=== PATIENT | female | born 1965 | race Caucasian/White ===

== ENCOUNTER → 2016-03-13 | Outpatient (CLI) | payer BC ==
[~2016-03-13] MED LIST: ADV250INH INH; ALBU83IN INH; IP6 PO; MAGN400T5 PO; MULT1TAB8 PO; NACCAP PO; SPIR1CAP INH; THEO300C PO; ZYRT10CA PO
[2016-03-13 20:59] LABS: BASO # 0.1 K/mm3 (0.0-0.2); BASO % 0.6 % (0.0-1.0); EOS # 0.2 K/mm3 (0.0-0.50); EOS % 1.3 % (0.0-3.0); LARGE UNSTAINED CELL # 0.2 K/mm3 (0.0-0.4); LARGE UNSTAINED CELL % 1.4 % (0.0-4.0); LYMPH # 1.3 K/mm3 (1.5-4.5); MEAN CORPUSCULAR HEMOGLOBIN 29.5 pg (27.0-33.0); MEAN CORPUSCULAR HGB CONC 32.5 g/dl (32.0-36.5); MEAN CORPUSCULAR VOLUME 90.7 fl (80.0-96.0); MONO # 0.6 K/mm3 (0.0-0.8); MONO % 4.9 % (0.0-5.0); NEUTROPHILS # 10.5 K/mm3 (1.8-7.7); NEUTROPHILS % 81.8 % (36.0-66.0); PLATELET COUNT, AUTOMATED 346 k/mm3 (150-450); RED CELL DISTRIBUTION WIDTH 12.1 % (11.5-14.5); WHITE BLOOD COUNT 12.8 K/mm3 (4.0-10.0)
== END ==
LOC: M SMT 15:27
PROVIDERS: ATTEND Internal Medicine Pulmonary Disease
DX: J44.1 Chronic obstructive pulmonary disease with (acute) exacerbation (principal)

== ENCOUNTER → 2016-04-17 | Outpatient (REF) | payer BC ==
[~2016-04-17] MED LIST changes: +THEO1CAP4 PO; -THEO300C PO
[2016-04-17 18:03] LABS: BASO % 0.3 % (0.0-1.0); EOS # 0.1 K/mm3 (0.0-0.50); EOS % 0.9 % (0.0-3.0); LARGE UNSTAINED CELL # 0.1 K/mm3 (0.0-0.4); LARGE UNSTAINED CELL % 1.2 % (0.0-4.0); LYMPH % 9.4 % (24.0-44.0); MEAN CORPUSCULAR HEMOGLOBIN 29.2 pg (27.0-33.0); MEAN CORPUSCULAR HGB CONC 32.3 g/dl (32.0-36.5); MEAN CORPUSCULAR VOLUME 90.5 fl (80.0-96.0); MONO # 0.5 K/mm3 (0.0-0.8); MONO % 4.6 % (0.0-5.0); NEUTROPHILS # 8.5 K/mm3 (1.8-7.7); NEUTROPHILS % 83.6 % (36.0-66.0); PLATELET COUNT, AUTOMATED 259 k/mm3 (150-450); RED CELL DISTRIBUTION WIDTH 12.7 % (11.5-14.5); WHITE BLOOD COUNT 10.1 K/mm3 (4.0-10.0)
[2016-04-17 18:16] LABS: ALBUMIN 3.8 GM/DL (3.2-5.2); ALBUMIN/GLOBULIN RATIO 1.09 (1.00-1.93); ALKALINE PHOSPHATASE 76 U/L (45-117); ALT/SGPT 21 U/L (12-78); ANION GAP 9 MEQ/L (8-16); AST/SGOT 22 U/L (15-37); BILIRUBIN,TOTAL 0.3 MG/DL (0.2-1.0); BLOOD UREA NITROGEN 13 MG/DL (7-18); CARBON DIOXIDE LEVEL 32 MEQ/L (21-32); CHLORIDE LEVEL 99 MEQ/L (98-107); CREATININE FOR GFR 0.58 MG/DL (0.55-1.02); GLOMERULAR FILTRATION RATE > 60.0 (>51); GLUCOSE, FASTING 116 MG/DL (70-105); SODIUM LEVEL 140 MEQ/L (136-145); THEOPHYLLINE LEVEL 4.2 UG/ML (10.0-20.0); TOTAL PROTEIN 7.3 GM/DL (6.4-8.2)
[2016-04-17 18:17] LABS: POTASSIUM SERUM 4.7 MEQ/L (3.5-5.1)
== END ==
LOC: M LAB REF 16:46
PROVIDERS: ATTEND Internal Medicine Pulmonary Disease
DX: J44.1 Chronic obstructive pulmonary disease with (acute) exacerbation (principal)

== ENCOUNTER → 2016-05-20 | Outpatient (CLI) | payer BC ==
--- NOTE | 2016-05-23 10:04 | SLEEPCENT ---
DATE OF STUDY: 05/20/2016 ORDERING PROVIDER: COBY Myers Nocturnal polysomnography was performed for evaluation of sleep apnea symptoms in this patient with excessive somnolence and abnormal nocturnal recording oximetry. 7 hours and 56 minutes of data were reviewed. There were 293 minutes of sleep identified. Sleep latency was prolonged at 76 minutes. Rapid eye movement (REM) latency was normal at 85 minutes. Sleep architecture showed fragmentation and periods of awake throughout the night. Overall sleep efficiency was reduced at 62.4%. There were three REM periods appreciated. Electrocardiogram (EKG) showed a sinus rhythm with an average heart rate of 88 beats per minute. Rate variability was seen surrounding respiratory events. Rate ranged 55-102. Electroencephalogram (EEG) showed normal waveforms for awake and sleep. There was mild alpha intrusion in non-REM stages. No focal events were identified. There were 45 respiratory events identified of 10 seconds in duration or greater for an apnea-hypopnea index of 9.2. The events were primarily obstructive, not exclusive to sleep stage, though REM clustering was identified late in the study, and not exclusive to body posture. Arousals from respiratory events occurred seven times per hour, and oxygen desaturations were seen into the 70s. Additionally, limb activity was noted with resultant arousals 9.2 times per hour. Only one train of 30 events was identified. IMPRESSION: 1. Obstructive sleep apnea syndrome (G47.33). Apnea-hypopnea index 9.2. 2. Possible periodic limb movement disorder (G47.61). Limb movement arousal index 9.2. RECOMMENDATION: Given the patient's advanced underlying lung disease and profound hypoxemia, referral back to the sleep disorder center for in-laboratory pressure titration is recommended. Pending results of pressure therapy, interventions to reduce the frequency arousal from limb activity may also be helpful.
== END ==
LOC: M SLEEP 20:10
PROVIDERS: ATTEND Nurse Practitioner Adult Health
DX: G47.33 Obstructive sleep apnea (adult) (pediatric) (principal)

== ENCOUNTER → 2016-05-21 | Outpatient (CLI) | payer BC | LOC: M SMT 15:41 | PROVIDERS: ATTEND Nurse Practitioner Adult Health | DX: J44.1 Chronic obstructive pulmonary disease with (acute) exacerbation (principal) ==

== ENCOUNTER → 2016-06-11 | Outpatient (CLI) | payer BC ==
--- NOTE | 2016-06-13 14:31 | SLEEPCENT ---
DATE OF PROCEDURE: 06/11/2016 REQUESTING PROVIDER: Nedra Justice NP INTERPRETATION: Nocturnal polysomnography was performed for the titration of pressure therapy in this patient with obstructive sleep apnea syndrome, apnea-hypopnea index of 9.2. For testing, a ResMed Quattro full face mask of small size was used, 4 cm of water pressure were applied to the circuit and the lights were extinguished. 6 hours and 51 minutes of data were reviewed. There were 347 minutes of sleep identified. Sleep latency was mildly prolonged at 17 minutes. Rapid eye movement (REM) latency was more so prolonged at 120 minutes. Sleep architecture improved with optimal pressure therapy. There were four REM periods appreciated. Overall sleep efficiency was 85%. EKG showed a sinus rhythm with an occasional premature ventricular contractions (PVCs), average heart rate of 78 beats per minute. Electroencephalogram (EEG) showed reasonably normal waveforms for awake and sleep. Respiratory events were found best palliated with CPAP at a pressure of +7. Hypoventilatory oxygen desaturations prompted the addition of supplemental oxygen and best sleep was seen at a CPAP pressure of +7 with 2 liters of oxygen bled through the system. Some limb activity was seen late in the study. Limb movement arousal index was 9.3, similar to diagnostic night. IMPRESSION: 1. Obstructive sleep apnea syndrome (G47.33). 2. Periodic limb movement disorder (G47.61). RECOMMENDATIONS: Nightly use of pressure therapy at 7 cm of water with 2 liters of oxygen bled through the system should be sufficient to address the patient's respiratory disruption. Should sleep problems persist, interventions to reduce the frequency or arousals from limb activity may also be helpful.
== END ==
LOC: M SLEEP 19:55
PROVIDERS: ATTEND Nurse Practitioner Adult Health
DX: G47.33 Obstructive sleep apnea (adult) (pediatric) (principal); G47.61 Periodic limb movement disorder

== ENCOUNTER → 2016-09-14 | Outpatient (REF) | payer BC ==
[~2016-09-14] MED LIST changes: -NACCAP PO; +NACCAP2 PO
== END ==
LOC: M LAB REF 17:18
PROVIDERS: ATTEND Internal Medicine Pulmonary Disease
DX: J44.9 Chronic obstructive pulmonary disease, unspecified (principal)

== ENCOUNTER → 2016-11-13 | Outpatient (REF) | payer BC | LOC: M LAB REF 17:05 | PROVIDERS: ATTEND Nurse Practitioner Adult Health | DX: J44.1 Chronic obstructive pulmonary disease with (acute) exacerbation (principal) ==

== ENCOUNTER → 2016-12-06 | Outpatient (REF) | payer BC ==
[2016-12-06 20:03] LABS: MEAN CORPUSCULAR HEMOGLOBIN 29.1 pg (27.0-33.0); MEAN CORPUSCULAR HGB CONC 31.6 g/dl (32.0-36.5); MEAN CORPUSCULAR VOLUME 92.1 fl (80.0-96.0); PLATELET COUNT, AUTOMATED 277 10^3/uL (150-450); RED CELL DISTRIBUTION WIDTH 12.8 % (11.5-14.5); WHITE BLOOD COUNT 14.7 10^3/uL (4.0-10.0)
[2016-12-06 20:06] LABS: ADD MANUAL DIFFER YES; DIFF SLIDE NUMBER 336
[2016-12-06 22:03] LABS: BASOPHILS 2 % (0-4)
== END ==
LOC: M LAB REF 19:03
PROVIDERS: ATTEND Internal Medicine Pulmonary Disease
DX: J44.9 Chronic obstructive pulmonary disease, unspecified (principal)

== ENCOUNTER 2016-12-07 13:08 | Outpatient (RCR) | payer BC | END 2016-12-08 | LOC: M PR 13:08 | PROVIDERS: ATTEND Internal Medicine Pulmonary Disease | DX: Z51.89 Encounter for other specified aftercare (principal); J43.1 Panlobular emphysema ==

== ENCOUNTER → 2016-12-11 | Outpatient (REF) | payer BC | LOC: M LAB REF 09:14 | PROVIDERS: ATTEND Internal Medicine Pulmonary Disease | DX: J44.1 Chronic obstructive pulmonary disease with (acute) exacerbation (principal) ==

== ENCOUNTER 2017-01-07 15:32 | Outpatient (RCR) | payer BC | END 2017-01-08 | LOC: M PR 15:32 | PROVIDERS: ATTEND Internal Medicine Pulmonary Disease | DX: J43.1 Panlobular emphysema (principal) ==

== ENCOUNTER 2017-01-09 08:38 | Outpatient (RCR) | payer BC | END 2017-02-07 | LOC: M PR 08:38 | PROVIDERS: ATTEND Internal Medicine Pulmonary Disease | DX: J43.1 Panlobular emphysema (principal) ==

== ENCOUNTER → 2017-01-28 | Outpatient (REF) | payer BC | LOC: M LAB REF 09:42 | PROVIDERS: ATTEND Internal Medicine Pulmonary Disease | DX: J44.1 Chronic obstructive pulmonary disease with (acute) exacerbation (principal) ==

== ENCOUNTER 2017-02-08 09:12 | Outpatient (RCR) | payer BC | END 2017-03-10 | LOC: M PR 09:12 | DX: J43.1 Panlobular emphysema (principal) ==

== ENCOUNTER 2017-03-12 09:27 | Outpatient (RCR) | payer BC | END 2017-04-10 | LOC: M PR 09:27 | DX: Z51.89 Encounter for other specified aftercare (principal); J43.1 Panlobular emphysema ==

== ENCOUNTER → 2017-05-09 | Outpatient (CLI) | payer BC ==
[2017-05-09 18:33] LABS: BASO # 0.1 10^3/uL (0.0-0.2); BASO % 0.9 % (0.0-1.0); EOS # 0.2 10^3/uL (0.0-0.50); EOS % 1.8 % (0.0-3.0); HEMOGLOBIN 14.8 g/dl (12.0-16.0); IMMATURE GRANULOCYTE % 0.2 % (0-3.0); LYMPH % 10.5 % (24.0-44.0); MEAN CORPUSCULAR HEMOGLOBIN 29.6 pg (27.0-33.0); MEAN CORPUSCULAR HGB CONC 32.2 g/dl (32.0-36.5); MONO # 0.7 10^3/uL (0.0-0.8); MONO % 7.2 % (0.0-5.0); NEUTROPHILS # 7.8 10^3/uL (1.8-7.7); NEUTROPHILS % 79.4 % (36.0-66.0); PLATELET COUNT, AUTOMATED 262 10^3/uL (150-450); RED CELL DISTRIBUTION WIDTH 12.5 % (11.5-14.5); WHITE BLOOD COUNT 9.9 10^3/uL (4.0-10.0)
[2017-05-09 18:44] LABS: THEOPHYLLINE LEVEL 7.8 UG/ML (10.0-20.0)
== END ==
LOC: M SMT 14:30
DX: J44.1 Chronic obstructive pulmonary disease with (acute) exacerbation (principal)
CPT/HCPCS: 80198

== ENCOUNTER 2017-09-05 12:36 | Outpatient (RCR) | payer BC | END 2017-09-07 | LOC: M PR 12:36 | DX: Z51.89 Encounter for other specified aftercare (principal); J43.1 Panlobular emphysema ==

== ENCOUNTER 2017-09-13 14:00 | Outpatient (RCR) | payer BC | END 2017-10-08 | LOC: M PR 09-18 14:26 | DX: Z51.89 Encounter for other specified aftercare (principal); J43.1 Panlobular emphysema ==

== ENCOUNTER 2017-10-10 14:42 | Outpatient (RCR) | payer BC | END 2017-11-08 | LOC: M PR 14:42 | DX: J43.1 Panlobular emphysema (principal) ==

== ENCOUNTER 2017-11-14 14:13 | Outpatient (RCR) | payer BC | END 2017-12-08 | LOC: M PR 14:13 | DX: J43.1 Panlobular emphysema (principal) ==

== ENCOUNTER 2017-12-09 14:34 | Outpatient (RCR) | payer BC | END 2018-01-08 | LOC: M PR 14:34 | DX: J43.1 Panlobular emphysema (principal) ==

== ENCOUNTER 2017-12-30 15:35 | Outpatient (RCR) | payer SELFPAY | END 2018-01-08 | LOC: M PR 15:35 | DX: J43.1 Panlobular emphysema (principal) | CPT/HCPCS: 93797 ==

== ENCOUNTER 2018-03-20 14:41 | Outpatient (RCR) | payer SELFPAY ==
[~2018-03-20 14:41] MED LIST changes: +BREO1INH3 INH; +CENTCHW4 PO; +DOXY-350 PO; +LEVA1TAB2 PO; +LEVAINH INH; +MAGN200T PO; +MUCI600T31 PO; +NAC500CA PO; +NETT435C PO; +PROBCAP14 PO; +THEO1CAP2 PO; +XANA0.5T PO; +[UNRECOGNIZED DRUG - CODE] PO; +[UNRECOGNIZED DRUG - CODE] PO; +[UNRECOGNIZED DRUG - CODE] XX; +[UNRECOGNIZED DRUG - OTHER]; +[UNRECOGNIZED DRUG - OTHER] PO
== END 2018-04-10 ==
LOC: M PR 14:41
PROVIDERS: ATTEND Internal Medicine Pulmonary Disease
DX: J43.1 Panlobular emphysema (principal)

== ENCOUNTER → 2018-04-08 | Outpatient (CLI) | payer BC ==
--- NOTE | 2018-04-08 16:06 | REP ---
Clinical: Dyspnea. Technique: PA and lateral. Comparison: 01/21/2017. Findings: Advanced COPD and emphysematous changes with scattered scarring and interstitial disease remains stable. Mediastinum and cardiac silhouette are unchanged and within normal limits. No focal consolidation, effusion, or pneumothorax skeletal structures intact. Impression: 1. Advanced COPD and emphysematous disease with perihilar and upper lobe scarring and interstitial changes. Findings remain relatively stable. 2. No new acute mediastinal or pleuroparenchymal process identified. Electronically Signed by Steve Minaya MD 04/08/2018 03:57 P
== END ==
LOC: M SMT 15:27
PROVIDERS: ATTEND Internal Medicine Pulmonary Disease
DX: J44.9 Chronic obstructive pulmonary disease, unspecified (principal); R07.1 Chest pain on breathing

== ENCOUNTER 2018-06-12 14:00 | Outpatient (RCR) | payer SELFPAY ==
[~2018-06-12 14:00] MED LIST changes: +NACCAP PO; -NACCAP2 PO
== END 2018-07-08 ==
LOC: M PR 14:00
PROVIDERS: ATTEND Internal Medicine Pulmonary Disease
DX: J43.1 Panlobular emphysema (principal)

== ENCOUNTER → 2018-08-12 | Outpatient (CLI) | payer BC ==
[~2018-08-12] MED LIST changes: +ACET1TAB55 PO; +CETI10TA4 PO; +IBUP-1022 PO; +INCR1INH INH; +L-THEANINE PO; +LEVA0.6322 INH; +LIDO1PAD TOP; +MAGN400C PO; +MULTCAP PO; +NETTLE LEAF PO; +PANT40TA3; +PASSION FLOWER PO; +PRED10TA2 PO; +THEO300T13 PO; +TRAM50TA2; +[UNRECOGNIZED DRUG - CODE] PO
--- NOTE | 2018-08-13 01:56 | REP ---
Clinical: Bronchiectasis. Technique: PA and lateral. Comparison: 04/08/2018. Findings: Advanced COPD/emphysematous changes are appreciated primarily involving the bilateral lower lung zones with upper lobe fibrosis/scarring. No focal consolidation, effusion, or pneumothorax appreciated. The cardiac silhouette is normal. Impression: Advanced COPD/emphysematous changes with upper lobe scarring and fibrotic changes. No obvious acute process. If the patient remains symptomatic consider chest CT for further investigation. Electronically Signed by Steve Minaya MD 08/13/2018 01:48 A
== END ==
LOC: M SMT 11:28
PROVIDERS: ATTEND Internal Medicine Pulmonary Disease
DX: J43.9 Emphysema, unspecified (principal); J84.10 Pulmonary fibrosis, unspecified

== ENCOUNTER → 2018-08-25 | Outpatient (CLI) | payer BC ==
--- NOTE | 2018-08-25 13:35 | REP ---
CHEST X-RAY: TWO VIEWS. HISTORY: Chronic obstructive pulmonary disease. COMPARISON CHEST X-RAY: August 12, 2018 and April 08, 2018. FINDINGS: The lungs remain markedly hyperinflated with extensive emphysematous changes most pronounced in the lower lobes bilaterally where there is oligemia and some mild bilateral perihilar and bibasilar linear fibrosis. Heart is not enlarged. No acute infiltrate is seen. Findings are unchanged from comparison exams. IMPRESSION: Severe emphysematous changes principally in the lower lobes. No acute infiltrate is appreciated. Electronically Signed by Ramone Paredes MD 08/25/2018 01:43 P
== END ==
LOC: M ADAMS 12:17
PROVIDERS: ATTEND Physician Assistant Medical
DX: J44.9 Chronic obstructive pulmonary disease, unspecified (principal)

== ENCOUNTER → 2018-08-26 | Outpatient (REF) | payer BC | LOC: M LAB REF 17:10 | PROVIDERS: ATTEND Internal Medicine Pulmonary Disease | DX: J44.1 Chronic obstructive pulmonary disease with (acute) exacerbation (principal) ==

== ENCOUNTER → 2018-09-03 | Outpatient (REF) | payer BC | LOC: M LAB REF 12:56 | PROVIDERS: ATTEND Internal Medicine Pulmonary Disease | DX: J44.9 Chronic obstructive pulmonary disease, unspecified (principal) ==

== ENCOUNTER 2018-10-20 11:46 | Inpatient (IN) | payer BC, MEDICARE ==
[~2018-10-20] VITALS: Ht 167.6 cm; Wt 44.6 kg
[2018-10-20] MEDS: ENOXAPARIN 40 MG/0.4 ML SYRINGE (J1650) SC SCH (09:00)
[2018-10-20 14:10] VITALS: BP 126/69
[2018-10-20 14:53] LABS: HEMATOCRIT 41.9 % (36.0-47.0); HEMOGLOBIN 12.6 g/dl (12.0-15.5); MEAN CORPUSCULAR HEMOGLOBIN 28.2 pg (27.0-33.0); MEAN CORPUSCULAR HGB CONC 30.1 g/dl (32.0-36.5); MEAN CORPUSCULAR VOLUME 93.7 fl (80.0-96.0); PLATELET COUNT, AUTOMATED 246 10^3/uL (150-450); RED BLOOD COUNT 4.47 10^6/uL (4.00-5.40); WHITE BLOOD COUNT 8.3 10^3/uL (4.0-10.0)
[2018-10-20] MEDS ORDERED: diphenhydrAMINE 25 MG CAP PO ONE (15:00)
[2018-10-20] MEDS ORDERED: predniSONE 20 MG TAB PO ONE (15:00)
[2018-10-20 15:14] LABS: ALBUMIN 3.6 GM/DL (3.2-5.2); ALT/SGPT 24 U/L (12-78); BILIRUBIN,TOTAL 0.2 MG/DL (0.2-1.0); BLOOD UREA NITROGEN 19 MG/DL (7-18); C REACTIVE PROTEIN QUANTITATIV < 0.30 MG/DL (0.00-0.30); CALCIUM LEVEL 9.1 MG/DL (8.5-10.1); CARBON DIOXIDE LEVEL 38 MEQ/L (21-32); CHLORIDE LEVEL 98 MEQ/L (98-107); CK-MB VALUE MASS 2.1 NG/ML (<3.6); CPK CREATINE PHOSPHOKINASE 62 U/L (26-192); CREATININE FOR GFR 0.36 MG/DL (0.55-1.30); GLOMERULAR FILTRATION RATE > 60.0 (>51); GLUCOSE, FASTING 91 MG/DL (70-100); MB/CK RELATIVE INDEX 3.39 (< OR =4); POTASSIUM SERUM 3.8 MEQ/L (3.5-5.1); SODIUM LEVEL 141 MEQ/L (136-145); TOTAL PROTEIN 6.9 GM/DL (6.4-8.2); TROPONIN I < 0.02 NG/ML (< 0.10)
[2018-10-20 15:16] LABS: ERYTHROCYTE SEDIMENTATION RATE 24 mm/hr (0-30)
[2018-10-20] MEDS ORDERED: ALPRAZolam 0.5 MG TAB PO PRN (15:45)
[2018-10-20] MEDS ORDERED: VENTAER INH (16:01)
[2018-10-20] MEDS ORDERED: ALPR0.25 PO (16:01)
[2018-10-20] MEDS ORDERED: ALPRAZolam 0.25 MG TAB PO PRN (16:30)
[2018-10-20] MEDS: LACTOBACILLUS ACIDOPHILUS CAP (BACID) PO SCH (17:27)
--- NOTE | 2018-10-20 17:57 | REP ---
REASON: Cough and dyspnea. All priors were reviewed. The latest of which is dated 07/29/2018. The lack of intravenous contrast decreases the sensitivity of the exam. The mediastinum and pulmonary ro are unchanged. There is no evidence of mediastinal or hilar adenopathy. There are no pleural or pericardial effusions. There is no significant change in the appearance of the imaged upper abdomen or imaged osseous structures. Evaluation of the lung kramer again show chronic emphysematous changes which are rather marked. Multifocal nodular density seen previously throughout the lung kramer have nearly completely cleared with the exception of a density in the superior segment of the left lower lobe which has increased slightly in size. There are no frankly new abnormal nodules. There is marked lung field hyperexpansion and marked emphysematous change status quo. There is saccular bronchiectasis status quo. Scattered ground glass opacities are again seen with biapical predominance status quo. IMPRESSION: Marked emphysematous changes and chronic lung field changes as described above. The nodular density seen in the superior segment of the left lower lobe has increased in size. The etiology of this is uncertain. If neoplastic change is of clinical concern then I would recommend followup with PET CT. Electronically Signed by Scooter Chu DO 10/21/2018 11:57 A
[2018-10-20] MEDS: PIPERACILLIN/TAZOBACTAM SOD 4.5 GM in D5W MINI-BAG PLUS 50 ML IV SCH ×2 (18:36→21:24)
--- NOTE | 2018-10-20 18:41 | REP ---
REASON: History of pneumonia. COMPARISON: Multiple the latest 08/12/2018. There is marked bullous emphysematous change and there are marked chronic lung field opacities all having a stable appearance. There is marked lung field hyperexpansion. There is no change in the osseous structures. There is no change in the appearance of the cardiomediastinal silhouette. IMPRESSION: Marked chronic changes. Electronically Signed by Scooter Chu DO 10/21/2018 11:57 A
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
[2018-10-20] MEDS: ACETYLCYSTEINE 20% 4 ML VIAL (200MG/ML) PO SCH (21:00)
[2018-10-20] MEDS: guaiFENesin ER 600 MG TAB PO SCH (21:24)
[2018-10-20] MEDS: CETIRIZINE (ZyrTEC) 10 MG TAB PO SCH (21:24)
[2018-10-20 22:00] VITALS: BP 121/69
[2018-10-21] MEDS: PIPERACILLIN/TAZOBACTAM SOD 4.5 GM in D5W MINI-BAG PLUS 50 ML IV SCH ×4 (03:18→21:20)
[2018-10-21 06:00] VITALS: BP 105/63
[2018-10-21 06:59] LABS: HEMOGLOBIN 12.9 g/dl (12.0-15.5); MEAN CORPUSCULAR HEMOGLOBIN 27.7 pg (27.0-33.0); MEAN CORPUSCULAR VOLUME 92.3 fl (80.0-96.0); PLATELET COUNT, AUTOMATED 266 10^3/uL (150-450); RED BLOOD COUNT 4.66 10^6/uL (4.00-5.40); WHITE BLOOD COUNT 6.7 10^3/uL (4.0-10.0)
[2018-10-21 07:20] LABS: BLOOD UREA NITROGEN 13 MG/DL (7-18); CALCIUM LEVEL 9.6 MG/DL (8.5-10.1); CARBON DIOXIDE LEVEL 39 MEQ/L (21-32); CHLORIDE LEVEL 100 MEQ/L (98-107); CREATININE FOR GFR 0.47 MG/DL (0.55-1.30); GLOMERULAR FILTRATION RATE > 60.0 (>51); GLUCOSE, FASTING 94 MG/DL (70-100); POTASSIUM SERUM 3.8 MEQ/L (3.5-5.1); SODIUM LEVEL 140 MEQ/L (136-145)
[2018-10-21] MEDS: BREO ELLIPTA INH SCH (08:18)
[2018-10-21] MEDS: ACETYLCYSTEINE 20% 4 ML VIAL (200MG/ML) PO SCH (08:18)
[2018-10-21] MEDS: INCRUSE ELLIPTA 62.5 MCG INH SCH (08:19)
[2018-10-21] MEDS: ENOXAPARIN 40 MG/0.4 ML SYRINGE (J1650) SC SCH ×2 (09:00→09:54)
[2018-10-21] MEDS: ACETYLCYSTEINE 600 MG PO SCH ×2 (09:00→21:20)
[2018-10-21] MEDS: guaiFENesin ER 600 MG TAB PO SCH ×2 (09:53→21:20)
[2018-10-21] MEDS: LACTOBACILLUS ACIDOPHILUS CAP (BACID) PO SCH ×3 (09:53→17:23)
[2018-10-21] MEDS: THEOPHYLLINE PO SCH (09:54)
[2018-10-21] MEDS: GASTROGRAFIN SOLUTION 30ML PO SCH ×2 (09:55→10:44)
--- NOTE | 2018-10-21 11:00 | IPNPDOC ---
Subjective Date Seen The patient was seen on 10/21/18. Subjective Chief Complaint/HPI Pt this morning without much change in her resp status. She states that she has been seen by Dr Schneider who plans on setting her up with PCN for outpt treatment. General: Reports: Fatigue Constitutional: Denies: Chills, Fever Pulmonary: Reports: Dyspnea, Cough Cardiovascular: Denies: Chest Pain, Palpitations Gastrointestinal: Denies: Nausea, Vomiting, Diarrhea Neurological: Reports: Weakness Psych: Reports: Mood Normal, Anxiety Objective Physical Examination General Exam: Positive: Alert, Cooperative, No Acute Distress ENT Exam: Positive: Mucous membr. moist/pink Neck Exam: Positive: Supple; Negative: JVD Chest Exam: Positive: Diminished; Negative: Clear to auscultation, Normal air movement Heart Exam: Positive: Rate Normal, Normal S1, Normal S2 Abdomen Exam: Positive: Normal bowel sounds, Soft; Negative: Tenderness Extremity Exam: Negative: Edema Neuro Exam: Positive: Normal Speech Psych Exam: Positive: Mental status NL, Mood NL Assessment /Plan Problems (1) Bronchiectasis with (acute) exacerbation Status: Acute Problem Text: Has had +sputum culture for Achromobacter, ID following, plans to treat with PCN, although pt with documented allergy and therefore initiatio done inpt premedicated with Benadryl and Prednisone. If tolerates, will be scheduled for PICC for outpt administration. PICC is scheduled for tomorrow. (2) Pneumonia Status: Acute Problem Text: See above. Plan/VTE VTE Prophylaxis Ordered?: Yes VS, I&O, 24H, Fishbone Vital Signs/I&O Vital Signs Date Time Temp Pulse Resp B/P (MAP) Pulse Ox O2 Delivery O2 Flow Rate FiO2 10/21/18 06:00 98.8 75 18 105/63 (77) 95 3.0 I&O- Last 24 Hours up to 6 AM 10/21/18 06:00 Intake Total 580 ml Output Total 1150 ml Balance -570 ml Laboratory Data 24H LABS Laboratory Tests 2 10/20/18 14:36: Nucleated Red Blood Cells % (auto) 0.0, Erythrocyte Sedimentation Rate 24, Anion Gap 5L, Glomerular Filtration Rate > 60.0, Lactic Acid Level 0.6, Blood Urea Nitrogen 19H, Creatinine 0.36L, Sodium Level 141, Potassium Level 3.8, Chloride Level 98, Carbon Dioxide Level 38H, Calcium Level 9.1, Aspartate Amino Transf (AST/SGOT) 15, Alanine Aminotransferase (ALT/SGPT) 24, Total Creatine Kinase 62, Alkaline Phosphatase 89, Total Bilirubin 0.2, Total Protein 6.9, Albumin 3.6, Creatine Kinase MB 2.1, Creatine Kinase MB Relative Index 3.39, Troponin I < 0.02, C-Reactive Protein, Quantitative < 0.30, Albumin/Globulin Ratio 1.09 10/21/18 06:34: Nucleated Red Blood Cells % (auto) 0.0, Anion Gap 1L, Glomerular Filtration Rate > 60.0, Blood Urea Nitrogen 13, Creatinine 0.47L, Sodium Level 140, Potassium Level 3.8, Chloride Level 100, Carbon Dioxide Level 39H, Calcium Level 9.6 CBC/BMP Laboratory Tests 10/20/18 14:36 Red Blood Count 4.47, Mean Corpuscular Volume 93.7, Mean Corpuscular Hemoglobin 28.2, Mean Corpuscular Hemoglobin Concent 30.1 L, Red Cell Distribution Width 13.0, Calcium Level 9.1, Aspartate Amino Transf (AST/SGOT) 15, Alanine Aminotransferase (ALT/SGPT) 24, Total Creatine Kinase 62, Alkaline Phosphatase 89, Total Bilirubin 0.2, Total Protein 6.9, Albumin 3.6 10/21/18 06:34 Red Blood Count 4.66, Mean Corpuscular Volume 92.3, Mean Corpuscular Hemoglobin 27.7, Mean Corpuscular Hemoglobin Concent 30.0 L, Red Cell Distribution Width 13.0, Calcium Level 9.6 Microbiology Microbiology 10/20/18 Blood Culture, Received Pending 10/20/18 Blood Culture, Received Pending 10/20/18 Gram Stain - Final, Resulted 10/20/18 Sputum Culture, Resulted Pending LAISHA FORBES PA-C Oct 21, 2018 11:00 Eliceo Nicole MD Oct 21, 2018 11:53
[2018-10-21] MEDS ORDERED: ISOVUE-370 76% 100ML VIAL (Q9967) As Ordered ONE (11:02)
[2018-10-21 14:00] VITALS: BP 145/60
[2018-10-21] MEDS: THEOPHYLLINE (THEO-24) 100MG SR **CAPSULE PO SCH (14:03)
[2018-10-21] MEDS: LEVALBUTEROL 1.25 MG/0.5 ML CONCENTRATE NEB INH PRN (15:54)
--- NOTE | 2018-10-21 17:39 | IPN ---
DATE: 10/20/2018 The patient was admitted directly from my office for pneumonia with severe chronic obstructive pulmonary disease (COPD), increasing shortness of breath, cough productive of yellow phlegm, and low-grade fevers. She has a history of severe COPD, bronchiectasis, oxygen dependent. 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 She has failed outpatient therapy with Levaquin and two courses of Bactrim. LABORATORY DATA FROM 10/20/2018: White count 8.3, hemoglobin 12.6, hematocrit 41.9, platelets 246. ESR 24. Sodium 141, potassium 3.8, chloride 98, bicarbonate 38, BUN 19, creatinine 0.36, glucose 91, calcium 9.1, AST 15, ALT 24, alkaline phosphatase 89, CPK 62, CRP less than 0.3, total protein 6.9. Blood cultures two sets were drawn. Sputum Gram stain culture was sent. IMAGING STUDIES: CT chest shows marked emphysematous changes, chronic lung field changes, nodular density seen in the superior segment of the left lower lobe has increased in size, other multifocal nodular densities have completely cleared with the exception of the one in that left lower lobe. Plan will be to admit the patient for a peripherally inserted central catheter (PICC) line, challenge her with IV Zosyn as this is the drug of choice for Achromobacter xylosoxidans that has grown on cultures from 08/12/2018, 08/26/2018, 09/03/2018 and 07/29/2018. The patient has a vague allergy to penicillin with a rash on her upper extremity as a child and she has agreed to be challenged with penicillin as it is the drug of choice. Please premedicate her with prednisone and Benadryl. Schedule PICC line in the morning. Hopefully, the patient could be discharged home in the next 48 hours with IV Zosyn for two weeks.
--- NOTE | 2018-10-21 19:26 | IPN ---
DATE: 10/21/2018 Mrs. Berman seems to be doing better today. She is in better spirits. She states her cough and shortness of breath have mildly improved. She is scheduled to have her peripherally inserted central catheter (PICC) line placed tomorrow. Cough is productive of yellow phlegm. No nausea, vomiting, or diarrhea. No allergies. No rashes. She has tolerated penicillin so far without any problem. She has received a total of five doses. LABORATORY DATA: White count is 6.7, hemoglobin 12.9, hematocrit 43, platelets 266. Sodium 140, potassium 3.8, chloride 100, bicarbonate 39, BUN 13, creatinine 0.47, glucose 94, calcium 9.6, CRP less than 0.3. Blood cultures no growth after 24 hours. Sputum culture is pending. Gram-stain had moderate gram-negative rods and moderate white cells. CT chest shows marked emphysematous changes with a nodular density in the superior segment of the left lower lobe increased in size, discussed with Dr. Paredes who feels this is an inspissated mucus with possibility of pneumonia and not a mass. CT of the abdomen was also reviewed. It did not show any evidence of recurrent stromal tumor. IMPRESSION: 1. Chronic obstructive pulmonary disease (COPD) exacerbation with Achromobacter infection for the past three months. Patient on IV Zosyn and tolerating well. 2. History of chronic bronchiectasis, pulmonary cachexia and chronic respiratory hypercapnic failure. Currently on two liters of oxygen and doing better. 3. Stromal tumor, status post resection [address] of the abdomen showed no evidence of recurrence. PLAN: Consult patient and family services (PFS) for home IV antibiotic with Zosyn at a dose of 13.5 grams every 24 hours for a total of 14 days. A prescription has been written and given to charge nurse, Mandie, to discuss with Divine for home IV antibiotic. Anticipated discharge tomorrow afternoon hopefully. Followup in my office in 10 days. Laboratory work to be done as an outpatient, weekly complete blood count (CBC), comprehensive metabolic panel (CMP), C-reactive protein (CRP). Patient with a presumed allergy to penicillin but has tolerated Zosyn. The rash was described as a fine rash on her arm as a kid.
--- NOTE | 2018-10-21 20:38 | ECGEPIP ---
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
[2018-10-21] MEDS: CETIRIZINE (ZyrTEC) 10 MG TAB PO SCH (21:20)
[2018-10-21 22:00] VITALS: BP 110/58
[2018-10-22] MEDS: PIPERACILLIN/TAZOBACTAM SOD 4.5 GM in D5W MINI-BAG PLUS 50 ML IV SCH ×4 (04:02→21:32)
[2018-10-22] MEDS: ACETAMINOPHEN TAB 650MG DOSE (2X325MG) PO PRN ×2 (04:07→15:35)
[2018-10-22 06:00] VITALS: BP 98/50
[2018-10-22 06:17] LABS: BASO # 0.1 10^3/uL (0.0-0.2); BASO % 1.2 % (0.0-1.0); EOS # 0.2 10^3/uL (0.0-0.50); EOS % 2.9 % (0.0-3.0); HEMATOCRIT 40.2 % (36.0-47.0); HEMOGLOBIN 12.2 g/dl (12.0-15.5); LYMPH # 1.6 10^3/uL (1.5-4.5); LYMPH % 22.6 % (24.0-44.0); MEAN CORPUSCULAR HEMOGLOBIN 28.7 pg (27.0-33.0); MEAN CORPUSCULAR HGB CONC 30.3 g/dl (32.0-36.5); MEAN CORPUSCULAR VOLUME 94.6 fl (80.0-96.0); MONO # 0.7 10^3/uL (0.0-0.8); MONO % 10.5 % (0.0-5.0); NEUTROPHILS # 4.3 10^3/uL (1.8-7.7); NEUTROPHILS % 62.4 % (36.0-66.0); PLATELET COUNT, AUTOMATED 227 10^3/uL (150-450); RED BLOOD COUNT 4.25 10^6/uL (4.00-5.40); WHITE BLOOD COUNT 6.9 10^3/uL (4.0-10.0)
[2018-10-22 07:28] LABS: BLOOD UREA NITROGEN 11 MG/DL (7-18); CALCIUM LEVEL 8.6 MG/DL (8.5-10.1); CARBON DIOXIDE LEVEL 39 MEQ/L (21-32); CHLORIDE LEVEL 100 MEQ/L (98-107); CREATININE FOR GFR 0.46 MG/DL (0.55-1.30); GLOMERULAR FILTRATION RATE > 60.0 (>51); GLUCOSE, FASTING 80 MG/DL (70-100); POTASSIUM SERUM 3.8 MEQ/L (3.5-5.1); SODIUM LEVEL 142 MEQ/L (136-145)
--- NOTE | 2018-10-22 07:48 | REP ---
REASON: History of stromal tumors status-post resection. CONTRAST 100 mL [id number]. COMPARISON: Upper abdominal images obtained during CT scanning of the chest 10/20/2018, 07/29/2018 and 04/19/2016 and 08/06/2014 with the latest prior abdominal CT for comparison of 01/28/2012. The lung bases show marked and severe bullous emphysematous changes. These are unchanged from the chest CT of 10/20/2018. The liver, gallbladder, spleen, pancreas, adrenal glands, and kidneys are within normal limits. The abdominal aorta and paraaortic regions are within normal limits. The bowel loops and their mesenteries are within normal limits. There is no evidence of an intraabdominal mass or adenopathy. There is a paucity of mesenteric fat which crowds the bowel loops. Additionally, the colon is noncontrast opacified decreasing evaluation of it. Bone window technique throughout the exam shows the imaged structures to be within normal limits for the patient's age. IMPRESSION: 1. Marked chronic lung base changes as described above. 2. No evidence of acute intraabdominal disease. Findings and limitations as described above. Electronically Signed by Scooter Chu DO 10/22/2018 09:35 A
[2018-10-22] MEDS: BREO ELLIPTA INH SCH (08:05)
[2018-10-22] MEDS: INCRUSE ELLIPTA 62.5 MCG INH SCH (08:05)
[2018-10-22] MEDS: guaiFENesin ER 600 MG TAB PO SCH ×2 (08:38→21:33)
[2018-10-22] MEDS: ACETYLCYSTEINE 600 MG PO SCH ×2 (08:38→21:33)
[2018-10-22] MEDS: LACTOBACILLUS ACIDOPHILUS CAP (BACID) PO SCH ×3 (08:39→19:03)
[2018-10-22] MEDS: THEOPHYLLINE PO SCH (08:39)
[2018-10-22] MEDS: ENOXAPARIN 40 MG/0.4 ML SYRINGE (J1650) SC SCH (08:41)
[2018-10-22] MEDS: LEVALBUTEROL 1.25 MG/0.5 ML CONCENTRATE NEB INH PRN (12:05)
[2018-10-22] MEDS ORDERED: LIDOCAINE 1% MDV 20ML VIAL As Ordered ONE (13:25)
[2018-10-22 14:00] VITALS: BP 120/60
--- NOTE | 2018-10-22 14:55 | IPNPDOC ---
Subjective Date Seen The patient was seen on 10/22/18. Subjective Chief Complaint/HPI breathing better. no itching, no rash noted. Constitutional: Denies: Chills Skin: Denies: Rash Pulmonary: Reports: Cough (slightly productive) Gastrointestinal: Denies: Nausea, Abdominal Pain Hematologic: Denies: Bruising Neurological: Denies: Weakness Psych: Reports: Mood Normal Objective Physical Examination General Exam: Positive: Alert, Cooperative, No Acute Distress ENT Exam: Positive: Mucous membr. moist/pink Neck Exam: Positive: Supple; Negative: JVD Chest Exam: Positive: Diminished; Negative: Clear to auscultation, Normal air movement Heart Exam: Positive: Rate Normal, Normal S1, Normal S2 Abdomen Exam: Positive: Normal bowel sounds, Soft; Negative: Tenderness Extremity Exam: Negative: Edema Neuro Exam: Positive: Normal Speech Psych Exam: Positive: Mental status NL, Mood NL Assessment /Plan Problems (1) Bronchiectasis with (acute) exacerbation Status: Acute Problem Text: 10/22: returned this PM from IR where PICC was placed in right arm. seems to be tolerating zosyn so far. Has had +sputum culture for Achromobacter, ID following, plans to treat with PCN, although pt with documented allergy and therefore inititial rx done inpt premedicated with Benadryl and Prednisone. If tolerates, will be scheduled for PICC for outpt administration. PICC is scheduled for tomorrow. (2) Pneumonia Status: Chronic Problem Text: See above. Plan/VTE VTE Prophylaxis Ordered?: Yes Plan Anticipated Discharge: Home With Services VS, I&O, 24H, [facility], [facility] Vital Signs/I&O Vital Signs Date Time Temp Pulse Resp B/P (MAP) Pulse Ox O2 Delivery O2 Flow Rate FiO2 10/22/18 14:10 91 16 94 2 10/22/18 12:25 99.9 10/22/18 06:00 98/50 (66) I&O- Last 24 Hours up to 6 AM 10/22/18 06:00 Intake Total 1230 ml Output Total 2220 ml Balance -990 ml Laboratory Data 24H LABS Laboratory Tests 2 10/22/18 05:50: Immature Granulocyte % (Auto) 0.4, White Blood Count 6.9, Red Blood Count 4.25, Hemoglobin 12.2, Hematocrit 40.2, Mean Corpuscular Volume 94.6, Mean Corpuscular Hemoglobin 28.7, Mean Corpuscular Hemoglobin Concent 30.3L, Red Cell Distribution Width 13.2, Platelet Count 227, Neutrophils (%) (Auto) 62.4, Lymphocytes (%) (Auto) 22.6L, Monocytes (%) (Auto) 10.5H, Eosinophils (%) (Auto) 2.9, Basophils (%) (Auto) 1.2H, Neutrophils # (Auto) 4.3, Lymphocytes # (Auto) 1.6, Monocytes # (Auto) 0.7, Eosinophils # (Auto) 0.2, Basophils # (Auto) 0.1, Nucleated Red Blood Cells % (auto) 0.0, Anion Gap 3L, Glomerular Filtration Rate > 60.0, Blood Urea Nitrogen 11, Creatinine 0.46L, Sodium Level 142, Potassium Level 3.8, Chloride Level 100, Carbon Dioxide Level 39H, Calcium Level 8.6 CBC/BMP Laboratory Tests 10/22/18 05:50 Red Blood Count 4.25, Mean Corpuscular Volume 94.6, Mean Corpuscular Hemoglobin 28.7, Mean Corpuscular Hemoglobin Concent 30.3 L, Red Cell Distribution Width 13.2, Neutrophils (%) (Auto) 62.4, Lymphocytes (%) (Auto) 22.6 L, Monocytes (%) (Auto) 10.5 H, Eosinophils (%) (Auto) 2.9, Basophils (%) (Auto) 1.2 H, Neutrophils # (Auto) 4.3, Lymphocytes # (Auto) 1.6, Monocytes # (Auto) 0.7, Eosinophils # (Auto) 0.2, Basophils # (Auto) 0.1, Calcium Level 8.6 Microbiology Microbiology 10/20/18 Blood Culture - Preliminary, Resulted No growth after 24 hours . All specim... 10/20/18 Blood Culture - Preliminary, Resulted No Growth after 48 hours. All Specime... 10/20/18 Gram Stain - Final, Resulted 10/20/18 Sputum Culture, Resulted Pending Eliceo Nicole MD Oct 22, 2018 14:55
[2018-10-22] MEDS: THEOPHYLLINE (THEO-24) 100MG SR **CAPSULE PO SCH (15:32)
--- NOTE | 2018-10-22 21:01 | REP ---
PICC line insertion under ultrasound guidance. The procedure was performed by IOANA Sanchez, under the direct supervision of Dr. Paredes. The risks and benefits of the procedure were explained to the patient and informed consent was obtained the verbally and written. Directly prior to the start of the procedure, a formal timeout was completed in the procedure room. The right lateral brachial vein was localized using ultrasound guidance. The skin was prepped and draped in the sterile fashion. 2 ml 1% lidocaine was used as a local anesthetic. Using ultrasound guidance the right medial brachial vein was cannulated and a 0.018 guidewire was inserted and advanced to the SVC using fluoroscopic guidance. The needle was removed and a 4.5 Nigerian dilator and peel-away sheath was inserted over the guidewire. A 4.5 Nigerian single lumen catheter was cut to the length of 30 cm. The dilator was removed and the catheter was inserted over the guide wire with the tip ending in the SVC. The peel-away sheath was removed and the catheter was flushed with heparinized saline as per hospital protocol. The catheter was affixed to the skin and a sterile dressing was applied. The patient tolerated the procedure well and there were no immediate complications. 0.3 minutes of fluoroscopy time was utilized for this procedure. Some fluoroscopic images are performed with last image hold technology. These images require no additional radiation. Reviewed by IOANA Purdy 10/22/2018 04:55 P Electronically Signed by Ramone Paredes MD 10/22/2018 08:51 P
[2018-10-22] MEDS: CETIRIZINE (ZyrTEC) 10 MG TAB PO SCH (21:32)
[2018-10-22 22:00] VITALS: BP 111/64
[2018-10-22] MEDS ORDERED: SODIUM CHLORIDE 0.9% INJ 10 ML SYR IV PRN (22:45)
[2018-10-23] MEDS: PIPERACILLIN/TAZOBACTAM SOD 4.5 GM in D5W MINI-BAG PLUS 50 ML IV SCH ×2 (04:29→09:37)
[2018-10-23 06:00] VITALS: BP 111/59
[2018-10-23] MEDS ORDERED: SODIUM CHLORIDE 0.9% INJ 10 ML SYR IV SCH (06:00)
[2018-10-23 07:58] LABS: BLOOD UREA NITROGEN 9 MG/DL (7-18); CALCIUM LEVEL 8.5 MG/DL (8.5-10.1); CARBON DIOXIDE LEVEL 38 MEQ/L (21-32); CHLORIDE LEVEL 99 MEQ/L (98-107); GLOMERULAR FILTRATION RATE > 60.0 (>51); GLUCOSE, FASTING 86 MG/DL (70-100); POTASSIUM SERUM 3.9 MEQ/L (3.5-5.1); SODIUM LEVEL 141 MEQ/L (136-145)
[2018-10-23] MEDS: BREO ELLIPTA INH SCH (08:03)
[2018-10-23] MEDS: INCRUSE ELLIPTA 62.5 MCG INH SCH (08:04)
[2018-10-23 08:12] LABS: BASO # 0.1 10^3/uL (0.0-0.2); BASO % 1.4 % (0.0-1.0); EOS # 0.2 10^3/uL (0.0-0.50); HEMATOCRIT 39.7 % (36.0-47.0); LYMPH # 1.3 10^3/uL (1.5-4.5); LYMPH % 17.7 % (24.0-44.0); MEAN CORPUSCULAR HEMOGLOBIN 28.4 pg (27.0-33.0); MEAN CORPUSCULAR HGB CONC 30.2 g/dl (32.0-36.5); MEAN CORPUSCULAR VOLUME 93.9 fl (80.0-96.0); MONO # 0.8 10^3/uL (0.0-0.8); MONO % 10.5 % (0.0-5.0); NEUTROPHILS # 4.9 10^3/uL (1.8-7.7); NEUTROPHILS % 67.3 % (36.0-66.0); PLATELET COUNT, AUTOMATED 234 10^3/uL (150-450); RED BLOOD COUNT 4.23 10^6/uL (4.00-5.40); WHITE BLOOD COUNT 7.3 10^3/uL (4.0-10.0)
[2018-10-23] MEDS: ENOXAPARIN 40 MG/0.4 ML SYRINGE (J1650) SC SCH (08:51)
[2018-10-23] MEDS: LACTOBACILLUS ACIDOPHILUS CAP (BACID) PO SCH ×2 (09:37→12:30)
[2018-10-23] MEDS: guaiFENesin ER 600 MG TAB PO SCH (09:37)
[2018-10-23] MEDS: ACETYLCYSTEINE 600 MG PO SCH (09:38)
[2018-10-23] MEDS: THEOPHYLLINE PO SCH (09:40)
[2018-10-23] MEDS ORDERED: RISATAB3 PO (10:09)
--- NOTE | 2018-10-26 22:43 | DSES ---
DATE OF ADMISSION: 10/20/2018 DATE OF DISCHARGE: 10/23/2018 PRIMARY CARE PROVIDER: Julianne Guzman with Dr. Hill attending. HIGH SCHOOL TUTOR: Dr. Page INFECTIOUS DISEASE SPECIALIST: Dr. Aliyah Schneider HISTORY: This is a 52-year-old female patient who presented to [facility] Emergency Room with increasing shortness of breath. She has a history of emphysema, alpha-1 antitrypsin deficiency, chronic bronchiectasis with recurrent exacerbations, who in July 2018 grew Achromobacter in her sputum. Since this time and since her previous hospitalization, she has had increasing difficulty recovering with persistent increased shortness of breath, persistent increased use of oxygen requirements. Patient was admitted to the hospital for intravenous (IV) Zosyn to treat the Achromobacter in her sputum. She was admitted as she has a history documented of a penicillin allergy causing a rash when she was a child. This was initiated with use of Benadryl and prednisone, which the patient as subsequently continued during her hospitalization. DISCHARGE DIAGNOSES: 1. Chronic bronchiectasis with possible exacerbation. 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 3. Pulmonary cachexia. 4. Anxiety. DISCHARGE MEDICATIONS: - acetaminophen 650 mg every 4 hours as needed for pain or fever - alprazolam 0.25 mg twice daily as needed for anxiety - cetirizine 10 mg by mouth at bedtime - guaiphenesin 600 mg by mouth twice a day - acetylcarnitine 600 mg by mouth twice a day - Ventolin two puffs inhaled every 4 hours as needed for shortness of breath - Breo Ellipta 200/25 one puff daily - ibuprofen 600 mg by mouth three times a day as needed for pain - probiotic one tablet with meals - levalbuterol inhaled three times a day as needed for shortness of breath - magnesium oxide 400 mg by mouth at bedtime - multivitamin one tablet daily - theophylline 300 mg by mouth at bedtime and 400 mg by mouth every morning - Incruse Ellipta 62.5 mcg inhaled daily - L-Theanine 200 mg by mouth at bedtime - nettle leaf 500 mg by mouth twice a day - passion flower one tablet by mouth daily as needed for anxiety - Zosyn 13.5 mg every 24 hours times 14 days DISCHARGE PLAN: Followup with Dr. Schneider in [address] Page per his request. She should have weekly complete blood count (CBC), comprehensive metabolic panel (CMP), and C-reactive protein (CRP) per Dr. Schneider. She should followup with me as scheduled. DISCHARGE DIET: Regular. ACTIVITY: As tolerated.
== END 2018-10-23 14:49 | disposition home or self-care (01) | DRG 140 ==
LOC: M MSPAV 13:55
PROVIDERS: ADMIT Internal Medicine; ATTEND Family Medicine
PROC: 02HV33Z Insertion of Infusion Device into Superior Vena Cava, Percutaneous Approach (ICD-10-PCS; principal; 2018-10-22 14:30)
DX: J47.1 Bronchiectasis with (acute) exacerbation (principal); J96.11 Chronic respiratory failure with hypoxia; R64 Cachexia; E88.01 Alpha-1-antitrypsin deficiency; J96.12 Chronic respiratory failure with hypercapnia; Z99.81 Dependence on supplemental oxygen; Z68.1 Body mass index [BMI] 19.9 or less, adult; J43.9 Emphysema, unspecified; F41.9 Anxiety disorder, unspecified; B96.6 Bacteroides fragilis [B. fragilis] as the cause of diseases classified elsewhere; Z79.899 Other long term (current) drug therapy; Z88.0 Allergy status to penicillin; Z88.8 Allergy status to other drugs, medicaments and biological substances

== ENCOUNTER → 2018-10-27 | Outpatient (REF) | payer BC, MEDICARE ==
[~2018-10-27] MED LIST changes: +ALPR0.25 PO; +RISATAB3 PO; +VENTAER INH
[2018-10-27 13:28] LABS: BASO # 0.1 10^3/uL (0.0-0.2); BASO % 1.2 % (0.0-1.0); EOS # 0.2 10^3/uL (0.0-0.50); EOS % 2.7 % (0.0-3.0); HEMATOCRIT 38.6 % (36.0-47.0); HEMOGLOBIN 11.7 g/dl (12.0-15.5); LYMPH # 1.3 10^3/uL (1.5-4.5); LYMPH % 17.5 % (24.0-44.0); MEAN CORPUSCULAR HEMOGLOBIN 28.1 pg (27.0-33.0); MEAN CORPUSCULAR HGB CONC 30.3 g/dl (32.0-36.5); MEAN CORPUSCULAR VOLUME 92.8 fl (80.0-96.0); MONO # 0.7 10^3/uL (0.0-0.8); MONO % 9.3 % (0.0-5.0); NEUTROPHILS # 5.3 10^3/uL (1.8-7.7); PLATELET COUNT, AUTOMATED 215 10^3/uL (150-450); RED BLOOD COUNT 4.16 10^6/uL (4.00-5.40); WHITE BLOOD COUNT 7.6 10^3/uL (4.0-10.0)
[2018-10-27 13:53] LABS: ALBUMIN 3.5 GM/DL (3.2-5.2); ALT/SGPT 26 U/L (12-78); BILIRUBIN,TOTAL 0.2 MG/DL (0.2-1.0); BLOOD UREA NITROGEN 12 MG/DL (7-18); C REACTIVE PROTEIN QUANTITATIV < 0.30 MG/DL (0.00-0.30); CALCIUM LEVEL 8.3 MG/DL (8.5-10.1); CARBON DIOXIDE LEVEL 34 MEQ/L (21-32); CHLORIDE LEVEL 100 MEQ/L (98-107); CREATININE FOR GFR 0.38 MG/DL (0.55-1.30); GLOMERULAR FILTRATION RATE > 60.0 (>51); GLUCOSE, FASTING 78 MG/DL (70-100); POTASSIUM SERUM 3.6 MEQ/L (3.5-5.1); SODIUM LEVEL 140 MEQ/L (136-145); TOTAL PROTEIN 6.6 GM/DL (6.4-8.2)
[2018-10-27 14:04] LABS: ERYTHROCYTE SEDIMENTATION RATE 26 mm/hr (0-30)
== END ==
LOC: M SHH 12:32
PROVIDERS: ATTEND Internal Medicine Infectious Disease
DX: J16.8 Pneumonia due to other specified infectious organisms (principal)

== ENCOUNTER → 2018-11-03 | Outpatient (REF) | payer BC, MEDICARE ==
[2018-11-03 12:12] LABS: BASO # 0.2 10^3/uL (0.0-0.2); BASO % 1.3 % (0.0-1.0); EOS # 0.4 10^3/uL (0.0-0.50); EOS % 3.2 % (0.0-3.0); HEMATOCRIT 40.2 % (36.0-47.0); HEMOGLOBIN 12.4 g/dl (12.0-15.5); LYMPH # 1.3 10^3/uL (1.5-4.5); LYMPH % 11.3 % (24.0-44.0); MEAN CORPUSCULAR HEMOGLOBIN 28.3 pg (27.0-33.0); MEAN CORPUSCULAR HGB CONC 30.8 g/dl (32.0-36.5); MEAN CORPUSCULAR VOLUME 91.8 fl (80.0-96.0); NEUTROPHILS # 8.4 10^3/uL (1.8-7.7); NEUTROPHILS % 74.8 % (36.0-66.0); PLATELET COUNT, AUTOMATED 236 10^3/uL (150-450); RED BLOOD COUNT 4.38 10^6/uL (4.00-5.40); WHITE BLOOD COUNT 11.3 10^3/uL (4.0-10.0)
[2018-11-03 12:39] LABS: ALBUMIN 3.4 GM/DL (3.2-5.2); ALT/SGPT 24 U/L (12-78); BILIRUBIN,TOTAL 0.2 MG/DL (0.2-1.0); BLOOD UREA NITROGEN 20 MG/DL (7-18); C REACTIVE PROTEIN QUANTITATIV 0.52 MG/DL (0.00-0.30); CALCIUM LEVEL 8.7 MG/DL (8.5-10.1); CARBON DIOXIDE LEVEL 35 MEQ/L (21-32); CHLORIDE LEVEL 98 MEQ/L (98-107); CREATININE FOR GFR 0.44 MG/DL (0.55-1.30); ERYTHROCYTE SEDIMENTATION RATE 26 mm/hr (0-30); GLOMERULAR FILTRATION RATE > 60.0 (>51); GLUCOSE, FASTING 81 MG/DL (70-100); POTASSIUM SERUM 3.5 MEQ/L (3.5-5.1); SODIUM LEVEL 141 MEQ/L (136-145); TOTAL PROTEIN 6.9 GM/DL (6.4-8.2)
== END ==
LOC: M SHH 11:43
PROVIDERS: ATTEND Internal Medicine Infectious Disease
DX: J16.8 Pneumonia due to other specified infectious organisms (principal); E43 Unspecified severe protein-calorie malnutrition; Q31.9 Congenital malformation of larynx, unspecified; J69.8 Pneumonitis due to inhalation of other solids and liquids; R13.10 Dysphagia, unspecified

== ENCOUNTER → 2018-11-07 | Outpatient (REF) | payer BC, MEDICARE ==
[~2018-11-07] MED LIST changes: +BACITAB PO; +PRED10PA PO
== END ==
LOC: M SFHCPLAZ 11:02
PROVIDERS: ATTEND Internal Medicine Infectious Disease
DX: J15.6 Pneumonia due to other Gram-negative bacteria (principal)

== ENCOUNTER → 2018-11-17 | Outpatient (REF) | payer BC, MEDICARE ==
[~2018-11-17] MED LIST changes: -BACITAB PO; -PRED10PA PO
[2018-11-17 13:54] LABS: ALBUMIN 3.2 GM/DL (3.2-5.2); ALT/SGPT 155 U/L (12-78); BILIRUBIN,TOTAL 0.2 MG/DL (0.2-1.0); BLOOD UREA NITROGEN 19 MG/DL (7-18); C REACTIVE PROTEIN QUANTITATIV 1.25 MG/DL (0.00-0.30); CALCIUM LEVEL 8.7 MG/DL (8.5-10.1); CARBON DIOXIDE LEVEL 36 MEQ/L (21-32); CHLORIDE LEVEL 97 MEQ/L (98-107); CREATININE FOR GFR 0.42 MG/DL (0.55-1.30); GLOMERULAR FILTRATION RATE > 60.0 (>51); GLUCOSE, FASTING 80 MG/DL (70-100); POTASSIUM SERUM 3.4 MEQ/L (3.5-5.1); SODIUM LEVEL 141 MEQ/L (136-145); TOTAL PROTEIN 6.6 GM/DL (6.4-8.2)
[2018-11-17 14:01] LABS: BASO # 0.1 10^3/uL (0.0-0.2); EOS # 0.4 10^3/uL (0.0-0.5); HEMATOCRIT 41.8 % (36.0-47.0); HEMOGLOBIN 12.9 g/dl (12.0-15.5); LYMPH # 0.9 10^3/uL (1.5-5.0); MEAN CORPUSCULAR HEMOGLOBIN 28.8 pg (27.0-33.0); MEAN CORPUSCULAR HGB CONC 30.9 g/dl (32.0-36.5); MEAN CORPUSCULAR VOLUME 93.3 fl (80.0-96.0); MONO # 0.9 10^3/uL (0.0-0.8); MONO % 12.9 % (0.0-5.0); NEUTROPHILS # 4.7 10^3/uL (1.5-8.5); NEUTROPHILS % 66.8 % (36.0-66.0); PLATELET COUNT, AUTOMATED 191 10^3/uL (150-450); RED BLOOD COUNT 4.48 10^6/uL (4.00-5.40); WHITE BLOOD COUNT 7.1 10^3/uL (4.0-10.0)
[2018-11-17 15:03] LABS: ERYTHROCYTE SEDIMENTATION RATE 13 mm/hr (0-30)
== END ==
LOC: M SHH 11:53
PROVIDERS: ATTEND Internal Medicine Infectious Disease
DX: J16.8 Pneumonia due to other specified infectious organisms (principal)

== ENCOUNTER → 2018-12-01 | Outpatient (REF) | payer BC, MEDICARE ==
[~2018-12-01] MED LIST changes: +BACITAB PO
== END ==
LOC: M SFHCPLAZ 18:17
PROVIDERS: ATTEND Internal Medicine Infectious Disease
DX: R64 Cachexia (principal)

== ENCOUNTER → 2018-12-03 | Outpatient (REF) | payer BC, MEDICARE | LOC: M SFHCPLAZ 17:49 | PROVIDERS: ATTEND Internal Medicine Infectious Disease | DX: R64 Cachexia (principal) ==

== ENCOUNTER 2018-12-04 09:30 | Inpatient (IN) | payer BC, MEDICARE ==
[~2018-12-04] VITALS: Ht 167.6 cm; Wt 43.5 kg
[2018-12-04] VITALS (10 sets, daily range): BP systolic 114–123; BP diastolic 62–78
[~2018-12-04 09:30] MED LIST changes: -BACITAB PO
[2018-12-04] MEDS ORDERED: ALBUTEROL SULFATE 2.5 MG/0.5 ML INH NEB SOLN INH PRN (10:30)
[2018-12-04 11:49] LABS: ALBUMIN 2.9 GM/DL (3.2-5.2); ALT/SGPT 75 U/L (12-78); BILIRUBIN,TOTAL 0.6 MG/DL (0.2-1.0); BLOOD UREA NITROGEN 13 MG/DL (7-18); CALCIUM LEVEL 8.7 MG/DL (8.5-10.1); CARBON DIOXIDE LEVEL 38 MEQ/L (21-32); CHLORIDE LEVEL 94 MEQ/L (98-107); CREATININE FOR GFR 0.32 MG/DL (0.55-1.30); GLOMERULAR FILTRATION RATE > 60.0 (>51); GLUCOSE, FASTING 90 MG/DL (70-100); POTASSIUM SERUM 3.2 MEQ/L (3.5-5.1); SODIUM LEVEL 139 MEQ/L (136-145); TOTAL PROTEIN 6.8 GM/DL (6.4-8.2)
--- NOTE | 2018-12-04 11:59 | REP ---
Chest x-ray: Two views. History: Fever and hypoxemia, shortness of breath. There is a history of emphysema, alpha 1 antitrypsin deficiency, and chronic bronchiectasis. Comparison study October 20, 2018. Findings: Marked hyperinflation is again seen with a lower lobe predominant emphysematous hyper lucent/oligohemic pattern which is unchanged. Increased markings are seen chronically in the upper lobe distribution bilaterally. No acute infiltrate is appreciated. Heart is not enlarged. The aorta somewhat tortuous. There is an old healed sternal fracture seen. Impression: Advanced emphysematous changes as described above. Chronically increased markings in the upper lobes. Unchanged. No acute infiltrate seen. Electronically Signed by Ramone Paredes MD 12/04/2018 12:50 P
[2018-12-04] MEDS ORDERED: IPRATROPIUM 0.5MG/ALBUTEROL 2.5MG INH SOL UD 3ML (DUONEB)(J7620) INH SCH (12:00)
[2018-12-04] MEDS ORDERED: BACITAB PO (12:00)
[2018-12-04] MEDS: MEROPENEM INJ 1 GM in IV 1 EA IV SCH ×2 (12:23→20:47)
[2018-12-04] MEDS ORDERED: PASSION FLOWER PO PRN (13:45)
[2018-12-04] MEDS: ACETAMINOPHEN TAB 650MG DOSE (2X325MG) PO PRN (13:59)
[2018-12-04] MEDS: predniSONE 10 MG TAB PO SCH (13:59)
[2018-12-04] MEDS: LACTOBACILLUS ACIDOPHILUS CAP (BACID) PO SCH (14:03)
[2018-12-04] MEDS: MULTIVITAMINS/MINERALS THERAP 1 TAB PO SCH (14:03)
[2018-12-04 14:57] LABS: ABG BASE EXCESS 9.4 (-2.0-2.0); ABG HCO3 37.9 MEQ/L (22.0-26.0); ABG O2 SATURATION 95.5 % (95.0-99.0); ABG PARTIAL PRESSURE O2 80.7 mmHg (75.0-100.0); ABG STANDARD HCO3 33.1 MEQ/L (22.0-26.0); ABG TOTAL CO2 40.1 MEQ/L (22.0-29.0); ABG pH (ARTERIAL) 7.338 UNITS (7.350-7.450)
[2018-12-04 15:00] LABS: ABG PARTIAL PRESSURE CO2 72.2 mmHg (35.0-45.0)
[2018-12-04] MEDS ORDERED: POTASSIUM CHLORIDE 10 MEQ SR TABLET PO ONE (15:00)
[2018-12-04 15:17] LABS: HEMATOCRIT 39.2 % (36.0-47.0); HEMOGLOBIN 12.1 g/dl (12.0-15.5); MEAN CORPUSCULAR HEMOGLOBIN 28.5 pg (27.0-33.0); MEAN CORPUSCULAR HGB CONC 30.9 g/dl (32.0-36.5); MEAN CORPUSCULAR VOLUME 92.2 fl (80.0-96.0); PLATELET COUNT, AUTOMATED 247 10^3/uL (150-450); RED BLOOD COUNT 4.25 10^6/uL (4.00-5.40); WHITE BLOOD COUNT 10.9 10^3/uL (4.0-10.0)
[2018-12-04] MEDS: LEVALBUTEROL 1.25 MG/0.5 ML CONCENTRATE NEB INH SCH ×2 (16:19→20:41)
--- NOTE | 2018-12-04 16:54 | HPEPDOC ---
General Date of Admission Dec 04, 2018 at 10:38 Date of Service: Dec 04, 2018 Attending Physician: LEA ARMANDO MD Chief Complaint The patient is a 53-year-old female admitted with a reason for visit of Pneumonia,Fever. Source: Patient, Other (Dr. Schneider who was seeing the patient outpatient and recommended direct admission) Exam Limitations: No limitations Timing/Duration: Day(s) Severity: Moderate Associated Symptoms: Cough, Fever, Chills, Loss of appetite, Malaise, Rash, Shortness of breath History of Present Illness Ms. Berman is a pleasant 53 yo woman with a history of severe underlying emphysema with chronic broncheactasis, with a genetic variant of alpha 1 antitrypsin deficiency who follows with Dr. 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 Schneider's recommendation from clinic after being seen in clinic where she had a fever to 101, had worsening hypoxemia to mid 80s on baseline 2L and increased to 4L, with noted increased productive cough of thick brown non bloody sputum, congestion in the setting of recently visiting with her grand daughter who had a cold 5 days ago. On exam in clinic she was noted to have a hoarse voice as well as a confluent truncal macular non pruritic rash that developed 3 days ago. Given her complicated pulmonary history, Dr. Schneider decided to refer her for evaluation and treatment of likely pneumonia. Home Medications Scheduled Acetylcysteine (Nac) 600 Mg Capsule, 600 MG PO BID, (Reported) Cetirizine HCl (Cetirizine HCl) 10 Mg Tablet, 10 MG PO QHS, (Reported) Fluticasone/Vilanterol (Breo Ellipta 200-25 Mcg INH) 1 Inh Inh, 1 PUFF INH DAILY, (Reported) L.acidoph/L.bulg/B.bif/S.therm (Bacid Caplet) 1 Each Tablet, 1 TAB PO DAILY, (Reported) Magnesium Oxide (Magnesium) 400 Mg Capsule, 400 MG PO QHS, (Reported) Multivitamin (Multivitamins) 1 Each Capsule, 1 CAP PO DAILY, (Reported) TAKES AT NOON Theophylline Anhydrous (Theophylline Anhydrous) 300 Mg Tab.er.12h, 300 MG PO QPM, (Reported) TAKES AT 1500 Theophylline Anhydrous (Theophylline Anhydrous) 450 Mg Tab.er.12h, 450 MG PO Q AM, (Reported) Umeclidinium Brokaw (Incruse Ellipta) 62.5 Mcg Blst.w.dev, 1 PUFF INH DAILY, (Reported) [L-Theanine] , 200 MG PO QHS, (Reported) [Nettle Gleason] , 500 MG PO QHS, (Reported) Scheduled PRN Acetaminophen (Acetaminophen) 325 Mg Tablet, 650 MG PO QID PRN for PAIN, (Reported) Albuterol Sulfate (Ventolin Hfa) 18 Gm Hfa.aer.ad, 2 PUFF INH Q4H PRN for SHORTNESS OF BREATH, (Reported) Alprazolam (Alprazolam) 0.25 Mg Tablet, 0.25 MG PO BID PRN for ANXIETY, (Reported) Guaifenesin (Mucinex) 600 Mg Tab.er.12h, 600 MG PO BID PRN for COUGH, (Reported) Ibuprofen (Ibuprofen) 600 Mg Tablet, 600 MG PO TID PRN for PAIN, (Reported) Levalbuterol HCl (Levalbuterol HCl) 0.63 Mg/3 Ml Vial.neb, 0.63 MG INH TID PRN for SHORTNESS OF BREATH, (Reported) [Passion Flower] , 1 TAB PO DAILY PRN for ANXIETY, (Reported) Allergies Coded Allergies: Cephalosporins (Verified Allergy, Intermediate, hives, 10/20/18) azithromycin (Verified Allergy, Mild, RASH, 10/20/18) Penicillins (Verified Allergy, Unknown, 07/29/18) gluten (Verified Allergy, Unknown, 07/29/18) soy (Verified Allergy, Unknown, 07/29/18) mirtazapine (Verified Adverse Reaction, Unknown, HOOKER, 10/20/18) Past Medical History Medical History 1. Severe underlying emphysema with chronic broncheactasis 2. Has a genetic variant of alpha 1 antitrypsin deficiency 3. Has a gastrointestinal stromal tumor 4. history of MRSA and recent history of Achromobacter PNA 5. Severe osteopenia 6. chronic hypoxemic and hypercapnic respiratory failure Family History Significant Family History: Other (son has cystic fibrosis) Father: at 69. He had a history of coronary disease with an myocardial infarction ([place]), type 2 diabetes, had esophageal and gastric cancer and hypertension. Mother: had hyperlipidemia, hypothyroidism, and hypertension. Sister: has hypothyroidism Brother: has depression. Son: has cystic fibrosis. Social History * Smoker: Denies Alcohol: Denies Drugs: denies A-FIB/CHADSVASC A-FIB History Current/History of A-Fib/PAF?: No Current PO Anticoag Therapy: No Age/Risk Factor Scoring CHADSVASC: CHADSVASC Response (Comments) Value Age Risk Factor Age < 65 years old 0 Gender Risk Factor Female 1 Hx of CHF No 0 Hx of HTN No 0 Hx of Stroke/TIA/or VTE No 0 Hx of Diabetes No 0 Hx of Vascular Disease No 0 Total 1 Treatment Treatment ordered: NONE Reason Anticoagulant not given: Not indicated/[id number] Review of Systems Constitutional: Reports: Chills, Fever, Malaise, Weakness, Fatigue; Denies: Night Sweats, Weight Loss, Lethargy Eyes: Denies: Pain, Vision change, Conjunctivae inflammation, Eyelid inflammation, Redness, Other ENT: Reports: Sinus Congestion, Post Nasal Drip; Denies: Head Aches, Ear Pain, Dysphagia, Sore Throat, Epistaxis, Other Symptoms Skin: Reports: Rash; Denies: Lesions, Jaundice, Bruising, Itching, Dry, Breakdown, Nail Changes, Other Pulmonary: Reports: Dyspnea, Cough, Pleuritic Chest Pain, Other Symptoms (occasional wheezing) Cardiovascular: Denies: Chest Pain, Palpitations, Orthopnea, Paroxysmal Noc. Dyspnea, Edema, Lt Headedness Gastrointestinal: Denies: Nausea, Vomiting, Abdominal Pain, Diarrhea, Constipation, Melena, Hematochezia Genitourinary: Denies: Dysuria, Frequency, Incontinence, Hematuria, Retention Hematologic: Denies: Bruising, Bleeding Excessively, Petecchia, Purpura, Enlarged Lymph Nodes Endocrine: Denies: Polydipsia, Polyphagia, Polyuria, Heat Intolerance, Cold Intolerance Musculoskeletal: Denies: Neck Pain, Back Pain, Shoulder Pain, Arm Pain, Hand Pain, Leg Pain, Foot Pain, Joint Pain, Muscle Pain Neurological: Reports: Weakness; Denies: Numbness, Incoordination, Change in speech, Confusion, Seizures Psych: Reports: Mood Normal; Denies: Anxiety, Depression, Thoughts of Self Harm, Thoughts of Harming Other Physical Examination General Exam: Positive: Alert, Cooperative, Mild Distress, Other (cachectic and chronically ill appearing); Negative: No Acute Distress Eye Exam: Positive: PERRLA (injected conjunctiva), EOMI; Negative: Sclera icteric ENT Exam: Positive: Atraumatic, Mucous membr. moist/pink, Pharynx Normal (mildly injected posterior oropharynx with no exudates) Neck Exam: Positive: Supple; Negative: JVD, thyromegaly, Lymphadenopathy Chest Exam: Positive: Rales (scattered rare crackles throughout both posterior lung kramer), Diminished; Negative: Rhonchi, Wheezing Heart Exam: Positive: Rate Normal, Regular Rhythm, Normal S1, Normal S2; Negative: Gallops, Murmurs, Rubs Abdomen Exam: Positive: Normal bowel sounds, Soft, Other (scaphoid); Negative: Tenderness, Hepatospenomegaly Extremity Exam: Positive: Normal pulses; Negative: Clubbing, Cyanosis, Edema, Tenderness, Swelling Skin Exam: Positive: Rash (flat confluent macular rash across abdomen, reportedly developed 3 days ago, and often gets it with illness) Neuro Exam: Positive: Normal Gait, Normal Speech, Strength at 5/5 X4 ext, Sensation Intact, Cranial Nerves 3-12 NL Psych Exam: Positive: Mental status NL, Mood NL, Oriented x 3 Vital Signs Laboratory Tests 12/04/18 11:12: Blood Urea Nitrogen 13, Creatinine 0.32L, Sodium Level 139, Potassium Level 3.2L, Chloride Level 94L, Carbon Dioxide Level 38H, Calcium Level 8.7, Aspartate Amino Transf (AST/SGOT) 28, Alanine Aminotransferase (ALT/SGPT) 75, Alkaline Phosphatase 137H, Total Bilirubin 0.6, Total Protein 6.8, Albumin 2.9L, Anion Gap 7L, Glomerular Filtration Rate > 60.0, Fasting Glucose 90, Albumin/Globulin Ratio 0.74L 12/04/18 11:17: Procalcitonin [Pending] Assessment/Plan 53 yo woman with a history of severe underlying emphysema with chronic broncheactasis, with a genetic variant of alpha 1 antitrypsin deficiency who follows with Dr. Page in pulmonology with ongoing evaluation for transplant, not yet listed, at [facility], a remote history of a GIST tumor s/p s urgery and brief imatinib, chronic hypoxemic hypercarbic respiratory failure usually well compensated at CO2 in low 50s, and a recent history of Achromobacter PNA s/p 1m of zosyn after which she was much improved on baseline home 2-3L for 6 days, who now presents for direct admission from ID clinic with fever and worsening hypoxemia, reporting a productive cough of thick sputum, co ngestion and cough in the setting of recently visiting with her a sick grand daughter, consistent with a viral URI with a superimposed bacterial pneumonia c/b worsening hypercarbia current CO2 ~70s and will transfer to the ICU for BiPAP with the rest of the treatment plan as below. Plan: Hypoxemic hypercarbic respiratory failure 2/2 ongoing URI and presumed superimposed bacterial pneumonia, on chronic hypoxemic hypercarbic respiratory failure. -After speaking with Dr. Schneider started on meropenem given significant prior microbial history. 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 Page who agreed that they may not be much added utility in [place] at this time, and will consult pulm as she is being moved to ICU for BiPAP given CO2 is currently 70s from baseline 50s -Will transfer to ICU for supportive BiPAP as she is pursing and mildly labored though mentating well, will start at 12/5 @ 40% and repeat ABG at 5.30PM -Spoke with Dr. Stafford who is onboard with the plan and pulmonary will follow -resume her home Mucomyst, theophylline, Incruse Ellipta and Breo Ellipta. -continue home Lactobacillus to prevent Clostridium (C.) difficile. -Infectious diseases consulted and aware of admission as she recommended it -Incentive spirometer Sepsis: -Presented septoid with fever/tachycardia/pulmonary source: started on meropenem. -Q4H vitals -start fluids at 100cc/hr, is hemodynamically stable with no evidence of acute end organ damage -CXR without new benjy opacities -check UA -f/u SCx and BCx Cachexia: -Nutrition consult Anxiety: -Continue home dose of Xanax as needed. Allergic rhinitis: -Continue cetirizine Diet: Regular, can take off BiPAP to nasal canula for eating, and to keep off for 30 minutes after PO. DVT prophylaxis: TEDS and SCDs. Declined lovenox as she reports having been instructed by her outpatient provider after a bleeding incident Plan / VTE VTE Prophylaxis Ordered?: Yes VTE Exclusion Pharmacological: Patient/Family Refusal Plan Diet: Continue Current, Supplement Activity: Continue Current Therapy: PT, OT LEA ARMANDO MD Dec 04, 2018 10:53
[2018-12-04] MEDS: NS 1,000 ML IV SCH (17:19)
[2018-12-04 17:37] LABS: ABG BASE EXCESS 6.5 (-2.0-2.0); ABG PARTIAL PRESSURE O2 109.4 mmHg (75.0-100.0); ABG STANDARD HCO3 30.4 MEQ/L (22.0-26.0); ABG TOTAL CO2 37.2 MEQ/L (22.0-29.0); ABG pH (ARTERIAL) 7.313 UNITS (7.350-7.450)
[2018-12-04 17:42] LABS: ABG PARTIAL PRESSURE CO2 70.7 mmHg (35.0-45.0)
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
[2018-12-04] MEDS: ACETYLCYSTEINE 20% 4 ML VIAL (200MG/ML) INH SCH (20:41)
[2018-12-04] MEDS: CETIRIZINE (ZyrTEC) 10 MG TAB PO SCH (20:46)
[2018-12-04] MEDS: MAGNESIUM OXIDE 400 MG TAB (MAG-OX) PO SCH (20:46)
[2018-12-04] MEDS ORDERED: NETTLE LEAF PO SCH (21:00)
[2018-12-04] MEDS ORDERED: THEANINE PO SCH (21:00)
[2018-12-04] MEDS ORDERED: ENTER DRUG NAME HERE (PATIENT'S OWN MED) PO SCH (21:00)
[2018-12-05] VITALS (23 sets, daily range): BP systolic 98–154; BP diastolic 56–75; O2SAT 95
[2018-12-05] MEDS: LEVALBUTEROL 1.25 MG/0.5 ML CONCENTRATE NEB INH SCH ×7 (01:40→23:53)
[2018-12-05] MEDS: NS 1,000 ML IV SCH (02:57)
[2018-12-05] MEDS: MEROPENEM INJ 1 GM in IV 1 EA IV SCH ×3 (04:30→19:57)
[2018-12-05 05:10] LABS: HEMATOCRIT 36.2 % (36.0-47.0); MEAN CORPUSCULAR HEMOGLOBIN 27.5 pg (27.0-33.0); MEAN CORPUSCULAR HGB CONC 30.4 g/dl (32.0-36.5); MEAN CORPUSCULAR VOLUME 90.5 fl (80.0-96.0); PLATELET COUNT, AUTOMATED 260 10^3/uL (150-450); WHITE BLOOD COUNT 7.7 10^3/uL (4.0-10.0)
[2018-12-05 05:30] LABS: BLOOD UREA NITROGEN 10 MG/DL (7-18); CALCIUM LEVEL 8.6 MG/DL (8.5-10.1); CARBON DIOXIDE LEVEL 38 MEQ/L (21-32); CHLORIDE LEVEL 102 MEQ/L (98-107); CREATININE FOR GFR 0.31 MG/DL (0.55-1.30); GLOMERULAR FILTRATION RATE > 60.0 (>51); GLUCOSE, FASTING 85 MG/DL (70-100); MAGNESIUM LEVEL 2.1 MG/DL (1.8-2.4); POTASSIUM SERUM 3.7 MEQ/L (3.5-5.1); SODIUM LEVEL 143 MEQ/L (136-145)
[2018-12-05] MEDS: ACETYLCYSTEINE 20% 4 ML VIAL (200MG/ML) INH SCH ×2 (07:58→20:55)
[2018-12-05] MEDS: predniSONE 10 MG TAB PO SCH (08:08)
[2018-12-05] MEDS: MULTIVITAMINS/MINERALS THERAP 1 TAB PO SCH (08:08)
[2018-12-05] MEDS ORDERED: ENOXAPARIN 40 MG/0.4 ML SYRINGE (J1650) SC SCH (09:00)
[2018-12-05] MEDS: LACTOBACILLUS ACIDOPHILUS CAP (BACID) PO SCH (09:09)
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
[2018-12-05] MEDS: THEOPHYLLINE PO SCH (09:49)
--- NOTE | 2018-12-05 10:29 | CR ---
DATE OF CONSULTATION: 12/05/2018 REASON FOR CONSULTATION: I was asked by Dr. Leon for followup on bronchiectasis exacerbation with respiratory failure and fever. HISTORY OF PRESENT ILLNESS: Mrs. Berman is a pleasant 53-year-old female with severe underlying emphysema, chronic bronchiectasis and genetic variant of alpha-1 antitrypsin deficiency who came to my office yesterday complaining of increasing shortness of breath, fever up to 102, associated with a rash and worsening cough. She described her cough as being yellow thick in color. She denied any hemoptysis. She has worsening shortness of breath over the past 3 days. She was exposed to her granddaughter who had a fever and a viral illness last week. The rash was slightly pleuritic. In the office the patient was in respiratory distress and discomfort. She has no appetite and I recommended she gets admitted. She did not want to go to the emergency room, and therefore she had a direct admission to the hospital. The hospitalist felt the need to admit her to the ICU due to respiratory failure needing on BiPAP and her pCO2 was 70. She was started on IV meropenem and feeling slightly better today. Her past medical history is significant severe emphysema with chronic bronchiectasis. Genetic variant of alpha-1 antitrypsin deficiency, gastrointestinal stromal tumor status post resection, history of Methicillin-resistant Staphylococcus aureus (MRSA) colonization, Achromobacter pneumonia treated with four weeks of IV Zosyn. That was discontinued two weeks ago. Mild drug-induced hepatitis from Zosyn. Severe osteopenia. Chronic hypoxic and hypercapnic failure failure. Surgical history stomach surgery for excision of GIST tumor. MEDICATIONS: - Mucomyst 600 mg by mouth twice a day - cetirizine 10 mg by mouth at bedtime - Breo Ellipta 200/25 mcg inhaled daily - probiotics daily - mag oxide 400 mg by mouth at bedtime - multivitamin one tablet daily - theophylline 300 mg every 12 hours - INCRUSE Ellipta 62 mcg daily - IV meropenem 1 gram every 8 hours - ibuprofen 600 mg by mouth three times a day as needed - Xanax 0.25 mg by mouth twice a day as needed FAMILY HISTORY: Father at age 69, history of coronary artery disease (CAD), type 2 diabetes, esophageal tumor. Sister with hypothyroidism. Brother with depression. Son with cystic fibrosis. SOCIAL HISTORY: : She denied smoking, alcohol or drug use. She lives with her who is very supportive. PHYSICAL EXAMINATION: Temperature is 99.1, pulse 109, respirations 35, blood pressure 114/65, O2 sat 93% on FiO2 of 35%. Heart: Normal S1-S2 tachycardic. Lungs: Diminished airways bilaterally, few inspiratory crackles throughout, few expiratory wheezes in the upper lobes. Abdomen: Soft, emaciated, nontender. No hepatosplenomegaly. Healed midline scar. Extremities: No clubbing, cyanosis, or edema. Abdomen: Faint maculopapular rash. Oropharynx mild erythema of the pharynx with no purulent drainage. Neck is supple. No JVD. No bruits. No neck stiffness. Neurologic Exam: Alert and oriented times three. Motor strength generalized weakness but symmetric. LABS: White count was 10.9, hemoglobin 12.1, hematocrit 39.2, platelets 247, white count today was down to 7.7. Sodium 139, potassium 3.2 yesterday. Today sodium was 143, potassium 3.7, chloride 102, bicarb 38, BUN 10, creatinine 0.21, glucose 85, calcium 8.6, magnesium 2.1, procalcitonin is pending. ABG pH 7.3, pCO2 70, pO2 109, oxygen saturation 98%. Urine legionella antigen, pneumococcal antigen are pending. Respiratory panel was positive for rhinovirus. Sputum gram stain and culture from yesterday are pending. Blood cultures pending. IMAGING: Chest x-ray showed advanced emphysematous changes, chronic increased marking in the upper lobes. No acute infiltrate. IMPRESSION: : This is a 53-year-old unfortunate female with severe advanced COPD, chronic bronchiectasis, and lymphedema admitted with acute exacerbation, most likely of viral origin as it came very suddenly after exposure to her granddaughter who had a viral illness. The patient had positive PCR for rhinovirus. She most likely will grow some pathogen and probably Achromobacter again in her sputum and this may need a short course of IV antibiotics as well. I have recommended IV meropenem at this time. PLAN: Continue IV meropenem 1 gram q.8 h. I have tried to obtain Marinol to help her with appetite stimulation but that was denied by her insurance as an outpatient. I also tried to get prior authorization for colistin nebs to use every other month to decrease colonization with gram negative pathogens, but that was also denied and hopefully we could try that as an inpatient and try to get it authorized if gram negatives are again the problem. Agree with nebulized Mucomyst and Acapella as per Dr. Grant. The dietitian has been consulted for pulmonary cachexia and the patient is using Ensure. MTDD
[2018-12-05] MEDS: BREO ELLIPTA INH SCH (11:17)
[2018-12-05] MEDS: INCRUSE ELLIPTA 62.5MCG (PATIENT'S OWN MED) INH SCH (11:17)
[2018-12-05] MEDS: guaiFENesin ER 600 MG TAB PO PRN ×2 (11:40→19:57)
[2018-12-05] MEDS: ALPRAZolam 0.25 MG TAB PO PRN ×2 (11:46→19:57)
--- NOTE | 2018-12-05 12:46 | CCN ---
DATE: 12/05/2018 The patient was seen and examined this morning during rounds. The patient reports some of her shortness of breath has improved. She was on bilevel positive airway pressure (BiPAP) overnight and she does feel that this has helped with her work of breathing and she finds that it has been working better than the continuous positive airway pressure (CPAP) which she was on previously at home. She was also using Mucomyst with her Xopenex treatments and she did feel that it helped with loosening of her mucus. She continues to have a productive cough. Has not had any fevers overnight. No abdominal pain. No nausea or vomiting. Denies any increased lower extremity edema. PHYSICAL EXAM: Vital signs: Temperature 98.4, pulse is 105, respirations 27, blood pressure is 116/63, and oxygen saturation is 97% on 35% FiO2. Ins 1.6 liters, out 1.4 liters, positive 195 mL. General: The patient is a thin female, awake and alert and oriented, using some accessory muscles for respirations but able to speak in mostly complete sentences. HEENT: Normocephalic, atraumatic. Some cachexia noted. Moist mucous membranes. Pupils equal and reactive to light. Neck is supple. No palpable adenopathy or jugular venous distention jugular venous distention (JVD). Cardiovascular: Tachycardic, regular rate and rhythm. Normal S1, S2. Distant heart sounds. No murmurs appreciated. Respiratory: Decreased breath sounds bilaterally with some rhonchi and crackles. Improvement in the squeaks. Some faint wheezes still. There is more decreased breath sounds noted in the lower lung kramer compared to the upper. Abdomen is soft, nontender, nondistended. No palpable hepatomegaly. Extremities: There is no lower extremity noted bilaterally. LABS: WBC 7.7, hemoglobin 11.0, platelet 200. Chemistry: Sodium 143, potassium 3.7, chloride 102, bicarbonate 38, BUN 10, creatinine 0.31, glucose is 85. Theophylline level was 14. MICRO: Sputum cultures still pending. Respiratory panel was positive for human rhinovirus/enterovirus. ASSESSMENT AND PLAN: Ms. Berman is a 53-year female with history of chronic obstructive pulmonary disease (COPD), bronchiectasis, emphysema in the lower lobes predominately chronic hypoxemic and hypercarbic respiratory failure on nasal cannula oxygen supplementation and CPAP with a history of sputum positive for Achromobacter since July of 2018 status post multiple courses of antibiotics as an outpatient as well as more recently being on IV Zosyn for a 4 week course via a peripherally inserted central catheter (PICC) line. The patient has been followed by Infectious Disease (ID). She was seen in their clinic recently with increasing shortness of breath, hypoxia while on her usual 2 liters nasal cannula and increased respiratory distress. She had also reported increasing cough productive of yellow to brown mucus for the past few days. The patient did report a previous sick contact with her granddaughter who had a cold. Initially on presentation the patient's arterial blood gas (ABG) shows chronic hypercarbic respiratory failure. Her pCO2 appeared to be close to her baseline. However, she did have significant work of breathing and so she was placed on BiPAP for the work of breathing. She does feel her shortness of breath has improved. However, she does continue to be using some accessory muscles and continues to have some tachypnea. Acute COPD/bronchiectasis exacerbation with acute on chronic hypoxemic respiratory failure and chronic hypercarbic respiratory failure. Respiratory syncytial virus (RSV) was positive. Her acute exacerbation is likely secondary to a viral illness. The patient does have a history of sputum positive for Achromobacter but she has completed a 4 week course of Zosyn recently. Suspect she may have some colonization as well at this point. - patient's last CT chest in 10/2018 showed chronic emphysematous changes with panacinar severe emphysema in lower lobes more than in upper lobes with chronic broncheictasis. The previous nodules and opacities seen on her prior CT in July have resolved except for a nodule in the superior segment of her left lower lobe which had increased in size. Therefore would repeat a CT chest for monitoring of nodule once patient has improved more in her respiratory status. - Appreciate ID consult. Will continue with meropenem for now and followup her procalcitonin. - Will follow up the results of her sputum culture and if positive for Achromobacter would consider treating the patient with nebulized antibiotics such as colistin. Suspect she likely will have some colonization. - Would wean the patient off BiPAP to nasal cannula oxygen during the day and use her BiPAP with naps or at night or when she has increased work of breathing. Continue the patient with BiPAP at settings of 14/6 and will titrate down her FiO2 to 30%. The patient may benefit from BiPAP after discharge as she reports she has been having worsening sleep symptoms despite using her CPAP at night regularly. - Continue with pulmonary toilet with Mucomyst and Xopenex nebulizers with an Acapella device. The patient may also require use of percussion vest if she is having difficulty with mucus clearance. She does have a percussion vest at home if she needs to use it. - Continue with Incruse and Xopenex nebulizers. - will increase prednisone to 40mg po daily - Continue with theophylline. Her theophylline level today is therapeutic. - Followup results of her blood cultures and urine Legionella strep pneumonia. - Continue with nutritional supplementation given her pulmonary cachexia and malnourishment. - Would discontinue IV fluids if the patient is tolerating oral intake and being able to be off of BiPAP more today. DVT prophylaxis. Thromboembolic deterrent (ESTELA) and sequential compressive devices (SCDs). FULL CODE. MTDD
[2018-12-05 13:43] LABS: ABG BASE EXCESS 7.7 (-2.0-2.0); ABG O2 SATURATION 97.8 % (95.0-99.0); ABG PARTIAL PRESSURE O2 104.4 mmHg (75.0-100.0); ABG STANDARD HCO3 31.6 MEQ/L (22.0-26.0); ABG TOTAL CO2 38.1 MEQ/L (22.0-29.0); ABG pH (ARTERIAL) 7.333 UNITS (7.350-7.450)
[2018-12-05 13:45] LABS: ABG PARTIAL PRESSURE CO2 69.3 mmHg (35.0-45.0)
[2018-12-05] MEDS: THEOPHYLLINE 300 MG PO SCH (15:15)
[2018-12-05] MEDS: IBUPROFEN 600 MG TAB PO PRN (15:35)
[2018-12-05] MEDS: ACETAMINOPHEN TAB 650MG DOSE (2X325MG) PO PRN (19:58)
[2018-12-05] MEDS: MAGNESIUM OXIDE 400 MG TAB (MAG-OX) PO SCH (20:02)
[2018-12-05] MEDS: CETIRIZINE (ZyrTEC) 10 MG TAB PO SCH (20:02)
[2018-12-06] VITALS (24 sets, daily range): BP systolic 103–132; BP diastolic 57–79; O2SAT 96–97
[2018-12-06] MEDS: MEROPENEM INJ 1 GM in IV 1 EA IV SCH ×3 (04:01→20:09)
[2018-12-06] MEDS: LEVALBUTEROL 1.25 MG/0.5 ML CONCENTRATE NEB INH SCH ×6 (04:15→23:24)
[2018-12-06 05:34] LABS: HEMATOCRIT 34.4 % (36.0-47.0); HEMOGLOBIN 10.5 g/dl (12.0-15.5); MEAN CORPUSCULAR HEMOGLOBIN 27.9 pg (27.0-33.0); MEAN CORPUSCULAR HGB CONC 30.5 g/dl (32.0-36.5); MEAN CORPUSCULAR VOLUME 91.2 fl (80.0-96.0); PLATELET COUNT, AUTOMATED 266 10^3/uL (150-450); RED BLOOD COUNT 3.77 10^6/uL (4.00-5.40); WHITE BLOOD COUNT 7.6 10^3/uL (4.0-10.0)
[2018-12-06 05:35] LABS: BLOOD UREA NITROGEN 9 MG/DL (7-18); CALCIUM LEVEL 8.8 MG/DL (8.5-10.1); CARBON DIOXIDE LEVEL 42 MEQ/L (21-32); CHLORIDE LEVEL 97 MEQ/L (98-107); CREATININE FOR GFR 0.29 MG/DL (0.55-1.30); GLOMERULAR FILTRATION RATE > 60.0 (>51); GLUCOSE, FASTING 80 MG/DL (70-100); POTASSIUM SERUM 3.6 MEQ/L (3.5-5.1); SODIUM LEVEL 141 MEQ/L (136-145)
--- NOTE | 2018-12-06 07:41 | IPNPDOC ---
Text Note Date of Service The patient was seen on 12/06/18. NOTE Subjective: -Reports some improvement in her breathing and mostly on nasal canula, now on 3L and using BiPAP for naps and sleep. -Seen by nutrition will have high calorie diet -Tolerating the increase in pred from 30 to 40mg Objective: Vitals: see below Physical Examination General Exam: Alert, Cooperative, NAD, cachectic and chronically ill appearing Eye Exam: PERRLA, EOMI, anicteric ENT Exam: Atraumatic, MMM, Pharynx Normal Neck Exam: Supple; Chest Exam: Scattered dry crackles throughout both posterior lung kramer, mild expiratory wheezing, otherwise moving air satisfactorily Heart Exam: Rate Normal, Regular Rhythm, Normal S1, Normal S2; no Gallops, Murmurs or Rubs Abdomen Exam: Scaphoid, Normal bowel sounds, Soft, no Tenderness or Hepatosplenomegaly Extremity Exam: Normal pulses; no Edema, Tenderness or Swelling Skin Exam: mildly improving flat confluent macular rash across abdomen Neuro Exam: Normal Speech, Strength at 5/5 X4 ext, Sensation Intact, Cranial Nerves 3-12 NL Psych Exam: Mental status NL, Mood NL, Oriented x 3 Assessment/Plan 53 yo woman with a history of severe underlying emphysema with chronic broncheactasis, with a genetic variant of alpha 1 antitrypsin deficiency (patient of Dr. 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 Plan: Hypoxemic hypercarbic respiratory failure 2/2 ongoing URI and presumed superim posed bacterial pneumonia, on chronic hypoxemic hypercarbic respiratory failure. -Continue meropenem given significant prior microbial history. -Increased steroid from pred 30 to 40 PO daily, tolerating well -Xopenex q4H nebs -follow up sputum culture --> gram stain with GPCs in pairs and GPRs -follow up blood culture -+Rhinovirus -follow up strep and legionella urine antigens -admission CXR without new opacities -Spoke with her drum sealer Dr. Page who agreed that they may not be much added utility in CT at this time -Pulm onboard, appreciate recs, in ICU for supportive BiPAP, now using for naps and QHS, at 14/6 @ 35% -continue home Mucomyst, theophylline, Incruse Ellipta, holding Breo Ellipta. -continue home Lactobacillus to prevent Clostridium (C.) difficile. -Infectious diseases consulted and aware of admission as she recommended it -Incentive spirometer Sepsis: -Presented septoid with fever/tachycardia/pulmonary source: started on meropenem --> resolved -Q8H vitals -CXR without new benjy opacities -negative UA -f/u SCx and BCx Cachexia: -Nutrition consult --> high caloric diet Anxiety: -Continue home dose of Xanax as needed. Allergic rhinitis: -Continue cetirizine Diet: Regular, can take off BiPAP to nasal canula for eating, and to keep off for 30 minutes after PO. DVT prophylaxis: TEDS and SCDs. Declined lovenox as she reports having been instructed by her outpatient provider after a bleeding incident. VS,Fishbone, I+O VS, Fishbone, I+O Laboratory Tests 12/06/18 04:52 Red Blood Count 3.77 L, Mean Corpuscular Volume 91.2, Mean Corpuscular Hemoglobin 27.9, Mean Corpuscular Hemoglobin Concent 30.5 L, Red Cell Distribution Width 13.7, Calcium Level 8.8 Vital Signs Date Time Temp Pulse Resp B/P (MAP) Pulse Ox O2 Delivery O2 Flow Rate FiO2 12/06/18 05:00 94 109/61 (77) 97 35 12/06/18 04:15 BIPAP/CPAP 12/06/18 04:00 99.4 22 12/05/18 19:00 3.0 I&O- Last 24 Hours up to 6 AM 12/06/18 06:00 Intake Total 1840 ml Output Total 950 ml Balance 890 ml LEA ARMANDO MD Dec 06, 2018 07:41
[2018-12-06] MEDS ORDERED: FLUBLOK(EGG FREE)(QUAD)INFLUENZA VACC 0.5ML SYRINGE (90682)18YRS&OLDER IM SCH (07:45)
[2018-12-06] MEDS: IBUPROFEN 600 MG TAB PO PRN ×2 (07:51→18:14)
[2018-12-06] MEDS: predniSONE 10 MG TAB PO SCH (07:54)
[2018-12-06] MEDS: LACTOBACILLUS ACIDOPHILUS CAP (BACID) PO SCH (07:54)
[2018-12-06] MEDS: THEOPHYLLINE PO SCH (07:55)
[2018-12-06] MEDS ORDERED: POTASSIUM CHLORIDE 10 MEQ SR TABLET PO ONE (08:00)
[2018-12-06] MEDS: ACETYLCYSTEINE 20% 4 ML VIAL (200MG/ML) INH SCH (08:20)
[2018-12-06] MEDS: INCRUSE ELLIPTA 62.5MCG (PATIENT'S OWN MED) INH SCH (08:21)
[2018-12-06] MEDS: BREO ELLIPTA INH SCH (08:21)
[2018-12-06] MEDS ORDERED: FLUBLOK(EGG FREE)(QUAD)INFLUENZA VACC 0.5ML SYRINGE (90682)18YRS&OLDER IM ONE (09:00)
[2018-12-06] MEDS: MULTIVITAMINS/MINERALS THERAP 1 TAB PO SCH (10:03)
[2018-12-06] MEDS: NYSTATIN 500,000 U/5 ML SUSP UDC SS SCH ×4 (10:04→20:08)
[2018-12-06] MEDS: guaiFENesin ER 600 MG TAB PO PRN ×2 (10:08→20:09)
--- NOTE | 2018-12-06 12:31 | CCN ---
DATE OF SERVICE: 12/06/2018 The patient was seen and examined this morning during rounds. The patient was able to tolerate periods off of BiPap to eat yesterday; however, in between, she did have some increased shortness breath and work of breathing and so was placed back on her BiPap. She does feel that her shortness of breath has improved, but she continues to have a cough which is productive of yellow mucus. She does not find that she has any significant improvement in her cough yet. She does find that the Mucomyst and Xopenex nebulizer treatments with the Acapella device does help with her mucus clearance. She has not had any chest pain. No abdominal pain. No nausea or vomiting. No fevers overnight and no increased lower extremity edema. PHYSICAL EXAMINATION: Temperature-max was 100, Temperature-current 99.4, pulse 94, blood pressure 104/61, O2 sat 97% on 35% on the BiPap. Ins 2.3, liters out 600 mL, positive 1.7 liters. General: The patient is a thin female who is awake and alert and oriented. Able to speak in mostly complete sentences, but is using some accessory muscles for respiration. HEENT: Normocephalic, atraumatic. Some cachexia noted. Moist mucous membranes. Pupils are equal and reactive to light. There are some mild white spots on her tongue and in her posterior oropharynx. Neck is supple. No palpable adenopathy. No jugular venous distention (JVD). Cardiovascular: Tachycardic. Regular rate and rhythm. Normal S1 and S2 with distant heart sounds and no murmurs appreciated. Respiratory: Diminished breath sounds bilaterally with some rhonchi and squeaks as well as crackles noted. There is some faint expiratory wheeze. Abdomen is soft, nontender, nondistended. No palpable hepatomegaly. Extremities: There is no lower extremity edema noted bilaterally. LABORATORY DATA: WBC 7.6, hemoglobin 10.5, platelets 266. Chemistry: Sodium is 141, potassium 3.6, chloride 97, bicarb 42, BUN 9, creatinine 0.29, glucose is 80. ABG yesterday showed a pH of 7.333, pCO2 of 69.3 and pO2 of 104.4. Microbiology: Her sputum culture is positive for yeast like organisms with a normal nancy. Her respiratory panel is positive for rhinovirus/enterovirus. Her blood cultures preliminary show no growth to date. ASSESSMENT/PLAN: Ms. Berman is a 53 year old female with history of COPD, bronchiectasis, emphysema, predominately in the lower lobes, chronic hypoxemic and hypercarbic respiratory failure on nasal cannula oxygen supplementation and C-PAP at home, with a history of sputum positive for achromobacter, status post multiple courses of antibiotics and more recently a four week course of IV Zosyn. The patient has been followed by infectious disease (ID) on an outpatient basis. She presented with increased shortness of breath and hypoxia on her usual 2 liters nasal cannula and increasing cough productive of sputum. She was found to have increased work of breathing and so was placed on BiPap. Her ABG shows chronic hypercarbic respiratory failure with a pCO2 close to her baseline. Acute COPD/bronchiectasis exacerbation with acute on chronic hypoxemic respiratory failure and a chronic hypercarbic respiratory failure most likely secondary to a viral URI with positive rhinovirus on her respiratory panel. The patient's sputum culture preliminary showed yeast-like organisms, but normal nancy. She does have some evidence of oral thrush noted on exam. - Will give the patient Nystatin swish and swallow for the thrush. She does have some hoarseness of her voice which may also be secondary to thrush. - Would continue with meropenem for now. Her procalcitonin was 0.58 which is slightly elevated. Although her sputum culture did not show any gram-negative organisms, suspect given her significant bronchiectasis and pulmonary disease that she is likely colonized with some gram-negative organisms. Will followup with ID William about possible inhaled antibiotics such as colistin. - Will continue to trend her procalcitonin with a repeat procalcitonin on Saturday. - The patient's last CT of chest in October showed chronic emphysematous changes with panacinar, severe emphysema in her lower lobes with chronic bronchiectasis. She did have a nodule in the superior segment of her left lower lobe which had increased in size compared to a previous CT in July 2018. She does need a repeat CT chest for monitoring of this nodule once she has improved in her respiratory status. - Continue to wean the patient off of BiPap during the day to nasal cannula oxygen. Would have her use the BiPap with settings of 14/6 and titrate down her FIO2 to 28%. Her goal O2 sat is 88-92% given her chronic hypercarbia. - The patient may benefit from changing from C-PAP to BiPap after discharge as she had been having worsening sleep symptoms and difficulty tolerating her C-PAP at night. - Continue with pulmonary toilet with Mucomyst and Xopenex nebulizers with an Acapella device - Continue with home inhalers - Continue prednisone 40 mg by mouth daily. The patient will likely need a slow taper. - Continue with theophylline. Her levels were therapeutic. - Followup results of urine Legionella and Strep pneumoniae. - Continue with nutritional supplementation given her pulmonary cachexia. Deep vein thrombosis (prophylaxis). Thromboembolic deterrent stockings (TEDS) and sequent compression devices (SCDs). Full code. MTDD
[2018-12-06] MEDS: THEOPHYLLINE 300 MG PO SCH (15:16)
[2018-12-06] MEDS: N ACETYL CYSTEINE PO SCH (20:08)
[2018-12-06] MEDS: MAGNESIUM OXIDE 400 MG TAB (MAG-OX) PO SCH (20:09)
[2018-12-06] MEDS: ALPRAZolam 0.25 MG TAB PO PRN (20:09)
[2018-12-06] MEDS: CETIRIZINE (ZyrTEC) 10 MG TAB PO SCH (20:09)
[2018-12-07] VITALS: BP 120/65
[2018-12-07] MEDS: IBUPROFEN 600 MG TAB PO PRN (01:38)
[2018-12-07] MEDS: LEVALBUTEROL 1.25 MG/0.5 ML CONCENTRATE NEB INH SCH ×6 (03:34→23:48)
[2018-12-07 04:00] VITALS: BP 114/72
[2018-12-07] MEDS: MEROPENEM INJ 1 GM in IV 1 EA IV SCH ×3 (04:05→21:06)
[2018-12-07] MEDS: ACETAMINOPHEN TAB 650MG DOSE (2X325MG) PO PRN (04:42)
[2018-12-07 05:01] LABS: HEMATOCRIT 37.6 % (36.0-47.0); HEMOGLOBIN 11.2 g/dl (12.0-15.5); MEAN CORPUSCULAR HEMOGLOBIN 27.4 pg (27.0-33.0); MEAN CORPUSCULAR HGB CONC 29.8 g/dl (32.0-36.5); MEAN CORPUSCULAR VOLUME 91.9 fl (80.0-96.0); PLATELET COUNT, AUTOMATED 317 10^3/uL (150-450); RED BLOOD COUNT 4.09 10^6/uL (4.00-5.40); WHITE BLOOD COUNT 8.9 10^3/uL (4.0-10.0)
[2018-12-07 05:10] LABS: BLOOD UREA NITROGEN 10 MG/DL (7-18); CALCIUM LEVEL 8.7 MG/DL (8.5-10.1); CARBON DIOXIDE LEVEL 44 MEQ/L (21-32); CHLORIDE LEVEL 97 MEQ/L (98-107); CREATININE FOR GFR 0.41 MG/DL (0.55-1.30); GLOMERULAR FILTRATION RATE > 60.0 (>51); GLUCOSE, FASTING 84 MG/DL (70-100); POTASSIUM SERUM 4.3 MEQ/L (3.5-5.1); SODIUM LEVEL 142 MEQ/L (136-145)
[2018-12-07] MEDS: BREO ELLIPTA INH SCH (07:56)
[2018-12-07] MEDS: INCRUSE ELLIPTA 62.5MCG (PATIENT'S OWN MED) INH SCH (07:57)
[2018-12-07 08:00] VITALS: BP 131/77
[2018-12-07] MEDS: N ACETYL CYSTEINE PO SCH ×2 (08:36→21:02)
[2018-12-07] MEDS: NYSTATIN 500,000 U/5 ML SUSP UDC SS SCH ×4 (08:36→21:02)
[2018-12-07] MEDS: predniSONE 10 MG TAB PO SCH (08:36)
[2018-12-07] MEDS: THEOPHYLLINE PO SCH (08:36)
[2018-12-07] MEDS: LACTOBACILLUS ACIDOPHILUS CAP (BACID) PO SCH (08:36)
[2018-12-07] MEDS: MULTIVITAMINS/MINERALS THERAP 1 TAB PO SCH (08:36)
[2018-12-07 09:57] LABS: ABG BASE EXCESS 15.3 (-2.0-2.0); ABG HCO3 43.8 MEQ/L (22.0-26.0); ABG O2 SATURATION 90.6 % (95.0-99.0); ABG PARTIAL PRESSURE O2 57.6 mmHg (75.0-100.0); ABG pH (ARTERIAL) 7.388 UNITS (7.350-7.450)
[2018-12-07 10:00] LABS: ABG PARTIAL PRESSURE CO2 74.3 mmHg (35.0-45.0)
--- NOTE | 2018-12-07 11:25 | CCN ---
DATE: 12/07/2018 The patient was seen and examined this morning during rounds. The patient was changed from the Mucomyst nebulized treatments to her home oral Mucomyst and continued with Xopenex nebulizations along with Acapella device for pulmonary toilet and mucus clearance. She feels with her oral Mucomyst that she has improvement in loosening mucus. The patient feels this morning that her shortness breath has improved slightly but she does continue to be dyspneic with limited exertion as well as desaturate with exertion. The patient feels that her mucus has lightened up in color from previous. She does not have any hemoptysis. Has not had any fevers or chills. No abdominal pain. No nausea or vomiting. PHYSICAL EXAM: Temperature 99.6, maximum temperature (Tmax) yesterday was 100, pulse is 101, respirations 30, blood pressure 114/72, oxygen saturation 93% on bilevel positive airway pressure (BiPAP) at 40%. Ins 1.3 liters, out 2.8 liters, net negative 1.4 liters. General: The patient is a thin, cachectic female who is awake, alert and oriented. Able to speak in short phrases but is using some accessory muscles for respiration. HEENT: Normocephalic, atraumatic. Cachexia noted. Moist mucous membranes. Pupils are reactive to light bilaterally. There are some white spots noted in her oropharynx. Neck is supple. No palpable adenopathy. No jugular venous distention (JVD). Cardiovascular. Tachycardic. Regular rate and rhythm. Normal S1, S2 with distant heart sounds. No murmurs appreciated. Respiratory: Diminished breath sounds bilaterally with some squeaks and rhonchi noted. There are few crackles as well but no wheezes. Abdomen is soft, nontender, nondistended. No palpable hepatomegaly. Extremities: There is no lower extremity edema noted bilaterally. LABS: WBC 8.9, hemoglobin 11.2, platelets 317. Chemistry: Sodium is 142, potassium 4.3, chloride is 97, bicarbonate is 44, BUN is 10, creatinine 0.41, glucose is 87. No new labs. ASSESSMENT AND PLAN: Ms. Berman is a 53-year female with history of chronic obstructive pulmonary disease (COPD), bronchiectasis, emphysema predominantly in the lower lobes chronic hypoxemic and hypercarbic respiratory failure on nasal cannula oxygen supplementation and continuous positive airway pressure (CPAP) at home, history of sputum positive for Achromobacter status post multiple courses of antibiotics as an outpatient and a 4 week course of Zosyn. The patient has been followed by Infectious Disease (ID) as an outpatient for this. She presented with increased shortness of breath and hypoxia as well as increasing cough productive of sputum. Acute COPD/bronchiectasis extubation with acute on chronic hypoxemic respiratory failure and chronic hypercarbic respiratory failure most likely secondary to a viral upper respiratory infection (URI) with a positive rhinovirus. The patient's sputum culture showed yeast-like organisms but normal nancy. She did have some evidence of oral thrush noted on exam. - Continue with nystatin swish and swallow for the thrush. - Appreciate ID consult and recommendations. Continue with meropenem. Will repeat a procalcitonin on Saturday to continue to trend and for de-escalation of her antibiotics. - The patient's sputum culture did not show any gram-negative organisms, however, given her significant bronchiectasis and a pulmonary I suspect that she is still likely colonized with some gram-negative organisms. Will followup with ID recommendations about possible inhaled antibiotics such as colistin. - The patient will need a repeat CT chest done likely tomorrow if her respiratory status is improved. On her last CT chest in October she did have a nodule in the superior segment of her left lower lobe, which had increased in size compared to a previous CT in July 2018. There is otherwise chronic changes noted on her CT, which were unchanged. - The patient will be changed to tabletop BiPAP at night and with naps as needed during the day for increased work of breathing. Will continue with the tabletop at settings of 15/6 and her FiO2 was increased overnight to 40%. The patient does desaturate with limited movement, so will likely be able to wean her down to 35%. - Will repeat arterial blood gas (ABG) in the morning after being on the tabletop. - Continue with nasal cannula oxygen supplementation to maintain oxygen saturation of 88-92% given her chronic hypercarbia. - The patient will likely benefit from changing her home CPAP to BiPAP after discharge as well as repeating a sleep study for titration of her BiPAP. - Continue pulmonary toilet with Mucomyst and Xopenex nebulizers with an Acapella device. - Continue with home inhalers. - Continue prednisone 40 mg by mouth daily. Will likely need a slow taper. - Continue with theophylline. - Continue with nutritional show supplementation given her pulmonary cachexia. Deep venous thrombosis (DVT) prophylaxis, thromboembolism deterrents (TEDs) and sequentials FULL CODE. Would have discussion with the patient about goals of care including healthcare proxy. SHEELA
[2018-12-07 12:02] VITALS: BP 113/98
[2018-12-07] MEDS: ALPRAZolam 0.25 MG TAB PO PRN ×2 (12:13→20:59)
[2018-12-07] MEDS: THEOPHYLLINE 300 MG PO SCH (15:06)
[2018-12-07 16:00] VITALS: BP 123/64
--- NOTE | 2018-12-07 19:29 | IPNPDOC ---
Subjective Date Seen The patient was seen on 12/07/18. Subjective Chief Complaint/HPI minimally improved dyspnea Constitutional: Denies: Chills Eyes: Denies: Pain ENT: Denies: Head Aches Skin: Denies: Rash Pulmonary: Denies: Dyspnea, Cough Cardiovascular: Denies: Chest Pain, Palpitations Gastrointestinal: Denies: Nausea, Vomiting Objective Physical Examination General Exam: Positive: Alert, Cooperative, Mild Distress, Other (cachectic and chronically ill appearing); Negative: No Acute Distress Eye Exam: Positive: PERRLA (injected conjunctiva), EOMI; Negative: Sclera icteric ENT Exam: Positive: Atraumatic, Mucous membr. moist/pink, Pharynx Normal (mildly injected posterior oropharynx with no exudates) Neck Exam: Positive: Supple; Negative: JVD, thyromegaly, Lymphadenopathy Chest Exam: Positive: Rales (scattered rare crackles throughout both posterior lung kramer), Diminished; Negative: Rhonchi, Wheezing Heart Exam: Positive: Rate Normal, Regular Rhythm, Normal S1, Normal S2; Negative: Gallops, Murmurs, Rubs Abdomen Exam: Positive: Normal bowel sounds, Soft, Other (scaphoid); Negative: Tenderness, Hepatospenomegaly Extremity Exam: Positive: Normal pulses; Negative: Clubbing, Cyanosis, Edema, Tenderness, Swelling Skin Exam: Positive: Rash (flat confluent macular rash across abdomen, reportedly developed 3 days ago, and often gets it with illness) Neuro Exam: Positive: Normal Gait, Normal Speech, Strength at 5/5 X4 ext, Sensation Intact, Cranial Nerves 3-12 NL Psych Exam: Positive: Mental status NL, Mood NL, Oriented x 3 Assessment /Plan Problems (1) DNR (do not resuscitate) Problem Text: 12/07/18 after much consideration and dw family/friends, patient elects for DNR/DNI status and requests Hospice consult. MOLST completed. She still would like hospital rx c IVF, IV abx if needed and is unsure re parental nutrition. (2) Bronchiectasis Status: Acute Response to Treatment: Improving Problem Text: D4 katelynn slow pred wean-currently 40 10/20/18 SCX: REFERENCE TEST ANGELINA Final SUN Organism 1 ACHROMOBACTER XYLOSOXIDANS Susceptibility guidelines for Achromobacter spp. and Alcaligenes spp. have not been established. With the exception of Piperacillin and Ticarcillin - clavulanic acid, susceptibilities are unpredictable. Testing performed at reference lab. REF LAB#[id number] 1. ACHROMOBACTER XYLOSOXIDANS RX Route Dose M.I.C. ----- ----- --------- PIPERACILLIN/TAZOBACTAM S IV 2.25 gm q6h <=4 (3) Cachexia associated with pulmonary fibrosis (4) Stage 4 very severe COPD by GOLD classification (5) Chronic respiratory failure with hypoxia and hypercapnia Status: Chronic Problem Text: changed CPAP to BIPAP 14/6 c FiO2 40% at rest Plan/VTE VTE Prophylaxis Ordered?: Yes VTE Exclusion Pharmacological: Patient/Family Refusal Plan Diet: Continue Current, Supplement Activity: Continue Current Therapy: PT, OT VS, I&O, 24H, Fishbone Vital Signs/I&O Vital Signs Date Time Temp Pulse Resp B/P (MAP) Pulse Ox O2 Delivery O2 Flow Rate FiO2 12/07/18 16:00 98.9 120 28 123/64 (83) 93 3.0 12/07/18 04:00 40 12/06/18 04:15 BIPAP/CPAP I&O- Last 24 Hours up to 6 AM 12/07/18 05:59 Intake Total 1277 ml Output Total 2460 ml Balance -1183 ml Laboratory Data 24H LABS Laboratory Tests 2 12/07/18 04:33: Nucleated Red Blood Cells % (auto) 0.0, Anion Gap 1L, Glomerular Filtration Rate > 60.0, Blood Urea Nitrogen 10, Creatinine 0.41L, Sodium Level 142, Potassium Le kari 4.3, Chloride Level 97L, Carbon Dioxide Level 44H, Calcium Level 8.7, Procalcitonin 0.10 12/07/18 09:34: Blood Gas Bicarbonate Standard 39.0H, Arterial Blood pH 7.388, Arterial Blood Partial Pressure CO2 74.3*H, Arterial Blood Partial Pressure O2 57.6L, Arterial Blood Total CO2 46.0H, Arterial Blood HCO3 43.8H, Arterial Blood Base Excess 15.3H, Arterial Blood Oxygen Saturation 90.6L CBC/BMP Laboratory Tests 12/07/18 04:33 Red Blood Count 4.09, Mean Corpuscular Volume 91.9, Mean Corpuscular Hemoglobin 27.4, Mean Corpuscular Hemoglobin Concent 29.8 L, Red Cell Distribution Width 13.7, Calcium Level 8.7 Microbiology Microbiology 12/04/18 Respiratory Virus Panel (PCR) (CHRISTOPHER) - Final, Complete Human Rhinovirus/Enterovirus 12/04/18 Gram Stain - Final, Complete 12/04/18 Sputum Culture - Final, Complete Yeast Like Organism 12/04/18 Blood Culture - Preliminary, Resulted No Growth after 72 hours. All specime... Tha Huffman M.D. Dec 07, 2018 19:29
[2018-12-07] MEDS: CETIRIZINE (ZyrTEC) 10 MG TAB PO SCH (20:59)
[2018-12-07] MEDS: MAGNESIUM OXIDE 400 MG TAB (MAG-OX) PO SCH (20:59)
[2018-12-07] MEDS: guaiFENesin ER 600 MG TAB PO PRN (21:01)
[2018-12-07 22:00] VITALS: BP 118/64
[2018-12-08] VITALS (8 sets, daily range): BP systolic 116–143; BP diastolic 58–74
[2018-12-08] MEDS: LEVALBUTEROL 1.25 MG/0.5 ML CONCENTRATE NEB INH SCH ×6 (03:08→23:14)
[2018-12-08] MEDS: MEROPENEM INJ 1 GM in IV 1 EA IV SCH ×2 (04:46→12:05)
[2018-12-08 05:07] LABS: HEMOGLOBIN 11.4 g/dl (12.0-15.5); MEAN CORPUSCULAR HEMOGLOBIN 27.5 pg (27.0-33.0); MEAN CORPUSCULAR VOLUME 91.6 fl (80.0-96.0); PLATELET COUNT, AUTOMATED 345 10^3/uL (150-450); RED BLOOD COUNT 4.15 10^6/uL (4.00-5.40); WHITE BLOOD COUNT 10.6 10^3/uL (4.0-10.0)
[2018-12-08 05:20] LABS: BLOOD UREA NITROGEN 11 MG/DL (7-18); CARBON DIOXIDE LEVEL 44 MEQ/L (21-32); CHLORIDE LEVEL 96 MEQ/L (98-107); CREATININE FOR GFR 0.46 MG/DL (0.55-1.30); GLOMERULAR FILTRATION RATE > 60.0 (>51); GLUCOSE, FASTING 81 MG/DL (70-100); POTASSIUM SERUM 4.4 MEQ/L (3.5-5.1); SODIUM LEVEL 141 MEQ/L (136-145)
[2018-12-08 05:37] LABS: ABG BASE EXCESS 14.4 (-2.0-2.0); ABG HCO3 42.3 MEQ/L (22.0-26.0); ABG O2 SATURATION 96.6 % (95.0-99.0); ABG PARTIAL PRESSURE O2 87.6 mmHg (75.0-100.0); ABG STANDARD HCO3 38.3 MEQ/L (22.0-26.0); ABG TOTAL CO2 44.5 MEQ/L (22.0-29.0); ABG pH (ARTERIAL) 7.397 UNITS (7.350-7.450)
[2018-12-08 05:39] LABS: ABG PARTIAL PRESSURE CO2 70.4 mmHg (35.0-45.0)
[2018-12-08] MEDS: guaiFENesin ER 600 MG TAB PO PRN (06:38)
[2018-12-08] MEDS: predniSONE 10 MG TAB PO SCH (08:23)
[2018-12-08] MEDS: MULTIVITAMINS/MINERALS THERAP 1 TAB PO SCH (08:23)
[2018-12-08] MEDS: THEOPHYLLINE PO SCH (08:23)
[2018-12-08] MEDS: NYSTATIN 500,000 U/5 ML SUSP UDC SS SCH ×4 (08:23→20:27)
[2018-12-08] MEDS: LACTOBACILLUS ACIDOPHILUS CAP (BACID) PO SCH (08:23)
[2018-12-08] MEDS: N ACETYL CYSTEINE PO SCH ×2 (08:36→20:27)
[2018-12-08] MEDS: ALPRAZolam 0.25 MG TAB PO PRN (09:11)
--- NOTE | 2018-12-08 10:11 | IPNPDOC ---
Subjective Date Seen The patient was seen on 12/08/18. Subjective Chief Complaint/HPI pneumonia, fever Events since last encounter Hospice consult pending for patient. DNR/DNI signed. She has opted out of comfort measures for the time being and would like to continue with antibiotic tx if indicated. Constitutional: Reports: Weakness, Fatigue; Denies: Chills, Fever Skin: Denies: Rash, Lesions, Breakdown Pulmonary: Reports: Dyspnea (controlled on 4LNC) Cardiovascular: Denies: Chest Pain, Palpitations, Orthopnea, Paroxysmal Noc. Dyspnea, Lt Headedness Psych: Reports: Mood Normal; Denies: Depression, Memory Issues Objective Physical Examination General Exam: Positive: Alert, Cooperative, Mild Distress, Other (cachectic and chronically ill appearing); Negative: No Acute Distress Eye Exam: Positive: PERRLA, EOMI; Negative: Sclera icteric ENT Exam: Positive: Atraumatic, Mucous membr. moist/pink, Pharynx Normal (mildly injected posterior oropharynx with no exudates) Neck Exam: Positive: Supple; Negative: JVD, thyromegaly, Lymphadenopathy Chest Exam: Positive: Rales (scattered rare crackles throughout both posterior lung kramer), Diminished; Negative: Rhonchi, Wheezing Heart Exam: Positive: Rate Normal, Regular Rhythm, Normal S1, Normal S2; Negative: Gallops, Murmurs, Rubs Abdomen Exam: Positive: Normal bowel sounds, Soft, Other (scaphoid); Negative: Tenderness, Hepatospenomegaly Extremity Exam: Positive: Normal pulses; Negative: Clubbing, Cyanosis, Edema, Tenderness, Swelling Skin Exam: Positive: Rash (flat confluent macular rash across abdomen, reportedly developed 3 days ago, and often gets it with illness) Neuro Exam: Positive: Normal Gait, Normal Speech, Strength at 5/5 X4 ext, Sensation Intact, Cranial Nerves 3-12 NL Psych Exam: Positive: Mental status NL, Mood NL, Oriented x 3 Assessment /Plan Problems (1) DNR (do not resuscitate) Problem Text: 12/08/18: Hospice consult pending. Spent time reviewing hospice with patient. Advised if decides against hospice, consider palliative care. Patient open to review with hospice on options. 12/07/18 after much consideration and dw family/friends, patient elects for DNR/DNI status and requests Hospice consult. MOLST completed. She still would like hospital rx c IVF, IV abx if needed and is unsure re parental nutrition. (2) Bronchiectasis Status: Acute Response to Treatment: Improving Problem Text: D5 katelynn slow pred wean-currently 40 10/20/18 SCX: REFERENCE TEST AGNELINA PALOMO Organism 1 ACHROMOBACTER XYLOSOXIDANS Susceptibility guidelines for Achromobacter spp. and Alcaligenes spp. have not been e stablished. With the exception of Piperacillin and Ticarcillin - clavulanic acid, susceptibilities are unpredictable. Testing performed at reference lab. REF LAB#[id number] 1. ACHROMOBACTER XYLOSOXIDANS RX Route Dose M.I.C. ----- ----- --------- PIPERACILLIN/TAZOBACTAM S IV 2.25 gm q6h <=4 (3) Cachexia associated with pulmonary fibrosis Status: Chronic (4) Stage 4 very severe COPD by GOLD classification Status: Chronic (5) Chronic respiratory failure with hypoxia and hypercapnia Status: Chronic Problem Text: changed CPAP to BIPAP 14/6 c FiO2 40% at rest Plan/VTE VTE Prophylaxis Ordered?: Yes VTE Exclusion Pharmacological: Patient/Family Refusal Plan Diet: Continue Current, Supplement Activity: Continue Current Therapy: PT, OT Family Medicine Attending Note: I saw and examined Ms. Berman, discussed with JOHN James. Agree with her note as documented. She is going to be starting chest physiotherapy later today; it sounds like she already has a shaker vest at home. She is discouraged today that she is not able to reduce her oxygen requirements, closer to the 2 L she was on before she came. I reminded her that after the lungs are injured, it generally takes them weeks to recover. She needs to be patient with herself. Being patient with her current situation is becoming increasingly difficult for her. She reports there was a 10 day window of time after she completed a recent course of Zosyn when she felt almost normal again. Knowing she has Achromobacter, that makes sense. Unfortunately, I don't think it's reasonable for her to be on suppressive Piperacillin. She starting to deal with her own mortality. She reports her children are frustrated with her for "giving up." She doesn't want to give up, but she also does not want to live a miserable life. She starting to understand that, for her, there may be a balance between quantity of life and quality of life. We have been gently reinforcing these ideas, but are allowing her to come to her own conclusions in her own timing. She did not have any family members she wanted us to specifically reach out to, however she seemed to like the idea of us discussing these ideas with her family when they are present. 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, I&O, 24H, Fishbone Vital Signs/I&O Vital Signs Date Time Temp Pulse Resp B/P (MAP) Pulse Ox O2 Delivery O2 Flow Rate FiO2 12/08/18 08:00 98.8 93 24 122/58 (79) 93 4.0 12/07/18 04:00 40 12/06/18 04:15 BIPAP/CPAP I&O- Last 24 Hours up to 6 AM 12/08/18 06:00 Intake Total 750 ml Output Total 1950 ml Balance -1200 ml Laboratory Data 24H LABS Laboratory Tests 2 12/08/18 04:45: Nucleated Red Blood Cells % (auto) 0.0, Anion Gap 1L, Glomerular Filtration Rate > 60.0, Blood Urea Nitrogen 11, Creatinine 0.46L, Sodium Level 141, Potassium Level 4.4, Chloride Level 96L, Carbon Dioxide Level 44H, Calcium Level 9.0 12/08/18 05:27: Blood Gas Bicarbonate Standard 38.3H, Arterial Blood pH 7.397, Arterial Blood Partial Pressure CO2 70.4*H, Arterial Blood Partial Pressure O2 87.6, Arterial Blood Total CO2 44.5H, Arterial Blood HCO3 42.3H, Arterial Blood Base Excess 14.4H, Arterial Blood Oxygen Saturation 96.6 CBC/BMP Laboratory Tests 12/08/18 04:45 Red Blood Count 4.15, Mean Corpuscular Volume 91.6, Mean Corpuscular Hemoglobin 27.5, Mean Corpuscular Hemoglobin Concent 30.0 L, Red Cell Distribution Width 13.7, Calcium Level 9.0 Microbiology Microbiology 12/04/18 Respiratory Virus Panel (PCR) (CHRISTOPHER) - Final, Complete Human Rhinovirus/Enterovirus 12/04/18 Gram Stain - Final, Complete 12/04/18 Sputum Culture - Final, Complete Yeast Like Organism 12/04/18 Blood Culture - Preliminary, Resulted No Growth after 72 hours. All specime... Sangita Butterfield Dec 08, 2018 10:11 am Curtis Melchor MD Dec 08, 2018 7:47 pm
[2018-12-08] MEDS: BREO ELLIPTA INH SCH (11:36)
[2018-12-08] MEDS: INCRUSE ELLIPTA 62.5MCG (PATIENT'S OWN MED) INH SCH (11:36)
[2018-12-08] MEDS: IBUPROFEN 600 MG TAB PO PRN (12:12)
--- NOTE | 2018-12-08 14:04 | CCN ---
DATE: 12/08/2018 Patient was seen and examined this morning during bedside rounds. The patient was on tabletop BiPAP last night which she tolerated well. She had a repeat ABG done this morning which shows chronic compensated respiratory acidosis. The patient continues to feel she is improving slightly in terms of her shortness of breath and her cough. She does continue to have a cough productive of mucus although she feels it is loosening up from previous. Has not had any fevers or chills. No abdominal pain. No nausea or vomiting. No increase of extremity edema. PHYSICAL EXAM: Temperature 98.2, pulse 98, respirations 18, blood pressure 118/68, 02 92% on 4 liters nasal cannula, net negative 830 mL. GENERAL: Patient is a thin, cachectic female who is awake and alert and oriented. Is using accessory muscles for respiration and able to speak in short phrases. HEENT: Normocephalic, atraumatic. Cachexia noted. Moist mucous membranes. Pupils are reactive to light bilaterally. Neck is supple. No palpable adenopathy. No JVD. CARDIOVASCULAR: Regular rate and rhythm. Normal S1-S2 with distant heart sounds and no murmurs appreciated. RESPIRATORY: Decreased breath sounds bilaterally with squeaks and rhonchi noted. There are few crackles as well but no wheezes. ABDOMEN: Soft, nontender, nondistended. No palpable hepatomegaly. EXTREMITIES: There is no lower extremity edema noted bilaterally. LABORATORY DATA: WBC 10.6, hemoglobin 11.4, platelets 345. Chemistries - sodium is 141, potassium 4.4, chloride 96, bicarb 44, BUN 11, creatinine 0.46, glucose 81. ASSESSMENT/PLAN: Ms. Berman is a 53-year-old female with history of COPD, bronchiectasis, emphysema predominately in the lower lobes, chronic hypoxemic and hypercarbic respiratory failure on nasal cannula oxygen supplementation and CPAP for obstructive sleep apnea (NANCY), history of sputum positive for Achromobacter status post multiple courses of antibiotics as an outpatient including a four week course of Zosyn. The patient presented with increased shortness breath and hypoxia as well as increased cough productive of sputum. Acute COPD/bronchiectasis exacerbation with acute on chronic hypoxemic respiratory failure and chronic hypercarbic respiratory failure most likely secondary to a viral upper respiratory infection (URI) with a positive rhinovirus on admission. The patient's sputum culture showed yeast like organisms but normal nancy. She did have evidence of some oral thrush on exam. Continue with nystatin swish and swallow for the thrush to complete a five day course. - Appreciate infectious disease (ID) consult and recommendations. The patient is continued on meropenem. Will repeat a procalcitonin today to continue to trend and deescalate her antibiotics. - The patient's sputum culture had not grown any gram negative organisms; however given her significant bronchiectasis and pulmonary disease, suspect she may still be colonized with some gram-negative organisms. Will followup with ID about recommendations for possible inhaled antibiotics such as colistin. - Will repeat a CT chest today as her previous CT in October did have a nodule in the superior segment of her left lower lobe which was increasing in size compared to a CT from July 2018. There were otherwise chronic changes noted on her CT which were unchanged. - The patient was on tabletop BiPAP overnight and she tolerated it well. Her ABG this morning shows compensated respiratory acidosis. Will continue her with the tabletop BiPAP on settings of 15/6 and FIO2 of 30% adjusted to maintain O2 sat of 88-92%. - Patient was compliant with CPAP as an outpatient but had reported worsening daytime somnolence and non refreshing sleep despite using CPAP. On admission she was noted to have hypercarbic respiratory failure and was started on BIPAP. Patient had benefit with BIPAP for her respiratory symptoms. Therefore would change her from CPAP as outpatient to BIPAP prior to discharge with the settings of 15/6 with 4L/min O2 bleed and follow-up as outpatient for further adjustments. - Continue with nasal cannula oxygen supplementation to maintain O2 sat of 88- 92% given her chronic hypercarbia. - Continue pulmonary toilet with oral Mucomyst and Xopenex nebulizers with an Acapella device. Will add a percussion vest to help with mucus clearance. - Continue home inhalers. - Continue with prednisone 40 mg. If the patient is improving can consider a slow taper. - Continue with theophylline. Continue nutritional supplementation given her pulmonary cachexia. Deep vein thrombosis (DVT) prophylaxis. Thromboembolic deterrent stockings (TEDS) and sequential compression devices (SCD). Goal goals of care discussion was performed with the patient and she wished to change her code status to DO NOT RESUSCITATE/DO NOT INTUBATE. The patient was also asking about end of life management, such as hospice and palliative care. Although she states she is not ready for that currently, she understands with her chronic lung condition that she would like to prepare for the future possibilities. SHEELA
[2018-12-08] MEDS: THEOPHYLLINE 300 MG PO SCH (15:10)
[2018-12-08] MEDS ORDERED: SODIUM BICARBONATE 8.4% INJ 50 ML SYRINGE ONE (15:22)
[2018-12-08] MEDS ORDERED: EPINEPHrine 1MG/10ML SYRINGE 1.5IN ONE (15:22)
--- NOTE | 2018-12-08 16:11 | REP ---
CT of the chest without IV contrast: Comparison is 10/20/2018. There is severe bullous replacement of the lung parenchyma, predominately in the mid and lower lung zones. This is unchanged. There is severe saccular bronchiectasis throughout all lobes of both lungs. This is unchanged. There is focal discoid atelectasis in the superior segment right lower lobe, not significantly changed. The nodule in the superior segment of the left lower lobe today measures 6 mm in diameter. This measured 9 mm previously. The atelectasis adjacent to this nodule has significantly decreased. There are no new infiltrates or pleural effusions. There are no pleural effusions. There are no acute infiltrates. No adenopathy is identified. The unenhanced thoracic aorta is unremarkable. Cardiac size is normal. The visualized upper abdominal structures are unremarkable and unchanged. There is a minimal volume of body fat. This is unchanged. Impression: There are no acute cardiopulmonary findings. There is chronic severe bullous emphysema, particularly in the mid and lower lung zones. There is chronic severe saccular bronchiectasis throughout all lobes of both lungs. The nodular density in the left lower lobe superior segment has decreased in size. Electronically Signed by Edward Kate MD 12/08/2018 04:02 P
--- NOTE | 2018-12-08 18:34 | IPN ---
DATE: 12/08/2018 Melisa is upset that her oxygen needs have increased today and she is not feeling like she is progressing as quick as she wants to be home. She also has been discussing hospice care and DO NOT RESUSCITATE (DNR). She has signed a DNR/DO NOT INTUBATE (DNI). She has been afebrile for the past 48 hours. Maximum temperature (T-max) during this hospitalization was 100.1. She still has some hoarseness but no runny nose. Her cough is productive of yellow phlegm but that has decreased. She is using her chest therapy. LABORATORY DATA: White count is 10.6, hemoglobin 11.4, hematocrit 38, platelets 355. Sodium 141, potassium 4.4, chloride 96, bicarbonate 44, BUN 11, creatinine 0.46, glucose 81, calcium 9. Procalcitonin yesterday was 0.1. Sputum culture had yeast-like organism and nasopharyngeal swab by [facility] was positive for Rhinovirus. CT chest showed no acute findings. There is severe chronic bullous emphysema in the mid and lower lungs and chronic severe saccular bronchiectasis throughout all the lobes of both lungs. The nodular density in the left lower lobe has decreased in size. IMPRESSION: 1. Bronchiectasis exacerbation due to Rhinovirus without any evidence of bacterial infection. Sputum culture was negative in spite of many white cells. Meropenem will be discontinued. She is currently day number five and her procalcitonin is normal. CT does not show any acute findings. 2. Severe bronchiectasis with end-stage lung disease. The patient has signed a DO NOT RESUSCITATE (DNR). PH today was 7.397, pCO2 70, pO2 was 87, and oxygen saturation 96%. PLAN: Case has been discussed with Dr. Grant who agrees on discontinuing meropenem. The patient would like to have a referral possibly for legal marijuana. We can make a referral as an outpatient to Dr. Diogo Connelly, that would with appetite and hopefully with weight gaint. She will not be a transplant candidate unless she weighs at least 125 pounds. PHYSICAL EXAMINATION: Temperature is 98.5, pulse 114, respirations 22, blood pressure 133/74, oxygen saturation 92% on four liters nasal cannula. HEART: Normal S1, S2, tachycardiac. No murmurs. LUNGS: Very diminished air entry with inspiratory crackles and expiratory wheezes bilaterally. ABDOMEN: Soft, nontender. No hepatosplenomegaly. SKIN: No rashes. EXTREMITIES: No clubbing, cyanosis or edema. No calf tenderness. Oropharynx without thrush.
[2018-12-08] MEDS: CETIRIZINE (ZyrTEC) 10 MG TAB PO SCH (20:27)
[2018-12-08] MEDS: MAGNESIUM OXIDE 400 MG TAB (MAG-OX) PO SCH (20:27)
[2018-12-09] VITALS (7 sets, daily range): BP systolic 115–126; BP diastolic 64–73; O2SAT 97–99
[2018-12-09 00:14] LABS: BODY FLUID CULTURE Not Indicated (.); LEGIONELLA ANTIGEN URINE Negative (Negative); ORGANISM ID Not indicated. (.); SPECIMEN SOURCE Urine (.); URINE STREP PNEUMONIAE ANTIGEN Negative (Negative)
[2018-12-09] MEDS: LEVALBUTEROL 1.25 MG/0.5 ML CONCENTRATE NEB INH SCH ×6 (03:29→23:18)
[2018-12-09 05:33] LABS: HEMATOCRIT 38.8 % (36.0-47.0); HEMOGLOBIN 11.7 g/dl (12.0-15.5); MEAN CORPUSCULAR HEMOGLOBIN 27.5 pg (27.0-33.0); MEAN CORPUSCULAR HGB CONC 30.2 g/dl (32.0-36.5); MEAN CORPUSCULAR VOLUME 91.1 fl (80.0-96.0); PLATELET COUNT, AUTOMATED 374 10^3/uL (150-450); RED BLOOD COUNT 4.26 10^6/uL (4.00-5.40); WHITE BLOOD COUNT 11.3 10^3/uL (4.0-10.0)
[2018-12-09 06:13] LABS: BLOOD UREA NITROGEN 17 MG/DL (7-18); CALCIUM LEVEL 9.1 MG/DL (8.5-10.1); CARBON DIOXIDE LEVEL 42 MEQ/L (21-32); CHLORIDE LEVEL 96 MEQ/L (98-107); CREATININE FOR GFR 0.41 MG/DL (0.55-1.30); GLOMERULAR FILTRATION RATE > 60.0 (>51); GLUCOSE, FASTING 88 MG/DL (70-100); POTASSIUM SERUM 4.4 MEQ/L (3.5-5.1); SODIUM LEVEL 140 MEQ/L (136-145)
[2018-12-09] MEDS: BREO ELLIPTA INH SCH (07:37)
[2018-12-09] MEDS: INCRUSE ELLIPTA 62.5MCG (PATIENT'S OWN MED) INH SCH (07:38)
[2018-12-09] MEDS: LACTOBACILLUS ACIDOPHILUS CAP (BACID) PO SCH (08:07)
[2018-12-09] MEDS: NYSTATIN 500,000 U/5 ML SUSP UDC SS SCH ×4 (08:07→20:12)
[2018-12-09] MEDS: MULTIVITAMINS/MINERALS THERAP 1 TAB PO SCH (08:07)
[2018-12-09] MEDS: guaiFENesin ER 600 MG TAB PO PRN ×2 (08:07→20:12)
[2018-12-09] MEDS: predniSONE 10 MG TAB PO SCH (08:07)
[2018-12-09] MEDS: ALPRAZolam 0.25 MG TAB PO PRN (08:07)
[2018-12-09] MEDS: THEOPHYLLINE PO SCH (08:08)
[2018-12-09] MEDS: N ACETYL CYSTEINE PO SCH ×2 (08:08→20:12)
--- NOTE | 2018-12-09 09:02 | IPNPDOC ---
Subjective Date Seen The patient was seen on 12/09/18. Subjective Chief Complaint/HPI pneumonia, fever Events since last encounter patient's family coming in to visit. Has caused some mild anxiety. Has been transitioned to table top bipap with improvement. oxygen weaned down to 3LNC. Patient to meet with Hospice today. Constitutional: Denies: Chills, Fever, Night Sweats Skin: Denies: Rash, Lesions, Breakdown Pulmonary: Reports: Dyspnea, Cough Cardiovascular: Denies: Chest Pain, Palpitations, Orthopnea, Paroxysmal Noc. Dyspnea, Edema, Lt Headedness Gastrointestinal: Denies: Nausea, Vomiting, Abdominal Pain, Diarrhea, Constipation Psych: Reports: Mood Normal; Denies: Depression, Memory Issues Objective Physical Examination General Exam: Positive: Alert, Cooperative, Mild Distress, Other (cachectic and chronically ill appearing); Negative: No Acute Distress Eye Exam: Positive: PERRLA, EOMI; Negative: Sclera icteric ENT Exam: Positive: Atraumatic, Mucous membr. moist/pink, Pharynx Normal Neck Exam: Positive: Supple; Negative: JVD, thyromegaly, Lymphadenopathy Chest Exam: Positive: Rhonchi (clears with cough), Diminished; Negative: Wheezing Heart Exam: Positive: Rate Normal, Regular Rhythm, Normal S1, Normal S2; Negative: Gallops, Murmurs, Rubs Abdomen Exam: Positive: Normal bowel sounds, Soft, Other; Negative: Tenderness, Hepatospenomegaly Extremity Exam: Positive: Normal pulses; Negative: Clubbing, Cyanosis, Edema, Tenderness, Swelling Neuro Exam: Positive: Normal Gait, Normal Speech, Strength at 5/5 X4 ext, Sensation Intact, Cranial Nerves 3-12 NL Psych Exam: Positive: Mental status NL, Mood NL, Oriented x 3 Assessment /Plan Problems (1) DNR (do not resuscitate) Problem Text: 12/09/18: Hospice meeting today. Reviewed goals with patient today. I feel she may be more palliative care appropriate based on her goals. Will re-eval post Hospice meeting. 12/08/18: Hospice consult pending. Spent time reviewing hospice with patient. Advised if decides against hospice, consider palliative care. Patient open to review with hospice on options. 12/07/18 after much consideration and dw family/friends, patient elects for DNR/DNI status and requests Hospice consult. MOLST completed. She still would like hospital rx c IVF, IV abx if needed and is unsure re parental nutrition. (2) Bronchiectasis Status: Acute Response to Treatment: Improving Problem Text: D5 katelynn slow pred wean-currently 40 10/20/18 SCX: REFERENCE TEST ANGELINA PALOMO Organism 1 ACHROMOBACTER XYLOSOXIDANS Susceptibility guidelines for Achromobacter spp. and Alcaligenes spp. have not been established. With the exception of Piperacillin and Ticarcillin - clavulanic acid, susceptibilities are unpredictable. Testing performed at reference lab. REF LAB#[id number] 1. ACHROMOBACTER XYLOSOXIDANS RX Route Dose M.I.C. ----- ----- --------- PIPERACILLIN/TAZOBACTAM S IV 2.25 gm q6h <=4 (3) Cachexia associated with pulmonary fibrosis Status: Chronic Problem Text: may consider medical marijuana for appetite. (4) Stage 4 very severe COPD by GOLD classification Status: Chronic (5) Chronic respiratory failure with hypoxia and hypercapnia Status: Chronic Problem Text: Plan per Pulmonology: table top Bipap. Slow steroid taper. changed CPAP to BIPAP 14/6 c FiO2 40% at rest Plan/VTE VTE Prophylaxis Ordered?: Yes VTE Exclusion Pharmacological: Patient/Family Refusal Plan Diet: Continue Current, Supplement Activity: Continue Current Therapy: PT, OT VS, I&O, 24H, Fishbone Vital Signs/I&O Vital Signs Date Time Temp Pulse Resp B/P (MAP) Pulse Ox O2 Delivery O2 Flow Rate FiO2 12/09/18 08:00 3.0 12/09/18 07:51 97.3 96 24 117/73 (88) 92 12/07/18 04:00 40 12/06/18 04:15 BIPAP/CPAP I&O- Last 24 Hours up to 6 AM 12/09/18 06:00 Intake Total 1610 ml Output Total 1600 ml Balance 10 ml Laboratory Data 24H LABS Laboratory Tests 2 12/09/18 04:46: Nucleated Red Blood Cells % (auto) 0.0, Anion Gap 2L, Glomerular Filtration Rate > 60.0, Blood Urea Nitrogen 17#, Creatinine 0.41L, Sodium Level 140, Potassium Level 4.4, Chloride Level 96L, Carbon Dioxide Level 42H, Calcium Level 9.1 CBC/BMP Laboratory Tests 12/09/18 04:46 Red Blood Count 4.26, Mean Corpuscular Volume 91.1, Mean Corpuscular Hemoglobin 27.5, Mean Corpuscular Hemoglobin Concent 30.2 L, Red Cell Distribution Width 13 .9, Calcium Level 9.1 Microbiology Microbiology 12/04/18 Respiratory Virus Panel (PCR) (CHRISTOPHER) - Final, Complete Human Rhinovirus/Enterovirus 12/04/18 Gram Stain - Final, Complete 12/04/18 Sputum Culture - Final, Complete Yeast Like Organism 12/04/18 Blood Culture - Preliminary, Resulted No Growth after 72 hours. All specime... Sangita ButterfieldP Dec 09, 2018 09:02
--- NOTE | 2018-12-09 11:02 | CCN ---
DATE: 12/09/2018 The patient was seen and examined this morning during bedside rounds. The patient feels that her cough and mucus clearance has been improving. She feels the mucus is looser and she was able to expectorate more mucus. She did use the percussion vest yesterday in addition to her Acapella and oral Mucomyst for pulmonary toilet. The patient has been afebrile. Denies any chest pain. No abdominal pain. No nausea or vomiting. She feels her shortness of breath may be improving slightly. PHYSICAL EXAMINATION: Temperature 99, pulse 94, respiration 24, blood pressure 115/72, O2 sat 94% on 4 liters nasal cannula. General: The patient is a thin, cachectic female who is awake, alert and oriented. She is using some accessory muscles for respiration, but is able to speak in short phrases. HEENT: Normocephalic, atraumatic. Cachexia noted. Moist mucous membranes. Pupils react to light bilaterally. Neck is supple. No palpable adenopathy and no jugular venous distention (JVD). Cardiovascular: Regular rate and rhythm. Normal S1 and S2 with distant heart sounds and no murmurs appreciated. Respiratory: Diminished breath sounds bilaterally with occasional rhonchi and a few crackles. There is improvement in the previously noted inspiratory squeaks and no wheezes noted. Abdomen: Soft, nontender, nondistended. No palpable hepatomegaly. Extremities: There is no lower extremity edema noted bilaterally. LABORATORY DATA: WBC 11.3, hemoglobin 11.7 and platelets 374. Chemistry: Sodium is 140, potassium 4.4, chloride 96, bicarb 42, BUN 17, creatinine 0.41, glucose 88. Procalcitonin was 0.10. IMAGING: CT of chest without contrast showed chronic severe saccular bronchiectasis throughout all lobes of both lungs bilaterally which is unchanged. There is severe emphysema mostly panacinar and predominately in the mid and lower lung zones which is unchanged. The patient has some focal atelectasis in the superior segment of the right lower lobe and the previously noted nodule in the superior segment of the left lower lobe which was previously measured at 9 mm is now 6 mm and is improving. The previous atelectasis noted adjacent to the nodule has decreased. There are no new infiltrates or pleural effusions. No significant adenopathy noted. ASSESSMENT/PLAN: Ms. Berman is a 53-year female with a past medical history of chronic obstructive pulmonary disease (COPD), bronchiectasis, emphysema predominately in the lower lobes, chronic hypoxemic hypercarbic respiratory failure, obstructive sleep apnea (NANCY) on nasal cannula oxygen supplementation and C-PAP, prior history of sputum positive for Achromobacter status post multiple courses of antibiotics as an outpatient including a four week course of Zosyn. The patient presented with increased shortness of breath and hypoxia as well as increased cough productive of sputum. Acute COPD/bronchiectasis exacerbation with acute on chronic hypoxemic respiratory failure and chronic hypercarbic respiratory failure likely secondary to a viral upper respiratory infection (URI) with a positive rhinovirus on admission. The patient's sputum culture showed yeast-like organisms, but normal nancy. She was treated with Nystatin swish and swallow for the thrush. - Appreciate infectious disease (ID) consult and recommendations. Her repeat procalcitonin today was negative. Therefore, meropenem will be discontinued. The patient will continue to follow up with ID as an outpatient for monitoring as suspect she may still be colonized with some gram-negative organisms in her sputum given her significant bronchiectasis and pulmonary disease. - She had a repeat CT of chest done to follow up the previously noted nodule in her left lower lobe which had been increasing in size. On the repeat CT yesterday, the nodule is improving. The other chronic changes of bronchiectasis and emphysema are unchanged. There are no new infiltrates noted. - The patient has been on BiPap overnight and has improvement in her sleep symptoms and breathing with the BiPap. - The patient had failure of C-PAP and given her hypercarbic respiratory failure she will be changed to BiPap prior to discharge with the settings of 15/6 and a 4 liter per minute O2 bleed and followed up as an outpatient for further adjustments in her settings. - Continue with nasal cannula oxygen supplementation to maintain O2 sat of 88-92%. She may need higher amounts oxygen with exertion. - The patient will be evaluated by physical therapy as she does have some deconditioning. She likely would benefit from pulmonary rehab given her chronic lung disease and deconditioning. - Continue with pulmonary toilet with oral Mucomyst and Xopenex nebulizers with Acapella device. The patient was started on a percussion vest yesterday which she tolerated well and will continue for pulmonary toilet. - Continue with home inhalers. - Continue prednisone 40 mg. Can likely taper in the next day to 30 mg and would taper by 10 mg every 3-4 days for a slow taper. - Continue with theophylline. - Continue with nutritional supplementation given her pulmonary cachexia. The patient was asking about referral for possible medical marijuana which may help with some of her appetite. Deep vein thrombosis (DVT) prophylaxis. Thromboembolic deterrent stockings (TEDS) and sequential compression devices (SCDS). Code status: DO NOT RESUSCITATE/DO NOT INTUBATE (DNR/DNI). The patient may benefit from a palliative evaluation for symptom management including her pulmonary cachexia. She was asking about hospice. Although patient does not feel she is ready for hospice currently, she would like to know about options in the future if she decides to go that route.
[2018-12-09] MEDS: THEOPHYLLINE 300 MG PO SCH (15:02)
[2018-12-09] MEDS: CETIRIZINE (ZyrTEC) 10 MG TAB PO SCH (20:12)
[2018-12-09] MEDS: MAGNESIUM OXIDE 400 MG TAB (MAG-OX) PO SCH (20:12)
--- NOTE | 2018-12-09 21:22 | IPN ---
DATE: 12/09/2018 Melisa seems to be doing better. She still has a very productive cough productive of yellow-greenish phlegm. She has no nausea, vomiting, or diarrhea. She is being transferred to [facility] with oxygen monitoring. PHYSICAL EXAMINATION: Temperature is 98.1, pulse 119, respirations 22, blood pressure 125/65, oxygen saturation 92% on 4 liters nasal cannula. HEART: Normal S1, S2, tachycardiac. LUNGS: Decreased breath sounds bilaterally with expiratory wheezes. ABDOMEN: Soft, nontender. No hepatosplenomegaly. EXTREMITIES: No edema. Oropharynx with no thrush. LABORATORY DATA: White count 11.3, hemoglobin 11.7, hematocrit 38.8, platelets 374. Sodium 140, potassium 4.4, chloride 96, bicarbonate 42, BUN 17, creatinine 0.41, glucose 88, calcium 9.1. ABG: A pH of 7.397, pCO2 of 70, pO2 of 87, oxygen saturation 96% on room air. IMPRESSION: 1. Acute bronchiectatic exacerbation due to viral illness with human rhinovirus/enterovirus. Sputum culture was negative. The patient received 5 days of meropenem, which was discontinued, as her procalcitonin is now 0.01. 2. Pulmonary cachexia. The patient was encouraged to eat throughout the day, drink three Ensures a day, and she would like a legal marijuana prescription, so outpatient referral could be done to Dr. Connelly. PLAN: Consider using colistin neb every other month to decrease gram-negative colonization and exacerbation of bronchiectasis. This was denied by her insurance but possibly could try another prior authorization and see if she can tolerate it in the hospital. SHEELA
[2018-12-10] VITALS (9 sets, daily range): BP systolic 111–136; BP diastolic 66–74; O2SAT 96–98
[2018-12-10] MEDS: LEVALBUTEROL 1.25 MG/0.5 ML CONCENTRATE NEB INH SCH ×6 (03:56→23:19)
[2018-12-10 04:49] LABS: HEMATOCRIT 39.3 % (36.0-47.0); MEAN CORPUSCULAR HEMOGLOBIN 27.7 pg (27.0-33.0); MEAN CORPUSCULAR HGB CONC 30.5 g/dl (32.0-36.5); MEAN CORPUSCULAR VOLUME 90.8 fl (80.0-96.0); PLATELET COUNT, AUTOMATED 359 10^3/uL (150-450); RED BLOOD COUNT 4.33 10^6/uL (4.00-5.40); WHITE BLOOD COUNT 12.1 10^3/uL (4.0-10.0)
[2018-12-10 05:09] LABS: BLOOD UREA NITROGEN 17 MG/DL (7-18); CALCIUM LEVEL 8.7 MG/DL (8.5-10.1); CARBON DIOXIDE LEVEL 42 MEQ/L (21-32); CHLORIDE LEVEL 97 MEQ/L (98-107); CREATININE FOR GFR 0.43 MG/DL (0.55-1.30); GLOMERULAR FILTRATION RATE > 60.0 (>51); GLUCOSE, FASTING 94 MG/DL (70-100); SODIUM LEVEL 141 MEQ/L (136-145)
[2018-12-10] MEDS: N ACETYL CYSTEINE PO SCH ×2 (08:23→21:14)
[2018-12-10] MEDS: LACTOBACILLUS ACIDOPHILUS CAP (BACID) PO SCH (08:24)
[2018-12-10] MEDS: MULTIVITAMINS/MINERALS THERAP 1 TAB PO SCH (08:24)
[2018-12-10] MEDS: predniSONE 10 MG TAB PO SCH (08:24)
[2018-12-10] MEDS: NYSTATIN 500,000 U/5 ML SUSP UDC SS SCH ×4 (08:24→21:14)
[2018-12-10] MEDS: BREO ELLIPTA INH SCH (08:53)
[2018-12-10] MEDS: INCRUSE ELLIPTA 62.5MCG (PATIENT'S OWN MED) INH SCH (08:53)
[2018-12-10] MEDS: THEOPHYLLINE PO SCH (09:00)
--- NOTE | 2018-12-10 09:04 | IPNPDOC ---
Subjective Date Seen The patient was seen on 12/10/18. Subjective Chief Complaint/HPI COPD/bronchiectasis exacerbation Events since last encounter s/p meeting with hospice yesterday. Patient has opted for palliative care. Denies c/o. See pulm and ID notes for recommendations/progress. Constitutional: Denies: Chills, Fever, Night Sweats Pulmonary: Reports: Dyspnea, Cough Cardiovascular: Denies: Chest Pain, Palpitations, Orthopnea, Paroxysmal Noc. Dyspnea, Lt Headedness Gastrointestinal: Denies: Nausea, Vomiting, Abdominal Pain, Diarrhea, Constipation Genitourinary: Denies: Dysuria, Frequency, Incontinence, Retention Objective Physical Examination General Exam: Positive: Alert, Cooperative, Mild Distress, Other (cachectic and chronically ill appearing); Negative: No Acute Distress Eye Exam: Positive: PERRLA, EOMI; Negative: Sclera icteric ENT Exam: Positive: Atraumatic, Mucous membr. moist/pink, Pharynx Normal Neck Exam: Positive: Supple; Negative: JVD, thyromegaly, Lymphadenopathy Chest Exam: Positive: Rhonchi (clears with cough), Diminished; Negative: Wheezing Heart Exam: Positive: Rate Normal, Regular Rhythm, Normal S1, Normal S2; Negative: Gallops, Murmurs, Rubs Abdomen Exam: Positive: Normal bowel sounds, Soft, Other; Negative: Tenderness, Hepatospenomegaly Extremity Exam: Positive: Normal pulses; Negative: Clubbing, Cyanosis, Edema, Tenderness, Swelling Neuro Exam: Positive: Normal Gait, Normal Speech, Strength at 5/5 X4 ext, Sensation Intact, Cranial Nerves 3-12 NL Psych Exam: Positive: Mental status NL, Mood NL, Oriented x 3 Assessment /Plan Problems (1) DNR (do not resuscitate) Problem Text: 12/09/18: Hospice meeting today. Reviewed goals with patient today. I feel she may be more palliative care appropriate based on her goals. Will re-eval post Hospice meeting. 12/08/18: Hospice consult pending. Spent time reviewing hospice with patient. Advised if decides against hospice, consider palliative care. Patient open to review with hospice on options. 12/07/18 after much consideration and dw family/friends, patient elects for DNR/DNI status and requests Hospice consult. MOLST completed. She still would like hospital rx c IVF, IV abx if needed and is unsure re parental nutrition. (2) Bronchiectasis Status: Acute Response to Treatment: Improving Problem Text: D5 katelynn 12/10/18: meropenem DCd in presence of negative procalcitonin, afebrile. rhinovirus on respiratory panel. slow pred wean-currently 40 10/20/18 SCX: REFERENCE TEST ANGELINA Final STACIA Organism 1 ACHROMOBACTER XYLOSOXIDANS Susceptibility guidelines for Achromobacter spp. and Alcaligenes spp. have not been established. With the exception of Piperacillin and Ticarcillin - clavulanic acid, susceptibilities are unpredictable. Testing performed at reference lab. REF LAB#[id number] 1. ACHROMOBACTER XYLOSOXIDANS RX Route Dose M.I.C. ----- ----- -- ------- PIPERACILLIN/TAZOBACTAM S IV 2.25 gm q6h <=4 (3) Cachexia associated with pulmonary fibrosis Status: Chronic Problem Text: may consider medical marijuana for appetite. (4) Stage 4 very severe COPD by GOLD classification Status: Chronic (5) Chronic respiratory failure with hypoxia and hypercapnia Status: Chronic Problem Text: Plan per Pulmonology: table top Bipap. Slow steroid taper. changed CPAP to BIPAP 14/6 c FiO2 40% at rest Plan/VTE VTE Prophylaxis Ordered?: Yes VTE Exclusion Pharmacological: Patient/Family Refusal Plan Diet: Continue Current, Supplement Activity: Continue Current Therapy: PT, OT VS, I&O, 24H, Fishbone Vital Signs/I&O Vital Signs Date Time Temp Pulse Resp B/P (MAP) Pulse Ox O2 Delivery O2 Flow Rate FiO2 12/10/18 06:00 94 20 94 4.0 12/10/18 04:00 98.0 115/71 (86) 12/10/18 03:56 Nasal Cannula 12/07/18 04:00 40 I&O- Last 24 Hours up to 6 AM 12/10/18 05:59 Intake Total 1200 ml Output Total 2000 ml Balance -800 ml Laboratory Data 24H LABS Laboratory Tests 2 12/10/18 04:28: Nucleated Red Blood Cells % (auto) 0.0, Anion Gap 2L, Glomerular Filtration Rate > 60.0, Blood Urea Nitrogen 17, Creatinine 0.43L, Sodium Level 141, Potassium Level 4.0, Chloride Level 97L, Carbon Dioxide Level 42H, Calcium Level 8.7 CBC/BMP Laboratory Tests 12/10/18 04:28 Red Blood Count 4.33, Mean Corpuscular Volume 90.8, Mean Corpuscular Hemoglobin 27.7, Mean Corpuscular Hemoglobin Concent 30.5 L, Red Cell Distribution Width 14.0, Calcium Level 8.7 Microbiology Microbiology 12/04/18 Respiratory Virus Panel (PCR) (CHRISTOPHER) - Final, Complete Human Rhinovirus/Enterovirus 12/04/18 Gram Stain - Final, Complete 12/04/18 Sputum Culture - Final, Complete Yeast Like Organism 12/04/18 Blood Culture - Final, Complete NO GROWTH AFTER 5 DAYS Sangita Butterfield [employer] Dec 10, 2018 09:04
--- NOTE | 2018-12-10 09:51 | IPNPDOC ---
Text Note Date of Service The patient was seen on 12/10/18. NOTE I saw Aniceto briefly this morning to introduce [facility] to her and explain our mission and how we might be able to help her. I plan to see her either later today or tomorrow with Cosmo Mistry LMSW to determine how we might be most helpful for her VS,Fishbone, I+O VS, Fishbone, I+O Laboratory Tests 12/10/18 04:28 Red Blood Count 4.33, Mean Corpuscular Volume 90.8, Mean Corpuscular Hemoglobin 27.7, Mean Corpuscular Hemoglobin Concent 30.5 L, Red Cell Distribution Width 14.0, Calcium Level 8.7 Vital Signs Date Time Temp Pulse Resp B/P (MAP) Pulse Ox O2 Delivery O2 Flow Rate FiO2 12/10/18 08:00 98.2 105 20 111/68 (82) 93 3.0 12/10/18 03:56 Nasal Cannula 12/07/18 04:00 40 I&O- Last 24 Hours up to 6 AM 12/10/18 06:00 Intake Total 1320 ml Output Total 2000 ml Balance -680 ml Kala CHAVEZ Dec 10, 2018 09:51
--- NOTE | 2018-12-10 10:19 | CCN ---
DATE: 12/10/2018 PULMONARY PROGRESS NOTE: The patient was seen and examined this morning during bedside rounds. The patient denies any fevers or chills yesterday. She feels that her shortness of breath and cough has continued to slowly improve. Has not had any chest pain. No abdominal pain. No nausea or vomiting. The patient has been using her percussion vest in addition to Acapella and oral Mucomyst and nebulizer treatments for pulmonary toilet. The patient was out of bed walking around the room and did notice some dyspnea on exertion. Physical therapy has been by and she is planned to walk with the aid of a rolling walker today. PHYSICAL EXAMINATION: Temperature 98, pulse 94, respirations 20, blood pressure 115/71, oxygen saturation 94% on 4 liters nasal cannula. General: The patient is a thin, cachectic female who is awake, alert and oriented. Is using some accessory muscles for respiration with occasional pursed-lip breathing but is able to speak in short phrases. HEENT: Normocephalic, atraumatic. Cachexia noted. Moist mucous membranes. Pupils reactive to light bilaterally. Neck is supple. No palpable adenopathy and no jugular venous distention (JVD). Cardiovascular: Regular rate rhythm. Normal S1, S2 with distant heart sounds and no murmurs appreciated. Respiratory: Diminished breath sounds bilaterally with occasional rhonchi and crackles. No wheezes or inspiratory squeaks noted. Abdomen is soft, nontender, nondistended. No palpable hepatomegaly. Extremities: There is no lower extremity noted bilaterally. LABORATORY DATA: WBC 12.1, hemoglobin 12.0, platelets 359. Chemistry: Sodium is 141, potassium 4.0, chloride 97, bicarbonate 42, BUN 17, creatinine 0.42, glucose is 94. ASSESSMENT AND PLAN: Ms. Berman is a 53-year-old female with a history of chronic obstructive pulmonary disease (COPD), bronchiectasis, emphysema predominately lower lobes, chronic hypoxemic respiratory failur, and obstructive sleep apnea (NANCY) with chronic hypercarbic respiratory failure on continuous positive airway pressure (CPAP) who presented with increased shortness of breath, hypoxia and cough productive of sputum. Acute COPD/bronchiectasis exacerbation with acute on chronic hypoxemic respiratory failure and chronic hypercarbic respiratory failure likely secondary to a viral upper respiratory infection (URI) with a positive respiratory panel for rhinovirus on this admission. The patient's previous sputum cultures had grown Achromobacter and she had required multiple courses of antibiotics including a 4 week course of Zosyn as an outpatient. Her repeat sputum culture on this admission did not show any organisms besides few yeast and she was treated for thrush. - Appreciate Infectious Disease (ID) consult recommendations. The patient's meropenem was discontinued as her repeat procalcitonin was negative. The patient likely does have some colonization with gram-negative organisms given her significant bronchiectasis and pulmonary disease; however, her sputum culture on admission did not grow any organism. Given her frequent exacerbations however, would consider starting her on inhaled colistin as per ID recommendations if the patient tolerates and if she is able to get insurance approval for the medication. The patient was not able to get approval for it as an outpatient but will attempt while she is admitted to the hospital. - The patient's repeat CT chest done yesterday showed improvement in the previously noted nodule in the left lower lobe. Otherwise, chronic changes of bronchiectasis and emphysema which are unchanged and no new infiltrates noted. - The patient reports her sleep symptoms have been doing better with the bilevel positive airway pressure (BiPAP) which she has been wearing nightly. The patient is currently on settings of 15/6 with a 4 liter oxygen bleed. Will replace the patient's home CPAP with BiPAP with the settings that she is on while inpatient and followup with an outpatient for further adjustments in her settings. - Continue with nasal cannula oxygen supplementation to maintain oxygen saturation of 88-92%. She will need higher amounts of oxygen supplementation with exertion. - Continue with physical therapy evaluation as she does have some deconditioning and would likely benefit from returning to pulmonary rehab given her chronic lung disease and deconditioning. - Continue pulmonary toilet, oral Mucomyst and Xopenex nebulizers with an Acapella device and percussion vest. - Continue with home inhalers. - Continue prednisone with 30 mg and taper by 10 mg every 3-4 days for a slow taper. - Continue with theophylline. - Continue with nutritional supplementation given her pulmonary cachexia. The patient will be referred as an outpatient for possible medical marijuana. Deep venous thrombosis (DVT) prophylaxis: Thromboembolism deterrents (TEDs) and sequential compressive devices (SCDs). Code status: DO NOT RESUSCITATE/DO NOT INTUBATE. The patient may benefit from a palliative evaluation for symptom management of her chronic lung disease.
[2018-12-10] MEDS: ALPRAZolam 0.25 MG TAB PO PRN (15:36)
[2018-12-10] MEDS: THEOPHYLLINE 300 MG PO SCH (15:38)
[2018-12-10] MEDS: guaiFENesin ER 600 MG TAB PO PRN (17:43)
[2018-12-10] MEDS: MAGNESIUM OXIDE 400 MG TAB (MAG-OX) PO SCH (21:14)
[2018-12-10] MEDS: CETIRIZINE (ZyrTEC) 10 MG TAB PO SCH (21:14)
[2018-12-11] MEDS: LEVALBUTEROL 1.25 MG/0.5 ML CONCENTRATE NEB INH SCH ×6 (03:10→22:43)
[2018-12-11 03:14] VITALS: O2SAT 100
[2018-12-11 06:00] VITALS: BP 106/68
[2018-12-11] MEDS: BREO ELLIPTA INH SCH (08:12)
[2018-12-11] MEDS: INCRUSE ELLIPTA 62.5MCG (PATIENT'S OWN MED) INH SCH (08:12)
[2018-12-11] MEDS ORDERED: FLUBLOK(EGG FREE)(QUAD)INFLUENZA VACC 0.5ML SYRINGE (90682)18YRS&OLDER IM ONE (09:00)
--- NOTE | 2018-12-11 09:40 | IPNPDOC ---
Subjective Date Seen The patient was seen on 12/11/18. Subjective Chief Complaint/HPI bronchiectasis Events since last encounter Continues to slowly improve. Using CPT vest 4 times per day. Has started with PT and is utilizing a rolling walker. Pulmonology working on getting patient Bipap within the next few days. Constitutional: Denies: Chills, Fever, Night Sweats Pulmonary: Reports: Dyspnea, Cough Cardiovascular: Denies: Chest Pain, Palpitations, Orthopnea, Paroxysmal Noc. Dyspnea, Lt Headedness Psych: Reports: Mood Normal; Denies: Depression, Memory Issues Objective Physical Examination General Exam: Positive: Alert, Cooperative, Mild Distress, Other (cachectic and chronically ill appearing); Negative: No Acute Distress Eye Exam: Positive: PERRLA, EOMI; Negative: Sclera icteric ENT Exam: Positive: Atraumatic, Mucous membr. moist/pink, Pharynx Normal Neck Exam: Positive: Supple; Negative: JVD, thyromegaly, Lymphadenopathy Chest Exam: Positive: Rhonchi (clears with cough), Diminished; Negative: Wheezing Heart Exam: Positive: Rate Normal, Regular Rhythm, Normal S1, Normal S2; Negative: Gallops, Murmurs, Rubs Abdomen Exam: Positive: Normal bowel sounds, Soft, Other; Negative: Tenderness, Hepatospenomegaly Extremity Exam: Positive: Normal pulses; Negative: Clubbing, Cyanosis, Edema, Tenderness, Swelling Neuro Exam: Positive: Normal Gait, Normal Speech, Strength at 5/5 X4 ext, Sensation Intact, Cranial Nerves 3-12 NL Psych Exam: Positive: Mental status NL, Mood NL, Oriented x 3 Assessment /Plan Problems (1) DNR (do not resuscitate) Problem Text: 12/10/2018: Palliative care consult placed. Can f/u with them outpatient 12/09/18: Hospice meeting today. Reviewed goals with patient today. I feel she may be more palliative care appropriate based on her goals. Will re-eval post Hospice meeting. 12/08/18: Hospice consult pending. Spent time reviewing hospice with patient. Advised if decides against hospice, consider palliative care. Patient open to review with hospice on options. 12/07/18 after much consideration and dw family/friends, patient elects for DNR/DNI status and requests Hospice consult. MOLST completed. She still would like hospital rx c IVF, IV abx if needed and is unsure re parental nutrition. (2) Bronchiectasis Status: Acute Response to Treatment: Improving Problem Text: 12/11/2018: Once table top bipap is received and patient is stable, can be DC'd home. Will need Pulmonary rehabs once ready. would benefit from Home health and PT in the home for strengthening/exertion if not ready for pulmonary rehab. 12/10/18: meropenem DCd in presence of negative procalcitonin, afebrile. rhinovirus on respiratory panel. slow pred wean-currently 40 10/20/18 SCX: REFERENCE TEST [facility] Organism 1 ACHROMOBACTER XYLOSOXIDANS Susceptibility guidelines for Achromobacter spp. and Alcaligenes spp. have not been established. With the exception of Piperacillin and Ticarcillin - clavulanic acid, susceptibilities are unpredictable. Testing performed at reference lab. REF LAB#[id number] 1. ACHROMOBACTER XYLOSOXIDANS RX Route Dose M.I.C. ----- ----- -- ------- PIPERACILLIN/TAZOBACTAM S IV 2.25 gm q6h <=4 (3) Cachexia associated with pulmonary fibrosis Status: Chronic Problem Text: may consider medical marijuana for appetite. (4) Stage 4 very severe COPD by GOLD classification Status: Chronic (5) Chronic respiratory failure with hypoxia and hypercapnia Status: Chronic Problem Text: Plan per Pulmonology: table top Bipap. Slow steroid taper. changed CPAP to BIPAP 14/6 c FiO2 40% at rest Plan/VTE VTE Prophylaxis Ordered?: Yes VTE Exclusion Pharmacological: Patient/Family Refusal Plan Diet: Continue Current, Supplement Activity: Continue Current Therapy: PT, OT VS, I&O, 24H, Fishbone Vital Signs/I&O Vital Signs Date Time Temp Pulse Resp B/P (MAP) Pulse Ox O2 Delivery O2 Flow Rate FiO2 12/11/18 06:00 97.4 96 22 106/68 (81) 95 12/11/18 03:14 Nasal Cannula 3.0 12/07/18 04:00 40 I&O- Last 24 Hours up to 6 AM 12/11/18 06:00 Intake Total 2020 ml Balance 2020 ml Laboratory Data Microbiology Microbiology 12/04/18 Respiratory Virus Panel (PCR) (CHRISTOPHER) - Final, Complete Human Rhinovirus/Enterovirus 12/04/18 Gram Stain - Final, Complete 12/04/18 Sputum Culture - Final, Complete Yeast Like Organism 12/04/18 Blood Culture - Final, Complete NO GROWTH AFTER 5 DAYS Sangita Butterfield TREE THINNER Dec 11, 2018 09:40
[2018-12-11] MEDS: LACTOBACILLUS ACIDOPHILUS CAP (BACID) PO SCH (10:11)
[2018-12-11] MEDS: MULTIVITAMINS/MINERALS THERAP 1 TAB PO SCH (10:11)
[2018-12-11] MEDS: N ACETYL CYSTEINE PO SCH ×2 (10:12→21:38)
[2018-12-11] MEDS: THEOPHYLLINE PO SCH (10:13)
[2018-12-11] MEDS: predniSONE 10 MG TAB PO SCH (10:21)
--- NOTE | 2018-12-11 10:26 | IPN ---
DATE OF SERVICE: 12/11/2018 The patient was seen and examined this morning during rounds. The patient continues to report some improvement in her shortness of breath and dyspnea on exertion. She was able to be weaned down on her nasal cannula oxygen supplementation to 3 liters a minute from 4 liters a minute. She has been able to ambulate around the room with the rolling walker and has noted some improvement in her strength and her shortness of breath. She is continuing to use her percussion vest four times a day if possible as well as with her Acapella, oral Mucomyst and nebulizer treatments for pulmonary toilet. She does feel her cough has been improving as well. PHYSICAL EXAMINATION: Temperature 97.4, pulse 96, respirations 22, blood pressure 106/68, O2 sat 95% on 3 liters a minute nasal cannula. General: The patient is a thin, cachectic female who is awake, alert and oriented. She is using some accessory muscles for respiration with occasional pursed-lip breathing, but appears improved and is able to speak in short sentences. HEENT: Normocephalic, atraumatic. Cachexia noted. Moist mucous membranes. Pupils react to light bilaterally. Neck is supple. No palpable adenopathy and no jugular venous distention (JVD). Cardiovascular: Regular rate and rhythm. Normal S1 and S2 with distant heart sounds. No murmurs appreciated. Respiratory: Decreased breath sounds bilaterally with occasional rhonchi and crackles. No wheezes or inspiratory squeaks noted. Abdomen: Soft, nontender, nondistended. No palpable hepatomegaly. Extremities: There is no lower extremity edema noted bilaterally. LABORATORY DATA: WBC 12.1, hemoglobin 12.0, platelets 259. Chemistry: Sodium is 141, potassium 4.0, chloride 97, bicarb 42, BUN 17, creatinine 0.43, glucose is 94. ASSESSMENT AND PLAN: Ms. Berman is a 53-year-old female with a history of chronic obstructive pulmonary disease (COPD), bronchiectasis, emphysema predominately in the lower lobes, chronic hypoxemic respiratory failure and obstructive sleep apnea (NANCY) with chronic hypercarbic respiratory failure on C-PAP at home who presented with increased shortness breath, hypoxia and cough productive of sputum. Acute COPD/bronchiectasis exacerbation with acute on chronic hypoxemic respiratory failure and chronic hypercarbic respiratory failure likely secondary to viral upper respiratory infection (URI) with a positive respiratory panel for rhinovirus on this admission. The patient's previous sputum cultures had grown Achromobacter and she had been treated with multiple course of antibiotics as an outpatient including a 4-week course of Zosyn. Her sputum culture on this admission did not show any organisms besides a few yeast and she was treated with thrush with Nystatin. - Appreciate infectious disease (ID) consult and recommendations. The patient has completed a course of meropenem. Repeat procalcitonin was negative. Would followup with ID recommendations about starting her on inhaled colistin given her frequent exacerbations and likely some colonization of gram-negative organisms in her sputum despite the negative culture on this admission. The patient was unable to get insurance approval for the medication as an outpatient. but would see if she is able to get it approved while admitted and for discharge. - The patient's repeat CT chest done on this admission shows improvement in the previously noted nodule in the superior segment of the left lower lobe. She does not require any further imaging to follow up the nodule. Otherwise, there are chronic changes noted of bronchiectasis and emphysema which were unchanged and there are no new infiltrates or nodules noted. - The patient has been doing well with tabletop BiPap. Will change her outpatient C-PAP to BiPap with a setting of 15/6 with a 4 liters oxygen bleed. The patient has been ordered for the home BiPap and is pending the insurance approval and the new machine from her home care company. She can followup with pulmonary as an outpatient for further adjustments in her settings if needed. - Continue with nasal cannula oxygen supplementation and wean to maintain O2 sat of 88-92%. She will need higher amounts of oxygen supplementation with exertion. - Will followup with physical therapy evaluation and recommendations about when she may return to pulmonary rehabilitation as an outpatient which she would benefit from given her chronic lung disease and deconditioning. - Continue pulmonary toilet. Discussed with the patient the importance of using her home percussion vest as well as continuing with her Acapella, oral Mucomyst and Xopenex nebulizers at home. - Continue with home inhalers. - Continue with prednisone with 30 mg and taper by 10 mg until Saturday and then would taper to 20 mg on Saturday for 4 days before decreasing to 10mg for another 4 days and then off. - Continue with theophylline. - Continue with nutritional supplementation given her pulmonary cachexia. Deep vein thrombosis (DVT) prophylaxis. Thromboembolic deterrent stockings (TEDS) and sequential compression devices (SCDS). Code Status: DO NOT RESUSCITATE/DO NOT INTUBATE (DNR/DNI). Will followup with palliative care evaluation and recommendations. The patient will followup with Dr. Page as an outpatient. She does have an appointment already scheduled for 12/16/2018. Please do not hesitate to call if any further questions or concerns [email or web address]
[2018-12-11 14:00] VITALS: BP 114/83
[2018-12-11] MEDS: guaiFENesin ER 600 MG TAB PO PRN (14:49)
[2018-12-11] MEDS: THEOPHYLLINE 300 MG PO SCH (14:49)
[2018-12-11] MEDS: ACETAMINOPHEN TAB 650MG DOSE (2X325MG) PO PRN (14:50)
[2018-12-11] MEDS: ALPRAZolam 0.25 MG TAB PO PRN (14:50)
[2018-12-11 20:00] VITALS: BP 128/86
--- NOTE | 2018-12-11 20:05 | IPN ---
DATE: 12/09/2018 Melisa seems to be doing fairly well. Her cough has improved. She is on prednisone 30 mg daily today. She is stronger. She got up and showered. LABORATORY DATA White count is 12.1, hemoglobin 12, hematocrit 39.3, platelets 359. Sodium 141, potassium 4, chloride 97, bicarb 42, BUN 17, creatinine 0.43, glucose 94, calcium 8.7. Procalcitonin 0.06. PHYSICAL EXAMINATION: Temperature is 98.8, pulse 170, respirations 24, O2 sat 93-100% on 3 liters nasal cannula. Lungs: Diffuse exterior wheezes bilaterally. Diminished air entry. Heart: Normal S1, S2, tachycardiac. No murmurs appreciated. Abdomen: Soft, nontender. Extremities: No edema. IMPRESSION COPD / bronchiectasis exacerbation from viral illness. The patient's sputum culture was negative. I have reviewed her previous cultures. She has not had Pseudomonas colonization since 2009. After that she had Haemophilus influenza and pneumococcus and most recent Achromobacter xylosoxidans which was eradicated by four weeks of IV Zosyn. PLAN Will continue to monitor the patient closely. Colistin was denied by her outpatient insurance and therefore I am reluctant to try it as an inpatient. At this point I would hold off on any antibiotics and send another sputum with her next exacerbation. From an infectious disease standpoint, the patient is ready for discharge in the next 1-2 days. SHEELA
[2018-12-11] MEDS: CETIRIZINE (ZyrTEC) 10 MG TAB PO SCH (21:38)
[2018-12-11] MEDS: MAGNESIUM OXIDE 400 MG TAB (MAG-OX) PO SCH (21:38)
[2018-12-12] MEDS: LEVALBUTEROL 1.25 MG/0.5 ML CONCENTRATE NEB INH SCH ×5 (02:43→20:19)
[2018-12-12 06:00] VITALS: BP 100/65
[2018-12-12] MEDS: BREO ELLIPTA INH SCH (07:42)
[2018-12-12] MEDS: INCRUSE ELLIPTA 62.5MCG (PATIENT'S OWN MED) INH SCH (07:42)
[2018-12-12] MEDS: predniSONE 10 MG TAB PO SCH (08:32)
[2018-12-12] MEDS: N ACETYL CYSTEINE PO SCH ×2 (08:32→21:42)
[2018-12-12] MEDS: LACTOBACILLUS ACIDOPHILUS CAP (BACID) PO SCH (08:32)
[2018-12-12] MEDS: MULTIVITAMINS/MINERALS THERAP 1 TAB PO SCH (08:32)
[2018-12-12] MEDS: THEOPHYLLINE PO SCH (08:33)
--- NOTE | 2018-12-12 09:17 | IPNPDOC ---
Subjective Date Seen The patient was seen on 12/12/18. Subjective Chief Complaint/HPI Pt this morning is without new concerns. She is feeling much better. She has decided to transition to Palliative Care at d/ and has met with the care team. General: Reports: Fatigue Constitutional: Denies: Chills, Fever ENT: Denies: Head Aches Pulmonary: Reports: Dyspnea, Cough Cardiovascular: Denies: Chest Pain, Palpitations Gastrointestinal: Denies: Nausea, Vomiting Neurological: Reports: Weakness Psych: Reports: Anxiety Objective Physical Examination General Exam: Positive: Alert, Cooperative, No Acute Distress, Other (cachectic and chronically ill appearing) ENT Exam: Positive: Mucous membr. moist/pink Neck Exam: Positive: Supple Chest Exam: Positive: Diminished; Negative: Rhonchi, Wheezing Heart Exam: Positive: Rate Normal, Regular Rhythm, Normal S1, Normal S2; Negative: Gallops, Murmurs, Rubs Abdomen Exam: Positive: Normal bowel sounds, Soft, Other; Negative: Tenderness, Hepatospenomegaly Extremity Exam: Negative: Edema Neuro Exam: Positive: Normal Speech Psych Exam: Positive: Mental status NL, Mood NL, Oriented x 3 Assessment /Plan Problems (1) Bronchiectasis Status: Acute Response to Treatment: Improving Discussed With: Nurse, Patient Problem Text: 12/12 pt cont to show improvement in her resp status, has opted to transition to Palliative Care at d/. She would like to plan for a D/c on 12/13. 12/11/2018: Once table top bipap is received and patient is stable, can be DC'd home. Will need Pulmonary rehabs once ready. would benefit from Home health and PT in the home for strengthening/exertion if not ready for pulmonary rehab. 12/10/18: meropenem DCd in presence of negative procalcitonin, afebrile. rhinovirus on respiratory panel. slow pred wean-currently 40 10/20/18 SCX: REFERENCE TEST [facility] Organism 1 ACHROMOBACTER XYLOSOXIDANS Susceptibility guidelines for Achromobacter spp. and Alcaligenes spp. have not been established. With the exception of Piperacillin and Ticarcillin - clavulanic acid, susceptibilities are unpredictable. Testing performed at reference lab. REF LAB#[id number] 1. ACHROMOBACTER XYLOSOXIDANS RX Route Dose M.I.C. ----- ----- --------- PIPERACILLIN/TAZOBACTAM S IV 2.25 gm q6h <=4 (2) DNR (do not resuscitate) Problem Text: 12/10/2018: Palliative care consult placed. Can f/u with them outpatient 12/09/18: Hospice meeting today. Reviewed goals with patient today. I feel she may be more palliative care appropriate based on her goals. Will re-eval post Hospice meeting. 12/08/18: Hospice consult pending. Spent time reviewing hospice with patient. Advised if decides against hospice, consider palliative care. Patient open to review with hospice on options. 12/07/18 after much consideration and dw family/friends, patient elects for DNR/DNI status and requests Hospice consult. MOLST completed. She still would like hospital rx c IVF, IV abx if needed and is unsure re parental nutrition. (3) Cachexia associated with pulmonary fibrosis Status: Chronic Problem Text: may consider medical marijuana for appetite. (4) Stage 4 very severe COPD by GOLD classification Status: Chronic (5) Chronic respiratory failure with hypoxia and hypercapnia Status: Chronic Problem Text: Plan per Pulmonology: table top Bipap. Slow steroid taper. changed CPAP to BIPAP 14/6 c FiO2 40% at rest Plan/VTE VTE Prophylaxis Ordered?: Yes VTE Exclusion Pharmacological: Patient/Family Refusal Plan Diet: Continue Current, Supplement Activity: Continue Current Therapy: PT, OT VS, I&O, 24H, Fishbone Vital Signs/I&O Vital Signs Date Time Temp Pulse Resp B/P (MAP) Pulse Ox O2 Delivery O2 Flow Rate FiO2 12/12/18 06:00 98.1 93 17 100/65 (77) 96 12/11/18 21:00 3.0 12/11/18 03:14 Nasal Cannula 12/07/18 04:00 40 I&O- Last 24 Hours up to 6 AM 12/12/18 05:59 Intake Total 1590 ml Output Total 800 ml Balance 790 ml Laboratory Data Microbiology Microbiology 12/04/18 Respiratory Virus Panel (PCR) (CHRISTOPHER) - Final, Complete Human Rhinovirus/Enterovirus 12/04/18 Gram Stain - Final, Complete 12/04/18 Sputum Culture - Final, Complete Yeast Like Organism 12/04/18 Blood Culture - Final, Complete NO GROWTH AFTER 5 DAYS LAISHA FORBES PA-C Dec 12, 2018 09:17
[2018-12-12] MEDS: ALPRAZolam 0.25 MG TAB PO PRN (14:13)
[2018-12-12] MEDS: THEOPHYLLINE 300 MG PO SCH (14:13)
[2018-12-12 16:00] VITALS: BP 128/75
[2018-12-12 20:19] VITALS: O2SAT 94
[2018-12-12] MEDS: MAGNESIUM OXIDE 400 MG TAB (MAG-OX) PO SCH (21:41)
[2018-12-12] MEDS: CETIRIZINE (ZyrTEC) 10 MG TAB PO SCH (21:41)
[2018-12-12 22:00] VITALS: BP 130/72
[2018-12-13] MEDS: LEVALBUTEROL 1.25 MG/0.5 ML CONCENTRATE NEB INH SCH ×5 (04:00→15:37)
[2018-12-13 06:00] VITALS: BP 108/59
[2018-12-13] MEDS: INCRUSE ELLIPTA 62.5MCG (PATIENT'S OWN MED) INH SCH (07:38)
[2018-12-13] MEDS: BREO ELLIPTA INH SCH (07:38)
[2018-12-13 07:39] VITALS: O2SAT 97
[2018-12-13] MEDS: LACTOBACILLUS ACIDOPHILUS CAP (BACID) PO SCH (08:57)
[2018-12-13] MEDS: N ACETYL CYSTEINE PO SCH (08:57)
[2018-12-13] MEDS: THEOPHYLLINE PO SCH (08:57)
[2018-12-13] MEDS: MULTIVITAMINS/MINERALS THERAP 1 TAB PO SCH (08:57)
[2018-12-13] MEDS: predniSONE 10 MG TAB PO SCH (08:57)
[2018-12-13] MEDS: guaiFENesin ER 600 MG TAB PO PRN (10:26)
[2018-12-13] MEDS: ALPRAZolam 0.25 MG TAB PO PRN (10:26)
--- NOTE | 2018-12-13 11:47 | DS.PDOC ---
Discharge Summary General Date of Admission Dec 04, 2018 at 10:38 Date of Discharge 12/13/18 Primary Care Physician: Frank Hill MD Attending Physician: Curtis Melchor MD Specialist/Consultants Involve: JONATHAN BRIAN MD Specialist/Consultants Involve Dr. Jude Schneider, infectious disease Discharge Summary ADMITTING DIAGNOSES: 1. Hypoxemic hypercarbic respiratory failure secondary to ongoing URI and presumed superimposed bacterial pneumonia on chronic hypoxemic hypercarbic respiratory failure. 2. Sepsis. 3. Cachexia. 4. Anxiety. 5. Allergic rhinitis. DISCHARGE DIAGNOSES: 1. Bronchiectasis. 2. Gold stage IV COPD. 3. Chronic respiratory failure with hypoxemia and hypercarbia. 4. Cachexia associated with pulmonary fibrosis. 5. DNR status. PROCEDURES PERFORMED DURING STAY: None. ADMISSION HISTORY: Ms. Berman was a direct admission per Dr. Schneider's recommendation from clinic after being seen in clinic where she had a fever to 101, and had worsening hypoxemia to mid 80s on baseline 2L. Please see the admission history and physical for the remaining details. HOSPITAL COURSE: Ms. Berman was admitted to the hospital with an acute exacerbation of her bronchiectasis that seem to be related to a virus. While here she expressed significant discouragement that her respiratory status continued to decline. She dealt with the fact that she is ready for palliative care but her family was not. She received careful counseling from the palliative care nurse as well as the family medicine team and her infectious disease physician and hand funnel coater. In the end she decided that she would like to be discharged home receiving palliative care services. DISCHARGE CONDITION: Stable. FOLLOW-UP: Prior to discharge an appointment was scheduled with AVTAR Lira on 12/12/18 at 11:00 . DIET: Respiratory/lower carbohydrate. ACTIVITY: As tolerated. DISCHARGE MEDICATIONS: Please see below. ALLERGIES: Please see below. LABORATORY DATA: Please see below. IMAGING: X-ray, CT of the chest DISCHARGE INSTRUCTIONS: 1. Follow-up with AVTAR Lira on December 22. 2. Dr. Page as scheduled on December 16. 3. Please call the [place] palliative care office on Saturday for an appointment with them. TIME SPENT ON DISCHARGE: Greater than 20 minutes. Vital Signs/I&Os Vital Signs Date Time Temp Pulse Resp B/P (MAP) Pulse Ox O2 Delivery O2 Flow Rate FiO2 12/13/18 08:45 3.0 12/13/18 07:39 97 Nasal Cannula 12/13/18 06:00 97.8 77 20 108/59 (75) 12/07/18 04:00 40 I&O- Last 24 Hours up to 6 AM 12/13/18 05:59 Intake Total 2540 ml Output Total 800 ml Balance 1740 ml Microbiology Microbiology 12/04/18 Respiratory Virus Panel (PCR) (CHRISTOPHER) - Final, Complete Human Rhinovirus/Enterovirus 12/04/18 Gram Stain - Final, Complete 12/04/18 Sputum Culture - Final, Complete Yeast Like Organism 12/04/18 Blood Culture - Final, Complete NO GROWTH AFTER 5 DAYS Discharge Medications Scheduled Acetylcysteine (Nac) 600 Mg Capsule, 600 MG PO BID, (Reported) Cetirizine HCl (Cetirizine HCl) 10 Mg Tablet, 10 MG PO QHS, (Reported) Fluticasone/Vilanterol (Breo Ellipta 200-25 Mcg INH) 1 Inh Inh, 1 PUFF INH DAILY, (Reported) L.acidoph/L.bulg/B.bif/S.therm (Bacid Caplet) 1 Each Tablet, 1 TAB PO DAILY, (Reported) Magnesium Oxide (Magnesium) 400 Mg Capsule, 400 MG PO QHS, (Reported) Multivitamin (Multivitamins) 1 Each Capsule, 1 CAP PO DAILY, (Reported) TAKES AT NOON Theophylline Anhydrous (Theophylline Anhydrous) 300 Mg Tab.er.12h, 300 MG PO QPM, (Reported) TAKES AT 1500 Theophylline Anhydrous (Theophylline Anhydrous) 450 Mg Tab.er.12h, 450 MG PO QAM, (Reported) Umeclidinium [place] (Incruse Ellipta) 62.5 Mcg Blst.w.dev, 1 PUFF INH DAILY, (Reported) [L-Theanine] , 200 MG PO QHS, (Reported) [Nettle Axis] , 500 MG PO QHS, (Reported) Scheduled PRN Acetaminophen (Acetaminophen) 325 Mg Tablet, 650 MG PO QID PRN for PAIN, (Reported) Albuterol Sulfate (Ventolin Hfa) 18 Gm Hfa.aer.ad, 2 PUFF INH Q4H PRN for SHORTNESS OF BREATH, (Reported) Alprazolam (Alprazolam) 0.25 Mg Tablet, 0.25 MG PO BID PRN for ANXIETY, (Reported) Guaifenesin (Mucinex) 600 Mg Tab.er.12h, 600 MG PO BID PRN for COUGH, (Reported) Ibuprofen (Ibuprofen) 600 Mg Tablet, 600 MG PO TID PRN for PAIN, (Reported) Levalbuterol HCl (Levalbuterol HCl) 0.63 Mg/3 Ml Vial.neb, 0.63 MG INH TID PRN for SHORTNESS OF BREATH, (Reported) [Passion Flower] , 1 TAB PO DAILY PRN for ANXIETY, (Reported) Allergies Coded Allergies: Cephalosporins (Verified Allergy, Intermediate, hives, 10/20/18) azithromycin (Verified Allergy, Mild, RASH, 10/20/18) Penicillins (Verified Allergy, Unknown, 07/29/18) gluten (Verified Allergy, Unknown, 07/29/18) soy (Verified Allergy, Unknown, 07/29/18) mirtazapine (Verified Adverse Reaction, Unknown, HOOKER, 10/20/18) Curtis Melchor MD Dec 13, 2018 11:47
[2018-12-13] MEDS ORDERED: PRED10PA PO (12:10)
[2018-12-15] MEDS ORDERED: predniSONE 20 MG TAB PO SCH (09:00)
== END 2018-12-13 15:30 | disposition home or self-care (01) | DRG 133 ==
LOC: M MSPAV 10:38 → M ICU 15:45 → M MSPAV 12-10 16:51
PROVIDERS: ADMIT Internal Medicine; ATTEND Family Medicine
DX: J96.22 Acute and chronic respiratory failure with hypercapnia (principal); R64 Cachexia; B37.0 Candidal stomatitis; E88.01 Alpha-1-antitrypsin deficiency; J44.1 Chronic obstructive pulmonary disease with (acute) exacerbation; J84.10 Pulmonary fibrosis, unspecified; B34.8 Other viral infections of unspecified site; Z79.899 Other long term (current) drug therapy; Z66 Do not resuscitate; Z88.8 Allergy status to other drugs, medicaments and biological substances; Z88.0 Allergy status to penicillin; F41.9 Anxiety disorder, unspecified; J96.21 Acute and chronic respiratory failure with hypoxia

== ENCOUNTER 2019-01-05 14:43 | Outpatient (RCR) | payer BC, MEDICARE ==
[~2019-01-05 14:43] MED LIST changes: +BACITAB PO; +PRED10PA PO
== END 2019-01-08 ==
LOC: M PR 14:43
PROVIDERS: ATTEND Internal Medicine Pulmonary Disease
DX: J43.1 Panlobular emphysema (principal)

== ENCOUNTER → 2019-01-20 | Outpatient (REF) | payer BC | LOC: M LAB REF 17:05 | PROVIDERS: ATTEND Internal Medicine Pulmonary Disease | DX: J44.9 Chronic obstructive pulmonary disease, unspecified (principal) ==

== ENCOUNTER 2019-02-02 14:18 | Outpatient (RCR) | payer BC ==
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
== END 2019-02-07 ==
LOC: M PR 14:18
PROVIDERS: ATTEND Internal Medicine Pulmonary Disease
DX: J43.1 Panlobular emphysema (principal)

== ENCOUNTER 2019-03-05 14:30 | Outpatient (RCR) | payer BC | END 2019-03-10 | LOC: M PR 14:30 | PROVIDERS: ATTEND Internal Medicine Pulmonary Disease | DX: J43.1 Panlobular emphysema (principal) ==

== ENCOUNTER 2019-04-06 15:29 | Outpatient (RCR) | payer BC | END 2019-04-10 | LOC: M PR 15:29 | PROVIDERS: ATTEND Internal Medicine Pulmonary Disease | DX: J43.1 Panlobular emphysema (principal) ==

== ENCOUNTER → 2019-04-08 | Outpatient (REF) | payer BC | LOC: M LAB REF 15:00 | PROVIDERS: ATTEND Internal Medicine Pulmonary Disease | DX: J44.9 Chronic obstructive pulmonary disease, unspecified (principal) ==

== ENCOUNTER → 2019-04-21 | Outpatient (REF) | payer BC ==
[~2019-04-21] MED LIST changes: +PRED20TA PO; +RA B1TAB2 PO; +SULF400T14 PO
== END ==
LOC: M LAB REF 16:53
PROVIDERS: ATTEND Internal Medicine Pulmonary Disease
DX: J44.9 Chronic obstructive pulmonary disease, unspecified (principal)

== ENCOUNTER 2019-04-27 11:37 | Inpatient (IN) | payer BC, MEDICARE ==
[~2019-04-27] VITALS: Ht 167.6 cm; Wt 50.0 kg
[~2019-04-27 11:37] MED LIST changes: -PRED20TA PO; -RA B1TAB2 PO; -SULF400T14 PO
[2019-04-27 12:16] LABS: ABG BASE EXCESS 5.4 (-2.0-2.0); ABG HCO3 32.1 MEQ/L (22.0-26.0); ABG O2 SATURATION 93.5 % (95.0-99.0); ABG PARTIAL PRESSURE CO2 54.8 mmHg (35.0-45.0); ABG PARTIAL PRESSURE O2 69.6 mmHg (75.0-100.0); ABG STANDARD HCO3 29.2 MEQ/L (22.0-26.0); ABG TOTAL CO2 33.7 MEQ/L (22.0-29.0); ABG pH (ARTERIAL) 7.385 UNITS (7.350-7.450)
[2019-04-27 12:24] LABS: BASO # 0.1 10^3/uL (0.0-0.2); BASO % 0.4 % (0.0-1.0); EOS # 0.1 10^3/uL (0.0-0.5); EOS % 0.5 % (0.0-3.0); HEMATOCRIT 47.2 % (36.0-47.0); HEMOGLOBIN 14.8 g/dl (12.0-15.5); LYMPH # 1.4 10^3/uL (1.5-5.0); LYMPH % 7.8 % (24.0-44.0); MEAN CORPUSCULAR HEMOGLOBIN 27.9 pg (27.0-33.0); MEAN CORPUSCULAR HGB CONC 31.4 g/dl (32.0-36.5); MEAN CORPUSCULAR VOLUME 89.1 fl (80.0-96.0); MONO # 1.4 10^3/uL (0.0-0.8); MONO % 7.7 % (0.0-5.0); NEUTROPHILS # 15.3 10^3/uL (1.5-8.5); NEUTROPHILS % 83.2 % (36.0-66.0); PLATELET COUNT, AUTOMATED 386 10^3/uL (150-450); WHITE BLOOD COUNT 18.4 10^3/uL (4.0-10.0)
[2019-04-27] MEDS ORDERED: methylPREDNISolone INJ 125 MG/2 ML VIAL (J2930) IV ONE (12:30)
[2019-04-27] MEDS ORDERED: IPRATROPIUM 0.5MG/ALBUTEROL 2.5MG INH SOL UD 3ML (DUONEB)(J7620) NEB PRN (12:30)
--- NOTE | 2019-04-27 12:30 | REP ---
Clinical: Cough and dyspnea. Comparison: 12/04/2018. Findings: Severe COPD/emphysematous disease remain stable. No acute consolidation, effusion, or obvious pneumothorax. Mediastinum and cardiac silhouette stable skeletal structures intact Impression: Severe COPD and emphysematous changes. No acute process identified. Electronically Signed by Steve Minaya MD 04/27/2019 12:21 P
[2019-04-27] MEDS ORDERED: SPIR1CAP INH (12:32)
[2019-04-27] MEDS ORDERED: PRED20TA PO (12:32)
[2019-04-27] MEDS ORDERED: SULF400T14 PO (12:32)
[2019-04-27 13:01] LABS: BLOOD UREA NITROGEN 18 MG/DL (7-18); CALCIUM LEVEL 9.2 MG/DL (8.5-10.1); CARBON DIOXIDE LEVEL 36 MEQ/L (21-32); CHLORIDE LEVEL 99 MEQ/L (98-107); CPK CREATINE PHOSPHOKINASE 80 U/L (26-192); CREATININE FOR GFR 0.51 MG/DL (0.55-1.30); GLOMERULAR FILTRATION RATE > 60.0 (>51); GLUCOSE, FASTING 142 MG/DL (70-100); POTASSIUM SERUM 3.9 MEQ/L (3.5-5.1); SODIUM LEVEL 138 MEQ/L (136-145); THEOPHYLLINE LEVEL 20.9 UG/ML (10.0-20.0); THYROID STIMULATING HORMONE 0.826 uIU/ML (0.358-3.740); TROPONIN I < 0.02 NG/ML (< 0.10)
[2019-04-27] MEDS ORDERED: RA B1TAB2 PO (13:21)
[2019-04-27] MEDS ORDERED: IP6 PO (13:21)
[2019-04-27] MEDS ORDERED: PRED10TA2 PO (13:21)
[2019-04-27] MEDS ORDERED: ALBUTEROL SULFATE 2.5 MG/0.5 ML INH NEB SOLN NEB PRN (14:45)
[2019-04-27] MEDS ORDERED: IBUPROFEN 600 MG TAB PO PRN (15:00)
[2019-04-27 15:45] VITALS: BP 128/63
[2019-04-27] MEDS: IPRATROPIUM 0.5MG/ALBUTEROL 2.5MG INH SOL UD 3ML (DUONEB)(J7620) NEB SCH ×2 (16:05→20:03)
[2019-04-27] MEDS: TRIMETHOPRIM/SULFAMETHOXAZOLE 500 MG in D5W 500 ML IV SCH (16:17)
[2019-04-27] MEDS ORDERED: SLF 3 ML SYR IV PRN (17:15)
[2019-04-27 18:36] LABS: CK-MB VALUE MASS 4.1 NG/ML (<3.6); CPK CREATINE PHOSPHOKINASE 70 U/L (26-192); MB/CK RELATIVE INDEX 5.86 (< OR =4); TROPONIN I < 0.02 NG/ML (< 0.10)
[2019-04-27] MEDS: ALPRAZolam 0.25 MG TAB PO PRN (18:37)
--- NOTE | 2019-04-27 19:44 | ECGEPIP ---
[facility] - ED Test Date: 2019-04-27 Pat Name: SUNNY MULLINS Department: Room: - Gender: Female [employer] Principal: PMO : 1965 Requested By: Carlos Carballo Order Number: [id number] Reading MD: Jacquie Molina Measurements Intervals [place] Rate: 132 P: 85 CO: 125 QRS: 124 QRSD: 70 T: 88 QT: 273 QTc: 405 Interpretive Statements SINUS TACHYCARDIA RIGHT VENTRICULAR HYPERTROPHY SEPTAL MYOCARDIAL INFARCTION, OF INDETERMINATE AGE, CLINICAL CORRELATION WENDIE Electronically Signed on 04-27-2019 19:43:42 EST by Jacquie Molina
[2019-04-27 20:00] VITALS: BP 141/67
[2019-04-27] MEDS: methylPREDNISolone INJ 40 MG/1 ML VIAL (J2920) IV SCH (20:42)
[2019-04-27] MEDS: CETIRIZINE (ZyrTEC) 10 MG TAB PO SCH (20:42)
[2019-04-27] MEDS: N ACETYL CYSTEINE PO SCH (20:42)
[2019-04-27] MEDS: MAGNESIUM OXIDE 400 MG TAB (MAG-OX) PO SCH (20:42)
[2019-04-27] MEDS: HEPARIN SOD (PORCINE) 5000 UNITS/ML VIAL (J1644 PER 1000UNITS) SC SCH (20:43)
[2019-04-27] MEDS: SLF 3 ML SYR IV SCH (20:44)
--- NOTE | 2019-04-27 20:59 | HPE ---
DATE OF ADMISSION: 04/27/2019 TIME: 2 p.m. CHIEF COMPLAINT: Shortness of breath. HISTORY OF PRESENT ILLNESS: Ms. Berman is a 53-year-old female who has a genetic variant of alpha-1 antitrypsin deficiency which has caused her to develop end-stage chronic obstructive pulmonary disease (COPD). She is chronically on three liters of oxygen continuously at home. She follows with Dr. Page of the pulmonary service. She also has severe anxiety. The patient was last hospitalized in November. This past March, on 04/08/2019, the patient had sputum cultures done which grew Stenotrophomonas maltophilia. She was placed on Levaquin, from what she told me, it was not getting any better. A repeat culture was done on 04/21/2019, and this time this grew Stenotrophomonas maltophilia, as well as methicillin-resistant Staphylococcus aureus (MRSA), and a few yeast. She was placed on Bactrim, which she has been on for approximately a week, in addition to burst steroids. She reports feeling increasing shortness of breath with activity and impending doom and worsening anxiety. She denies having any chest discomfort. She came to the emergency room (ER) department today where she was found to be tachypneic with a respiratory rate of 24. Her oxygen saturation was 96% on three liters of nasal cannula. She was afebrile, her temperature was 98.5 and blood pressure was 145/65. Blood gas done in the ER department showed a normal pH with hypercarbia and pCO2 of 54.8, pO2 of 69, with an oxygen saturation of 93%. Her chest x-ray showed no evidence of any acute infiltrate or acute intrapulmonary process. She was noted to have an elevated white blood cell count of 18,000, however she has been on steroids for several weeks. She is complaining of productive cough, but denies having any hematemesis. She has not had any lower extremity swelling, no abdominal pain. The case was discussed with the clinical laboratory aide application release manager who recommended that the patient be admitted to the hospitalist service for further evaluation. ALLERGIES: CEPHALOSPORINS, ZITHROMAX, PENICILLINS, gluten, soy, REMERON. CURRENT HOME MEDICATIONS: - Tylenol 650 every 6 hours as needed for pain - acetylcysteine 600 mg twice a day - Ventolin HFA every 6 hours as needed for shortness of breath - alprazolam 0.25 mg twice a day as needed for anxiety - cetirizine 10 mg nightly - Breo Ellipta one puff daily - guaifenesin 600 mg extended release twice a day as needed - ibuprofen 600 mg three times a day as needed - levalbuterol three times a day as needed for shortness of breath - magnesium oxide 400 mg at bedtime - multivitamin one capsule daily - prednisone 20 mg daily, this was filled on 04/23/2019 and she was prescribed a 5 day course - she has been on Bactrim, which was also filled on 04/23/2019 for a 10 day course single strength one tablet twice a day - theophylline 300 mg in the evening and 450 mg in the morning - Spiriva one capsule daily - vitamin B complex - IP-6 two tablets twice a day - L-theanine 20 mg at bedtime - passionflower one tablet daily as needed for anxiety PAST MEDICAL HISTORY: Includes anxiety, end-stage COPD with genetic variant of alpha-1 antitrypsin deficiency. 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 SURGICAL HISTORY: Notable just for gastric tumor removal as well as a section. SOCIAL HISTORY: She is and lives at home with her . Does not smoke, does not use drugs, does not use alcohol. She is a F[employer]. will be her surrogate decision maker. FAMILY HISTORY: Notable for her dad who from complications of esophageal cancer which became metastatic, mom is in her 90s. REVIEW OF SYSTEMS: 12 systems reviewed, patient otherwise negative except what is mentioned in history of present illness (HPI). PHYSICAL EXAMINATION: The patient's pulse is 125, respiratory rate 26, blood pressure 132/74, oxygen saturation 93% on three liters nasal cannula, temperature is 98.5 degrees Fahrenheit. General: Patient is alert and oriented times three. She is anxious. She is a middle-aged woman who has pulmonary cachexia. Her breathing is slightly tachypneic at this time but she does not appear in any distress, more anxious than anything. Her head is atraumatic. Her pupils are symmetric and reactive to light. No scleral icterus. Oropharynx is clear. No visible thrush. Neck is supple, no jugular venous distention. Trachea is midline. Audible stridor. Lung sounds are appreciated bilaterally. She has some mild end expiratory wheezing. Otherwise, lung sounds are distant and diminished but nothing to suggest infiltrate or pleural effusion. Heart is S1, S2, she is tachycardic, no audible murmurs, rubs, or gallops. Abdomen is scaphoid in appearance, nontender, nondistended with no palpable organomegaly. Extremities without any significant cyanosis, clubbing, or edema. Skin exam is without any rash or jaundice or any cyanosis of her extremities. Neurologic exam: Cranial nerves II-XII are grossly intact without focal neurologic deficits. She has poor muscle bulk. Muscle tone is preserved bilaterally. Strength is symmetric upper and lower extremities in the proximal and distal muscle groups, I would say about 4+/5. RELEVANT LABORATORIES: Chest x-ray shows severe COPD. Blood cultures times two have been drawn and are pending. Respiratory viral panel was negative. Sputum culture and gram stain has been requested. Theophylline level was 20.9. TSH is 0.826. Troponin is less than 0.02. Sodium 138, potassium 3.9, chloride 99, bicarbonate 36, BUN 18, creatinine 0.5, glucose 192, white count 18,000, hemoglobin 14, hematocrit 47, platelet count 386,000. IMPRESSION: 1. Acute on chronic end-stage chronic obstructive pulmonary disease (COPD) exacerbation. 2. Acute on chronic hypoxic hypercarbic respiratory failure secondary to acute on chronic end-stage chronic obstructive pulmonary disease (COPD) exacerbation. 3. Upper respiratory tract infection with methicillin-resistant Staphylococcus aureus (MRSA) as well as Stenotrophomonas maltophilia. 4. Slightly supratherapeutic theophylline level. 5. Severe anxiety. PLAN: Patient will be admitted to the progressive care unit (PCU) to an inpatient status. She will be placed on Solu-Medrol 40 mg IV every 8 hours. We will transition her to IV Bactrim. We will repeat a sputum culture. Pulmonary will be consulted. Patient will be continued on her nebulizers that are formulary at this institution. I am going to hold her theophylline as her levels are slightly elevated today. I can recheck her level in the next 48 hours to see where she is and if she is stable can resume it. We will ask psychiatry to see the patient also to see if there is anything we can optimize for treatment of her anxiety because it is definitely playing a part in this. Patient will be a FULL CODE. She will be continued on her home bilevel positive airway pressure (BiPAP) and placed in contact precautions due to her history of methicillin-resistant Staphylococcus aureus (MRSA).
[2019-04-27] MEDS ORDERED: ALPRAZolam 0.25 MG TAB PO PRN (21:00)
[2019-04-28] VITALS: BP 101/58
[2019-04-28] MEDS: LEVALBUTEROL 1.25 MG/0.5 ML CONCENTRATE NEB INH PRN ×2 (01:59→20:01)
[2019-04-28] MEDS: IPRATROPIUM 0.5MG/ALBUTEROL 2.5MG INH SOL UD 3ML (DUONEB)(J7620) NEB SCH ×4 (01:59→20:00)
[2019-04-28 04:00] VITALS: BP 99/59
[2019-04-28] MEDS: TRIMETHOPRIM/SULFAMETHOXAZOLE 500 MG in D5W 500 ML IV SCH ×2 (04:59→15:52)
[2019-04-28] MEDS: methylPREDNISolone INJ 40 MG/1 ML VIAL (J2920) IV SCH ×3 (04:59→20:56)
[2019-04-28] MEDS: SLF 3 ML SYR IV SCH ×3 (04:59→20:57)
[2019-04-28 05:36] LABS: HEMATOCRIT 38.1 % (36.0-47.0); MEAN CORPUSCULAR HEMOGLOBIN 28.1 pg (27.0-33.0); MEAN CORPUSCULAR HGB CONC 31.5 g/dl (32.0-36.5); MEAN CORPUSCULAR VOLUME 89.2 fl (80.0-96.0); RED BLOOD COUNT 4.27 10^6/uL (4.00-5.40); WHITE BLOOD COUNT 12.1 10^3/uL (4.0-10.0)
[2019-04-28 05:43] LABS: PLATELET COUNT, AUTOMATED 276 10^3/uL (150-450)
[2019-04-28 05:54] LABS: BLOOD UREA NITROGEN 16 MG/DL (7-18); CALCIUM LEVEL 8.7 MG/DL (8.5-10.1); CARBON DIOXIDE LEVEL 35 MEQ/L (21-32); CHLORIDE LEVEL 99 MEQ/L (98-107); CREATININE FOR GFR 0.61 MG/DL (0.55-1.30); GLOMERULAR FILTRATION RATE > 60.0 (>51); GLUCOSE, FASTING 161 MG/DL (70-100); POTASSIUM SERUM 4.3 MEQ/L (3.5-5.1); SODIUM LEVEL 136 MEQ/L (136-145)
[2019-04-28 07:49] VITALS: BP 108/58
[2019-04-28] MEDS: N ACETYL CYSTEINE PO SCH ×2 (08:22→20:56)
[2019-04-28] MEDS: HEPARIN SOD (PORCINE) 5000 UNITS/ML VIAL (J1644 PER 1000UNITS) SC SCH ×2 (08:22→20:56)
[2019-04-28] MEDS: TIOTROPIUM INHALER/CAPSULE (SPIRIVA) INH SCH (08:54)
[2019-04-28] MEDS: BREO ELLIPTA 200MCG/25MCG INH SCH (08:54)
[2019-04-28] MEDS ORDERED: SERTRALINE HCL 25 MG TABLET PO SCH (09:00)
[2019-04-28] MEDS ORDERED: ATORVASTATIN 20 MG TAB PO SCH (09:00)
[2019-04-28] MEDS ORDERED: PANTOPRAZOLE 40MG TAB (PROTONIX) PO SCH (09:00)
[2019-04-28] MEDS ORDERED: lisinopriL 5 MG TAB PO SCH (09:00)
[2019-04-28] MEDS: ALPRAZolam 0.25 MG TAB PO PRN ×2 (09:54→17:27)
[2019-04-28] MEDS: ACETAMINOPHEN TAB 650MG DOSE (2X325MG) PO PRN (09:54)
--- NOTE | 2019-04-28 10:13 | IPNPDOC ---
Subjective Date Seen The patient was seen on 04/28/19. Subjective Chief Complaint/HPI Pt this morning is concerned that she hasnt gotten her sari dose and that this causing her SOB to be worse. She doesn't feel as though she has made any progress since she has been here. She states that she is very immobile at home out of fear of having labored breathing. General: Reports: Fatigue Constitutional: Denies: Chills, Fever Pulmonary: Reports: Dyspnea; Denies: Cough Cardiovascular: Denies: Chest Pain, Palpitations Gastrointestinal: Denies: Nausea, Vomiting, Diarrhea Neurological: Reports: Weakness Psych: Reports: Anxiety, Depression Objective Physical Examination General Exam: Positive: Alert, Mild Distress (labored breathing) ENT Exam: Positive: Mucous membr. moist/pink Neck Exam: Positive: Supple Chest Exam: Positive: Wheezing, Diminished; Negative: Clear to auscultation, Normal air movement Heart Exam: Positive: Rate Normal, Normal S1, Normal S2 Abdomen Exam: Positive: Normal bowel sounds, Soft; Negative: Tenderness Extremity Exam: Negative: Edema Neuro Exam: Negative: Normal Speech Psych Exam: Positive: Mental status NL, Mood NL Assessment /Plan Problems (1) Acute on chronic respiratory failure with hypercapnia Status: Acute Discussed With: Patient Problem Specific Plan: Consult Specialist, Monitor Clinically, Repeat Labs Problem Text: Pt's theophylline dose held on admission due to elevated levels, level this morning <2, therefore her medication has been resumed. Pulm is consulted. SM 40 mg q8h, Bactim IV (h/o MRSA & stenotrophomonas maltophilia). Sputum culture pending. Cont with Nebs. Cont with home setting for BIPAP to be used when sleeping. (2) Anxiety Status: Acute Problem Specific Plan: Monitor Clinically Problem Text: She has been taking Xanax prn as an outpt, has been given Buspar in the pt, but has never taking this consistently. Will resume. (3) Stage 4 very severe COPD by GOLD classification Status: Chronic (4) Cachexia associated with pulmonary fibrosis Status: Chronic Plan/VTE VTE Prophylaxis Ordered?: Yes VS, I&O, 24H, Fishbone Vital Signs/I&O Vital Signs Date Time Temp Pulse Resp B/P (MAP) Pulse Ox O2 Delivery O2 Flow Rate FiO2 04/28/19 07:49 98.3 90 22 108/58 (75) 93 Nasal Cannula 3.0 I&O- Last 24 Hours up to 6 AM 04/28/19 06:00 Intake Total 831.25 ml Output Total 750 ml Balance 81.25 ml Laboratory Data 24H LABS Laboratory Tests 2 04/27/19 11:59: Blood Gas Bicarbonate Standard 29.2H, Arterial Blood pH 7.385, Arterial Blood Partial Pressure CO2 54.8H, Arterial Blood Partial Pressure O2 69.6L, Arterial Blood Total CO2 33.7H, Arterial Blood HCO3 32.1H, Arterial Blood Base Excess 5.4H, Arterial Blood Oxygen Saturation 93.5L 04/27/19 12:03: Immature Granulocyte % (Auto) 0.4, Neutrophils (%) (Auto) 83.2H, Lymphocytes (%) (Auto) 7.8L, Monocytes (%) (Auto) 7.7H, Eosinophils (%) (Auto) 0.5, Basophils (%) (Auto) 0.4, Neutrophils # (Auto) 15.3H, Lymphocytes # (Auto) 1.4L, Monocytes # (Auto) 1.4H, Eosinophils # (Auto) 0.1, Basophils # (Auto) 0.1, Nucleated Red Blood Cells % (auto) 0.0, Anion Gap 3L, Glomerular Filtration Rate > 60.0, Lactic Acid Level 1.3, Calcium Level 9.2, Total Creatine Kinase 80, Creatine Kinase MB 4.0H, Creatine Kinase MB Relative Index 5.00H, Troponin I < 0.02, Thyroid Stimulating Hormone (TSH) 0.826, Theophylline Level 20.9H 04/27/19 17:47: Total Creatine Kinase 70, Creatine Kinase MB 4.1H, Creatine Kinase MB Relative Index 5.86H, Troponin I < 0.02 04/28/19 05:05: Nucleated Red Blood Cells % (auto) 0.0, Anion Gap 2L, Glomerular Filtration Rate > 60.0, Calcium Level 8.7 04/28/19 09:00: Theophylline Level < 2.0L CBC/BMP Laboratory Tests 04/27/19 12:03 04/28/19 05:05 Microbiology Microbiology 04/27/19 Blood Culture, Received Pending 04/27/19 Respiratory Virus Panel (PCR) ([facility]) - Final, Complete 04/27/19 Blood Culture, Received Pending LAISHA FORBES PA-C Apr 28, 2019 10:13
[2019-04-28] MEDS: THEOPHYLLINE PO SCH (10:31)
--- NOTE | 2019-04-28 10:48 | IPN ---
DATE: 04/28/2019 I spoke with Melisa Berman and her this morning. I have also spoken with the primary service. She was admitted yesterday for what was felt to be an exacerbation. Maximum temperature (t-max) overnight 98.3, blood pressure 99 to 108, heart rate generally in the 80s, respiratory rate 18 to 20s. White blood cell count this morning 12.1, hemoglobin 12.0, platelet count 276,000. Electrolytes show a sodium of 136, potassium of 4.3, chloride 99, CO2 35, BUN 16, creatinine 0.61. Blood gas done yesterday done on oxygen flow shows a pH of 7.35, pCO2 of 54.8, pO2 of 69.6, saturation 93.5%. PHYSICAL EXAMINATION: She is quite anxious. Both her and her say that this has been her primary issue at home. Pupils react. Sclerae clear. Trachea is in midline. Chest shows marked hyperresonance to percussion, especially at the bases. Breath sound intensity markedly diminished. There is kyphosis with marked global decreased breath sound intensity. Some faint inspiratory crackles at the apices, left mildly greater than right. Cardiac exam is distant but regular. Peripheral pulses palpable. Trace edema at best. Abdomen is soft with active bowel sounds. No convincing organomegaly or mass. Extremities are without cyanosis or clubbing. Neurologically, awake, alert, and appropriate but anxious and tearful. IMPRESSION: 1. End stage obstructive lung disease secondary to a genetic range of alpha 1 antitrypsin. 2. Emphysema on the bases of the above. 3. Chronic hypoxemic and hypercapnic respiratory failure, oxygen requiring. 4. Dependent on noninvasive support/sleep apnea with home BiPAP. I had a very lengthy discussion at the bedside with her and her . Their main issue is her anxiety at home, which he describes as crippling for her. They were set to drive to [place] today but she was so nervous and anxious about it that their concern is that it actually precipitated this exacerbation. I have spoken with the primary care team regarding her anxiety and they will be making some interventions. Her current medication regimen is reasonable. She did recently grow Stenotrophomonas sensitive to Bactrim that she is on. We will continue as outlined above. I am in full agreement with her current plan. Further recommendations will be made in the progress record as new information becomes available.
[2019-04-28 12:00] VITALS: BP 105/62
[2019-04-28] MEDS: guaiFENesin ER 600 MG TAB PO PRN ×2 (12:15→22:17)
[2019-04-28] MEDS ORDERED: THEOPHYLLINE (THEO-24) 100MG SR **CAPSULE PO SCH (15:00)
[2019-04-28] MEDS: THEOPHYLLINE 300 MG PO SCH (15:17)
[2019-04-28 16:00] VITALS: BP 135/69
[2019-04-28 20:00] VITALS: BP 112/60
[2019-04-28] MEDS: MAGNESIUM OXIDE 400 MG TAB (MAG-OX) PO SCH (20:56)
[2019-04-28] MEDS: CETIRIZINE (ZyrTEC) 10 MG TAB PO SCH (20:56)
[2019-04-29] VITALS: BP 115/60
[2019-04-29] MEDS: IPRATROPIUM 0.5MG/ALBUTEROL 2.5MG INH SOL UD 3ML (DUONEB)(J7620) NEB SCH ×4 (01:47→19:52)
[2019-04-29] MEDS: LEVALBUTEROL 1.25 MG/0.5 ML CONCENTRATE NEB INH PRN ×3 (01:47→19:52)
[2019-04-29 04:00] VITALS: BP 122/64
[2019-04-29] MEDS: SLF 3 ML SYR IV SCH ×3 (04:30→22:07)
[2019-04-29] MEDS: methylPREDNISolone INJ 40 MG/1 ML VIAL (J2920) IV SCH (04:30)
[2019-04-29] MEDS: TRIMETHOPRIM/SULFAMETHOXAZOLE 500 MG in D5W 500 ML IV SCH (04:30)
[2019-04-29 05:29] LABS: BASO % 0.1 % (0.0-1.0); HEMATOCRIT 35.5 % (36.0-47.0); HEMOGLOBIN 11.4 g/dl (12.0-15.5); LYMPH # 0.9 10^3/uL (1.5-5.0); LYMPH % 5.4 % (24.0-44.0); MEAN CORPUSCULAR HEMOGLOBIN 28.6 pg (27.0-33.0); MEAN CORPUSCULAR HGB CONC 32.1 g/dl (32.0-36.5); MEAN CORPUSCULAR VOLUME 89.2 fl (80.0-96.0); MONO # 0.9 10^3/uL (0.0-0.8); MONO % 5.1 % (0.0-5.0); NEUTROPHILS # 15.3 10^3/uL (1.5-8.5); PLATELET COUNT, AUTOMATED 289 10^3/uL (150-450); RED BLOOD COUNT 3.98 10^6/uL (4.00-5.40); WHITE BLOOD COUNT 17.2 10^3/uL (4.0-10.0)
[2019-04-29 05:53] LABS: ALT/SGPT 21 U/L (12-78); BILIRUBIN,TOTAL 0.1 MG/DL (0.2-1.0); BLOOD UREA NITROGEN 12 MG/DL (7-18); CALCIUM LEVEL 8.2 MG/DL (8.5-10.1); CARBON DIOXIDE LEVEL 33 MEQ/L (21-32); CHLORIDE LEVEL 99 MEQ/L (98-107); CREATININE FOR GFR 0.56 MG/DL (0.55-1.30); GLOMERULAR FILTRATION RATE > 60.0 (>51); GLUCOSE, FASTING 175 MG/DL (70-100); POTASSIUM SERUM 4.9 MEQ/L (3.5-5.1); SODIUM LEVEL 137 MEQ/L (136-145); THEOPHYLLINE LEVEL 10.4 UG/ML (10.0-20.0)
[2019-04-29] MEDS: TIOTROPIUM INHALER/CAPSULE (SPIRIVA) INH SCH (07:56)
[2019-04-29 08:00] VITALS: BP 119/63
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
[2019-04-29] MEDS: HEPARIN SOD (PORCINE) 5000 UNITS/ML VIAL (J1644 PER 1000UNITS) SC SCH ×2 (09:00→20:54)
[2019-04-29] MEDS: ESCITALOPRAM OXALATE 5MG TABLET (LEXAPRO) PO SCH (09:13)
[2019-04-29] MEDS: predniSONE 20 MG TAB PO SCH (09:13)
[2019-04-29] MEDS: ALPRAZolam 0.25 MG TAB PO PRN ×2 (09:13→21:00)
[2019-04-29] MEDS: BACTRIM 160MG/800MG DS TAB PO SCH ×2 (09:13→20:54)
[2019-04-29] MEDS: NYSTATIN 500,000 U/5 ML SUSP UDC SS SCH ×4 (09:13→20:53)
[2019-04-29] MEDS: N ACETYL CYSTEINE PO SCH ×2 (09:14→20:55)
[2019-04-29] MEDS: THEOPHYLLINE PO SCH (09:15)
[2019-04-29] MEDS ORDERED: CLOPIDOGREL 75 MG TAB PO SCH (10:00)
[2019-04-29] MEDS: BREO ELLIPTA 200MCG/25MCG INH SCH (10:22)
[2019-04-29 12:00] VITALS: BP 157/81
[2019-04-29 16:00] VITALS: BP 127/57
[2019-04-29] MEDS: THEOPHYLLINE 300 MG PO SCH (16:11)
[2019-04-29] MEDS: ACETAMINOPHEN TAB 650MG DOSE (2X325MG) PO PRN (18:30)
[2019-04-29] MEDS: guaiFENesin ER 600 MG TAB PO PRN (18:31)
[2019-04-29 20:00] VITALS: BP 123/58
[2019-04-29] MEDS ORDERED: SIMETHICONE 80 MG CHEW TAB PO PRN (20:00)
[2019-04-29] MEDS: DOCUSATE SODIUM 100 MG CAP PO SCH (20:53)
[2019-04-29] MEDS: CETIRIZINE (ZyrTEC) 10 MG TAB PO SCH (20:54)
[2019-04-29] MEDS: MAGNESIUM OXIDE 400 MG TAB (MAG-OX) PO SCH (20:54)
[2019-04-30] VITALS: BP 105/55
[2019-04-30] MEDS: IPRATROPIUM 0.5MG/ALBUTEROL 2.5MG INH SOL UD 3ML (DUONEB)(J7620) NEB SCH ×2 (02:00→07:15)
[2019-04-30] MEDS: LEVALBUTEROL 1.25 MG/0.5 ML CONCENTRATE NEB INH PRN (02:06)
[2019-04-30 04:00] VITALS: BP 102/54
[2019-04-30 05:07] LABS: BASO % 0.1 % (0.0-1.0); EOS % 0.2 % (0.0-3.0); HEMOGLOBIN 11.3 g/dl (12.0-15.5); LYMPH # 1.6 10^3/uL (1.5-5.0); LYMPH % 12.2 % (24.0-44.0); MEAN CORPUSCULAR HEMOGLOBIN 27.8 pg (27.0-33.0); MEAN CORPUSCULAR HGB CONC 31.4 g/dl (32.0-36.5); MEAN CORPUSCULAR VOLUME 88.5 fl (80.0-96.0); MONO # 1.1 10^3/uL (0.0-0.8); MONO % 8.2 % (0.0-5.0); NEUTROPHILS # 10.4 10^3/uL (1.5-8.5); NEUTROPHILS % 78.8 % (36.0-66.0); PLATELET COUNT, AUTOMATED 299 10^3/uL (150-450); RED BLOOD COUNT 4.07 10^6/uL (4.00-5.40); WHITE BLOOD COUNT 13.1 10^3/uL (4.0-10.0)
[2019-04-30 05:45] LABS: ALBUMIN 2.9 GM/DL (3.2-5.2); ALT/SGPT 21 U/L (12-78); BILIRUBIN,TOTAL 0.4 MG/DL (0.2-1.0); BLOOD UREA NITROGEN 14 MG/DL (7-18); CALCIUM LEVEL 8.4 MG/DL (8.5-10.1); CARBON DIOXIDE LEVEL 38 MEQ/L (21-32); CHLORIDE LEVEL 97 MEQ/L (98-107); CREATININE FOR GFR 0.57 MG/DL (0.55-1.30); GLOMERULAR FILTRATION RATE > 60.0 (>51); GLUCOSE, FASTING 73 MG/DL (70-100); POTASSIUM SERUM 3.8 MEQ/L (3.5-5.1); SODIUM LEVEL 132 MEQ/L (136-145); TOTAL PROTEIN 6.2 GM/DL (6.4-8.2)
[2019-04-30] MEDS: SLF 3 ML SYR IV SCH (06:37)
[2019-04-30] MEDS: TIOTROPIUM INHALER/CAPSULE (SPIRIVA) INH SCH (07:13)
[2019-04-30] MEDS: BREO ELLIPTA 200MCG/25MCG INH SCH (07:14)
[2019-04-30] MEDS ORDERED: PRED20TA PO (07:47)
[2019-04-30] MEDS ORDERED: NYST50SS SS (07:47)
[2019-04-30] MEDS ORDERED: LEXA5TAB13 PO (07:47)
[2019-04-30 08:00] VITALS: BP 137/61
[2019-04-30] MEDS: predniSONE 20 MG TAB PO SCH (08:06)
[2019-04-30] MEDS: NYSTATIN 500,000 U/5 ML SUSP UDC SS SCH (08:06)
[2019-04-30] MEDS: HEPARIN SOD (PORCINE) 5000 UNITS/ML VIAL (J1644 PER 1000UNITS) SC SCH (08:06)
[2019-04-30] MEDS: ESCITALOPRAM OXALATE 5MG TABLET (LEXAPRO) PO SCH (08:06)
[2019-04-30] MEDS: ALPRAZolam 0.25 MG TAB PO PRN (08:06)
[2019-04-30] MEDS: N ACETYL CYSTEINE PO SCH (08:07)
[2019-04-30] MEDS: DOCUSATE SODIUM 100 MG CAP PO SCH (08:07)
[2019-04-30] MEDS: THEOPHYLLINE PO SCH (08:07)
[2019-04-30] MEDS: BACTRIM 160MG/800MG DS TAB PO SCH (08:07)
--- NOTE | 2019-04-30 18:51 | DSES ---
DATE OF ADMISSION: 04/27/2019 DATE OF DISCHARGE: 04/30/2019 PRIMARY CARE PHYSICIAN: ИВАН Lira ATTENDING: Eliceo Nicole MD ALL AROUND PRESSER: Jason Reyes MD HISTORY OF PRESENT ILLNESS: A 53-year-old female, who presented to [facility] Emergency Department (ED) for complaints of significant shortness of breath and anxiety. The patient has prior history of Alpha-I antitrypsin deficiency with oxygen dependency of 3 liters nasal canula. The patient was admitted for presumed chronic obstructive pulmonary disease (COPD) exacerbation. HOSPITAL COURSE: The patient was placed on IV steroids and IV Bactrim. She tolerated those well. It was noted that the patient has a significant anxiety component to her breathing symptoms. She was given alprazolam while inpatient, which she had been taking previously at home. Attempted to start sertraline, which the patient declined due to prior intolerance. We switched her over to Lexapro 5 mg, which she tolerated well. The patient was transitioned to oral antibiotic, as well as oral prednisone within the last 24 hours and has tolerated that well. Oxygen saturations have maintained within normal limits on her baseline oxygenation of 3 liters nasal canula. Most recent labs show white blood cell count of 1300, hemoglobin and hematocrit of 11 and 36. Comprehensive metabolic panel (CMP) is stable with a mildly low sodium of 132. PHYSICAL EXAMINATION: Vital signs are stable. The patient is afebrile. HEENT: Neck is supple without lymphadenopathy or jugular venous distension (JVD). CARDIOVASCULAR: Heart rate and rhythm regular. PULMONARY: Lungs are diminished bibasilar, otherwise clear throughout. PSYCHIATRIC: Affect is perfect. Conversation is congruent and the patient maintains eye contact. ASSESSMENT: 1. Acute on chronic respiratory failure with hypercapnia. 2. Anxiety. 3. Cachexia associated with pulmonary fibrosis. 4. Thrush. PLAN: The patient will be discharged to home. Activities as tolerated. Diet is as tolerated. She will followup with primary care physician within the next week. She will followup with pulmonology within the next two weeks and she will be set up with a counseling appointment prior to discharge for her anxiety. MEDICATIONS ARE FOLLOWS: - Lexapro 5 mg one daily - nystatin oral suspension 5 mL swish and swallow four times a day - prednisone 20 mg tablet taper was provided - acetaminophen 325 mg two by mouth four times a day as needed for pain - acetylcysteine 600 mg by mouth twice a day - albuterol sulfate HFA 2 puffs every 4 hours as needed for shortness of breath - alprazolam 0.25 mg by mouth twice a day as needed for anxiety - cetirizine 10 mg by mouth at bedtime (q.h.s.) - Breo Ellipta one puff daily - Mucinex 600 mg by mouth twice a day as needed for cough - ibuprofen 600 mg by mouth three times a day as needed for pain - levalbuterol three times a day as needed for shortness of breath via nebulizer - magnesium oxide 400 mg by mouth by mouth at bedtime (q.h.s.) - multivitamin one by mouth daily - Bactrim one tab by mouth twice a day - theophylline 300 mg by mouth every p.m. - theophylline 450 mg by mouth in the a.m. - Spiriva 18 mcg one inhalation daily - vitamin D complex one tab by mouth daily The patient is discharged in stable and satisfactory condition. There were no further questions at the time of discharge.
== END 2019-04-30 11:00 | disposition home or self-care (01) | DRG 133 ==
LOC: M ED 11:37 → EDBD 11:37 → M ED INP 14:31 → ENRESERV 14:49 → M PCU 15:30
PROVIDERS: ADMIT Internal Medicine; ATTEND Family Medicine
DX: J96.22 Acute and chronic respiratory failure with hypercapnia (principal); R64 Cachexia; B37.0 Candidal stomatitis; E88.01 Alpha-1-antitrypsin deficiency; J44.1 Chronic obstructive pulmonary disease with (acute) exacerbation; J84.10 Pulmonary fibrosis, unspecified; K90.41 Non-celiac gluten sensitivity; B95.62 Methicillin resistant Staphylococcus aureus infection as the cause of diseases classified elsewhere; J06.9 Acute upper respiratory infection, unspecified; F41.9 Anxiety disorder, unspecified; Z79.899 Other long term (current) drug therapy; Z88.0 Allergy status to penicillin; Z88.8 Allergy status to other drugs, medicaments and biological substances; Z79.52 Long term (current) use of systemic steroids

== ENCOUNTER → 2019-05-11 | Outpatient (REF) | payer BC, MEDICARE ==
[~2019-05-11] MED LIST changes: +LEXA5TAB13 PO; +NYST50SS SS; +PRED20TA PO; +RA B1TAB2 PO; +SULF400T14 PO
== END ==
LOC: M LAB REF 16:57
PROVIDERS: ATTEND Internal Medicine Pulmonary Disease
DX: J44.9 Chronic obstructive pulmonary disease, unspecified (principal)

== ENCOUNTER → 2019-08-20 | Outpatient (REF) | payer BC ==
[~2019-08-20] MED LIST changes: +ESCI10TA2 PO
== END ==
LOC: M LAB REF 13:17
PROVIDERS: ATTEND Internal Medicine Pulmonary Disease
DX: J43.9 Emphysema, unspecified (principal)

== ENCOUNTER 2019-08-27 07:53 | Inpatient (IN) | payer BC ==
[2019-08-27] VITALS (12 sets, daily range): BP systolic 83–160; BP diastolic 51–98
[~2019-08-27] VITALS: Ht 167.6 cm; Wt 48.8 kg
[~2019-08-27 07:53] MED LIST changes: -ESCI10TA2 PO
[2019-08-27] MEDS: IPRATROPIUM 0.5MG/ALBUTEROL 2.5MG INH SOL UD 3ML (DUONEB) NEB PRN ×6 (08:12→09:56)
[2019-08-27] MEDS ORDERED: methylPREDNISolone INJ 125 MG/2 ML VIAL (J2930) IV ONE (08:15)
[2019-08-27 08:24] LABS: BASO # 0.1 10^3/uL (0.0-0.2); BASO % 0.3 % (0.0-1.0); EOS # 0.1 10^3/uL (0.0-0.5); EOS % 0.7 % (0.0-3.0); HEMATOCRIT 45.2 % (36.0-47.0); HEMOGLOBIN 14.1 g/dl (12.0-15.5); LYMPH # 2.7 10^3/uL (1.5-5.0); LYMPH % 14.6 % (24.0-44.0); MEAN CORPUSCULAR HEMOGLOBIN 28.3 pg (27.0-33.0); MEAN CORPUSCULAR HGB CONC 31.2 g/dl (32.0-36.5); MEAN CORPUSCULAR VOLUME 90.6 fl (80.0-96.0); MONO # 1.6 10^3/uL (0.0-0.8); MONO % 8.7 % (0.0-5.0); NEUTROPHILS % 75.3 % (36.0-66.0); PLATELET COUNT, AUTOMATED 343 10^3/uL (150-450); RED BLOOD COUNT 4.99 10^6/uL (4.00-5.40); WHITE BLOOD COUNT 18.6 10^3/uL (4.0-10.0)
[2019-08-27] MEDS ORDERED: ALPRAZolam 0.25 MG TAB PO ONE (08:30)
--- NOTE | 2019-08-27 08:39 | REP ---
Clinical: Cough. Dyspnea. Comparison: 04/27/2019. Findings: Mediastinum and cardiac silhouette are stable/normal. The lung kramer demonstrate diffuse advanced emphysematous disease with scattered fibrosis and scarring primarily involving the perihilar and upper lobe regions. Findings remain stable. No new acute consolidation, effusion, or pneumothorax. Skeletal structures intact. Impression: Chronic stable emphysematous disease. Electronically Signed by Steve Minaya MD 08/27/2019 08:30 A
[2019-08-27] MEDS ORDERED: MULTIVITAMINS/MINERALS THERAP 1 TAB PO SCH (09:00)
[2019-08-27] MEDS ORDERED: ISOVUE-370 76% 100ML VIAL As Ordered ONE (09:32)
[2019-08-27 09:34] LABS: THYROID STIMULATING HORMONE 0.767 uIU/ML (0.358-3.740)
[2019-08-27] MEDS ORDERED: PRED10TA2 PO (10:15)
[2019-08-27] MEDS ORDERED: ESCI10TA2 PO (10:15)
[2019-08-27] MEDS ORDERED: INCR1INH INH (10:15)
[2019-08-27] MEDS ORDERED: LEXA5TAB13 PO (10:15)
[2019-08-27] MEDS ORDERED: ESCITALOPRAM OXALATE 5MG TABLET (LEXAPRO) PO ONE (10:45)
[2019-08-27] MEDS ORDERED: METOPROLOL 5 MG/5 ML VIAL IV STA (11:00)
[2019-08-27] MEDS ORDERED: guaiFENesin ER 600 MG TAB PO PRN (11:00)
[2019-08-27] MEDS ORDERED: ACETAMINOPHEN TAB 650MG DOSE (2X325MG) PO PRN (11:00)
[2019-08-27] MEDS ORDERED: ALBUTEROL SULFATE 2.5 MG/0.5 ML INH NEB SOLN NEB PRN (11:00)
[2019-08-27] MEDS ORDERED: MORPHINE 2 MG/ML 1ML VIAL (J2270) As Ordered ONE (11:14)
[2019-08-27] MEDS ORDERED: NS 1,000 ML IV SCH (11:30)
[2019-08-27] MEDS ORDERED: MORPHINE 2 MG/ML 1ML VIAL (J2270) IV ONE (11:30)
[2019-08-27] MEDS: IPRATROPIUM 0.5MG/ALBUTEROL 2.5MG INH SOL UD 3ML (DUONEB) NEB SCH ×4 (12:00→23:20)
[2019-08-27] MEDS ORDERED: LevoFLOXacin IV 750 MG in IV 1 EA IV SCH (12:00)
[2019-08-27] MEDS ORDERED: NS 500 ML IV ONE (12:00)
[2019-08-27] MEDS ORDERED: NS 1,000 ML IV ONE ×2 (13:15→15:15)
[2019-08-27] MEDS ORDERED: THEOPHYLLINE 300 MG PO SCH (15:00)
--- NOTE | 2019-08-27 15:16 | HPEPDOC ---
[facility] Medical History & Physical Date of Admission Aug 27, 2019 Date of Service: Aug 27, 2019 Attending Physician: Olga Lidia Michelle MD Vital Signs CHIEF COMPLAINT: worsening shortness of breath. HISTORY OF PRESENT ILLNESS: The patient is a 53-year-old female with past medical history of end-stage COPD with genetic variant alpha-1 anti-trypsin deficiency, anxiety, history of MRSA who presented to [facility] emergency room after having worsening shortness of breath over the past one week. The patient was very short of breath in the emergency room and was unable to fully per dissipate with her evaluation due to her being on BiPAP. She is also had an anterior chest pressure, 10 out of 10, localized, pressure she is familiar with whenever she has a COPD flareup. She states she's had associated cough, increased weakness, wheezing, palpitations, loss of appetite, fevers, nausea, lightheadedness at home. Review of systems below. She went to see her primary care provider who placed her on steroids and antibiotics but this did not improve her condition. She called 911 today due to increased difficulty breathing. At baseline the patient wears 2 L nasal cannula during the day and uses BiPAP at nighttime and during the day as needed. In the emergency room heart rate ranged between 122-155, blood pressure 136/83, respiratory rate 3440, 87% on 2 L. The patient was bumped up to 9 L nasal ca nnula and placed on BiPAP for comfort. Chest x-ray showed chronic emphysematous changes. CTA ruled out pulmonary emboli on preliminary reading. She was given a total of 125 methylprednisolone, 6 DuoNeb treatments and anxiolytic in the emergency room. On my evaluation her heart rate was 155, blood pressure was stable and she was breathing at 40/minute. She was ashen in appearance. Troponin was slightly elevated at 0.16, WBC 18,000, blood sugar 186, lactic acid high at 2.01, BNP and TSH were within normal limits. ECG showed sinus tachycardia, abnormal. When compared to prior ECG on file it appeared to be similar. The patient was admitted to the ICU with a diagnosis of acute on chronic respiratory failure, acute COPD exacerbation. 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 REVIEW OF SYSTEMS: CONSTITUTIONAL: Denies unexplained weight gain or weight loss, night sweats EYES: Denies eye drainage, eye pain, visual changes, dry/irritated eye EARS, NOSE, MOUTH, THROAT: Denies difficulty hearing, ringing in ears, mouth sores, loose teeth, sore throat, facial numbness or pain NECK: Denies swollen glands CARDIOVASCULAR: Denies irregular heartbeat, swelling of feet or legs, pain in legs with walking RESPIRATORY: Denies night sweats, sputum production, coughing up blood GASTROINTESTINAL: Denies abdominal pain, constipation, bloody stool, diarrhea, heartburn, nausea, vomiting GENITOURINARY: Denies painful urination, bloody urine, frequent urination, urgency, leaking urine, impotence MUSCULOSKELETAL: Denies joint pain, muscle pain, leg swelling INTEGUMENTARY: Denies rash, itching, new skin lesion, change in existing skin lesion, hair loss or increase, breast changes. NEUROLOGICAL: Denies headaches, dizziness, difficulty walking, numbness or tingling PSYCHIATRIC: Denies depression, recurrent bad thoughts, mood swings, hallucinations PAST MEDICAL HISTORY: 1. End-stage COPD 2. Alph-1 antitrypsin disease 3. Anxiety PAST SURGICAL HISTORY: 1. gastric tumor removal 2. C section FAMILY HISTORY: Father: Esophageal cancer metastatic- age unknown Mother: No known issues, in SOCIAL HISTORY: She is and lives at home with her . Does not smoke, does not use drugs, does not use alcohol. She is a [employer]. will be her surrogate decision maker. ALLERGIES: Please see below. HOME MEDICATIONS: Please see below. PHYSICAL EXAMINATION: CONSTITUTIONAL: In acute distress, tachypneic, diaphoretic, lethargic but attempting to answer questions on bipap. AO x 3 EYES: PERRLA, EOM intact HENT, MOUTH: Normocephalic, atraumatic, moist mucous membranes, bipap mask in place NECK: SUPPLE, no JVD, no lymphadenopathy, no carotid bruit CV: tachycardic, sinus rhythm. S1S2 normal, no murmurs/rubs/gallops RESPIRATORY: Decreased bilaterally, no rales/rhonchi/wheezes GI: thin abdomen, BS positive in 4 quadrants, soft, nontender, nondistended, no rebound or guarding, no organomegaly : Deferred MUSCULOSKELETAL: Normal ROM. No cyanosis, clubbing, swelling, joint deformity, extremity edema INTEGUMENTARY: Intact, no rashes, no lesions, no erythema NEUROLOGIC: Cranial Nerves II-XII are intact, no focal deficits LABORATORY DATA: Please see below IMAGING: CXR: No acute disease, chronic changes CTA chest: prelim reading- no PE. Awaiting official report. ASSESSMENT: 53 y/o F admitted for acute on chronic hypercapnic and hypoxic re spiratory failure, COPD exacerbation. PLAN: 1. Acute hypercapnic, hypoxic respiratory failure 2/2 to COPD exacerbation. C/w supplemental O2 support, bipap PRN, methylprednisolone 125 mg Q8 HR, duoneb ATC, albuterol PRN, theophylline home dose, pulmonary consult. Monitor closely on tele, keep NPO except for medications. 2. Hypotension likely 2/2 to lopressor, morphine IV. S/p 500 cc and 2 x 1000 cc bolus, with second 1 L bolus running now. C/w IVFs at 100 cc/hr, monitor closely on telemetry. 3. Chest pressure/pain likely 2/2 to sinus tachycardia, respiratory distress. No prior cardiac disease. Elevated troponin 2/2 to ischemic demand. Improved with 1 mg IV morphine and lopressor controlling HR. F/u 3rd trop, holding off on CCB at this time. Cardiology to see. 4. Sinus tachycardia likely 2/2 to respiratory distress. Improved s/p 5 mg lopressor in ER. Monitor on telemetry. 5. Elevated troponin likely 2/2 to ischemic demand. Trop elevated to 2.61. ECG abnormal but unchanged from admission. F/u trop in afternoon. Echo ordered. Holding CCB due to hypotension. Discussed with Cardiology and consulted to see. 6. Alpha-1 antitrypsin deficiency. Follows with pulmonary as o/p. C/w treatment above. 7. Anxiety. Continue home medications. 8. GI px. PPI IV. 9. DVT px. Enoxaparin SC daily DISPOSITION: Currently admitted under ICU care. Cardiology and pulmonary to see. TOTAL CRITICAL CARE TIME SPENT ON PATIENT: >70 mins Laboratory Data Labs 24H Laboratory Tests 2 08/27/19 08:09: Immature Granulocyte % (Auto) 0.4, Neutrophils (%) (Auto) 75.3H, Lymphocytes (%) (Auto) 14.6L, Monocytes (%) (Auto) 8.7H, Eosinophils (%) (Auto) 0.7, Basophils (%) (Auto) 0.3, Neutrophils # (Auto) 14.0H, Lymphocytes # (Auto) 2.7, Monocytes # (Auto) 1.6H, Eosinophils # (Auto) 0.1, Basophils # (Auto) 0.1, Nucleated Red Blood Cells % (auto) 0.0, OA-[id number]-[id number]-Type Natriuretic Peptide 102, Thyroid Stimulating Hormone (TSH) 0.767 08/27/19 08:13: POC Glucose (Misc Panel) 186H, POC Sodium (Misc Panel) 141, POC Potassium (Misc Panel) 4.3, POC Chloride (Misc Panel) 100, POC Total CO2 (Misc Panel) 29.0H, POC Blood Urea Nitrogen (Misc Panel 33H, POC Ionized Calcium (Misc Panel) 5.0, POC Creatinine (Misc Panel) 0.4L, POC Hematocrit (Misc Panel) 48.0 08/27/19 08:17: POC Lactate (Misc Panel) 2.01*H 08/27/19 08:18: POC Total CO2 (Misc Panel) 33.0H, POC pH (Misc Panel) 7.336L, POC Base Excess (Misc Panel) 5.0H, POC Saturated Percent O2 (Misc) 92L, POC pO2 (Misc Panel) 70.0L, POC pCO2 (Misc Panel) 58.2H, POC HCO3 (Misc Panel) 31.1H 08/27/19 08:22: POC Troponin I (Misc) 0.16H 08/27/19 11:46: Troponin I 2.61*H 08/27/19 14:56: CBC/BMP Laboratory Tests 08/27/19 08:09 Microbiology Microbiology 08/27/19 Blood Culture, Received Pending 08/27/19 Respiratory Virus Panel (PCR) (CHRISTOPHER) - Final, Complete 08/27/19 Blood Culture, Received Pending Home Medications Scheduled Acetylcysteine (Nac) 600 Mg Capsule, 600 MG PO BID Cetirizine HCl (Cetirizine HCl) 10 Mg Tablet, 10 MG PO QHS Escitalopram Oxalate (Escitalopram Oxalate) 10 Mg Tablet, 10 MG PO DAILY 15MG TOTAL DAILY Escitalopram Oxalate (Lexapro) 5 Mg Tablet, 5 MG PO DAILY 15MG TOTAL DAILY Fluticasone/Vilanterol (Breo Ellipta 200-25 Mcg INH) 1 Inh Inh, 1 PUFF INH DAILY Magnesium Oxide (Magnesium) 400 Mg Capsule, 400 MG PO QHS Multivitamin (Multivitamins) 1 Each Capsule, 1 CAP PO DAILY Prednisone (Prednisone) 10 Mg Tablet, 10 MG PO TAPER FILLED 08/26/19 - 30MG DAILY FOR 4 DAYS, 20MG DAILY FOR 4 DAYS, 10MG DAILY FOR 4 DAYS Theophylline Anhydrous (Theophylline Anhydrous) 300 Mg Tab.er.12h, 300 MG PO QPM TAKES AT 1500 Theophylline Anhydrous (Theophylline Anhydrous) 450 Mg Tab.er.12h, 450 MG PO QAM Umeclidinium [place] (Incruse Ellipta) 62.5 Mcg Blst.w.dev, 1 PUFF INH DAILY Vitamin B Complex (Vitamin B Complex) 1 Each Tablet, 1 TAB PO DAILY [Ip6] , 2 TAB PO BID [L-Theanine] , 200 MG PO QHS Scheduled PRN Acetaminophen (Acetaminophen) 325 Mg Tablet, 650 MG PO QID PRN for PAIN Albuterol Sulfate (Ventolin Hfa) 18 Gm Hfa.aer.ad, 2 PUFF INH Q4H PRN for SHORTNESS OF BREATH Alprazolam (Alprazolam) 0.25 Mg Tablet, 0.25 MG PO BID PRN for ANXIETY Guaifenesin (Mucinex) 600 Mg Tab.er.12h, 600 MG PO BID PRN for COUGH Ibuprofen (Ibuprofen) 600 Mg Tablet, 600 MG PO TID PRN for PAIN Levalbuterol HCl (Levalbuterol HCl) 0.63 Mg/3 Ml Vial.neb, 0.63 MG INH Q4H PRN for SHORTNESS OF BREATH [Passion Flower] , 1 TAB PO DAILY PRN for ANXIETY Allergies Coded Allergies: Cephalosporins (Verified Allergy, Intermediate, hives, 10/20/18) azithromycin (Verified Allergy, Mild, RASH, 10/20/18) Penicillins (Verified Allergy, Unknown, 07/29/18) gluten (Verified Allergy, Unknown, 07/29/18) soy (Verified Allergy, Unknown, 07/29/18) mirtazapine (Verified Adverse Reaction, Unknown, HOOKER, 10/20/18) A-FIB/CHADSVASC A-FIB History Current/History of A-Fib/PAF?: No Current PO Anticoag Therapy: No Age/Risk Factor Scoring CHADSVASC: CHADSVASC Response (Comments) Value Age Risk Factor Age < 65 years old 0 Gender Risk Factor Female 1 Hx of CHF No 0 Hx of HTN No 0 Hx of Stroke/TIA/or VTE No 0 Hx of Diabetes No 0 Hx of Vascular Disease No 0 Total 1 Treatment Treatment ordered: Other Other anticoagulant ordered: enoxaparin Olga Lidia Michelle MD Aug 27, 2019 15:16
--- NOTE | 2019-08-27 15:51 | ECHO ---
DATE OF PROCEDURE: 08/27/2019 DATE OF : 1965 AGE: 53 GENDER: Female. HEIGHT: 66 inches WEIGHT: 108 pounds BODY SURFACE AREA: 1.54 m2 INPATIENT: ICU Room 3205 REFERRING PHYSICIAN: Dr. Olga Lidia Michelle INDICATION: Chest pain/abnormal EKG. MEASUREMENTS: 2-D Measurements: RV: 4.2 cm LV: 3.8 cm Septum: 0.9 cm Posterior wall: 0.9 cm Aortic root: 2.8 cm LA: 3.6 cm LVEF: 60% Doppler Measurements: AV: 0.9 m/sec LVOT: 0.7 m/sec LVOT diameter: 1.5 cm MV - E: 99, A: 46, EA ratio: 2.2 Early mitral deceleration time: 202 ms E prime medial: 5.2, A prime medial: 8, E prime lateral: 6.1 Average E/E prime ratio: 17.5 PV: 0.88 m/sec Pulmonary artery acceleration time: 67 ms RVSP: 67-72 mmHg IVC: 1.5 cm COMMENTS: Sinus tachycardia without intraventricular conduction disturbance. Slightly technically challenging in light of the patient's pulmonary disease but diagnostically useful information was still obtained. M-mode and two-dimensional echocardiography was performed with pulsed, continuous wave, color flow and tissue Doppler studies. Normal left ventricular size and wall thickness with paradoxical septal wall motion abnormality due to right ventricle pressure overload, yet preserved global resting systolic function. Obvious "D shaped" appearance to the left ventricular cavity on short axis, LV projections. Normal left atrial size and Doppler assessment of LV diastolic function. Mild right ventricular hypertrophy with normal right ventricular free wall motion and Doppler evidence of severe pulmonary hypertension. At least mildly dilated right atrium with IVC size within normal limits but reduced respiratory collapse in keeping with elevated central venous pressure. Normal aortic dimensions. Normal-appearing and functioning mitral and aortic valves. Normal-appearing tricuspid valve with at least moderate regurgitation. Minuscule posterior pericardial effusion (physiologic). No apparent intracardiac mass. MTDD
[2019-08-27] MEDS ORDERED: methylPREDNISolone INJ 125 MG/2 ML VIAL (J2930) IV SCH (16:00)
[2019-08-27] MEDS ORDERED: IBUPROFEN 600MG TAB PO PRN (16:00)
[2019-08-27] MEDS ORDERED: ENOXAPARIN 40MG/0.4ML SYRINGE (J1650 PER 10MG) SC SCH (16:30)
--- NOTE | 2019-08-27 16:41 | REP ---
Clinical: Acute dyspnea/shortness of breath. Technique: Axial contrast enhanced images using pulmonary embolus technique including coronal and sagittal re-formations and MIP reconstructions. 75 ml Isovue 370 intravenous contrast material administered without complication. Comparison: 11/11/2018. Findings: Satisfactory enhancement of the pulmonary vasculature is achieved and no filling defects are identified to suggest pulmonary embolus. Thoracic aorta is normal in appearance without aneurysm or dissection. Heart and pericardium are normal. Diffuse advanced emphysematous disease with chronic scattered saccular bronchiectatic changes and scattered scarring are again noted. No acute consolidation, effusion, or pneumothorax. Nodule in the apical segment left lower lobe appears slightly decreased in size and currently measures approximately 4.7 mm AP diameter. No adenopathy. Surrounding musculoskeletal structures without acute osseous abnormality. Impression: 1. No evidence for pulmonary embolus. Normal thoracic aorta. 2. Chronic advanced emphysematous disease with scattered saccular bronchiectatic changes and scarring. 3. No acute mediastinal or pleuroparenchymal process identified. 4. Solitary nodule in the apical left lower lobe slightly decreased in size. Electronically Signed by Steve Minaya MD 08/27/2019 04:32 P
--- NOTE | 2019-08-27 17:43 | CR ---
DATE OF CONSULTATION: 08/27/2019 CARDIOLOGY CONSULTATION REFERRING PHYSICIAN: Dr. Olga Lidia Michelle INDICATION: Chest discomfort/elevated troponin I/abnormal EKG. HISTORY: This 53-year-old woman, resident of [place], has been followed by pulmonary medicine for many years with a history of bronchiectasis/emphysema dating back to 2002. She has had several bouts of pneumonia and hospitalizations for recurrent acute on chronic respiratory distress since July 2018. Also has a history of obstructive sleep apnea dating back to May 2016. Last hospitalization for exacerbation was April 2019. She describes to me that her respiratory status has been deteriorating at least the past month. Has been wearing her bilevel positive airway pressure (BiPAP) mask during the day as well as night. Was seen by her primary provider several days ago and given a prescription for steroids and antibiotic therapy, but called emergency medical services (EMS) this morning because of acute respiratory distress. Has been feeling diaphoretic but no clear-cut fever. Denies any change in her cough. No change in sputum color or production. Does describe a sensation of chest tightness that varies with her respiration. She is unaware of her abnormal EKG and actually dates back to at least July 2014. No prior stress testing. Has an awareness of her heart action, usually with exacerbations in her respiratory status. With her shortness of breath, will occasionally feel lightheaded but has not fallen or lost consciousness. Denies any lateralizing neurological deficit, flank pain, hematuria, or blue toe syndrome. No history of claudication. Has had intermittent lower leg swelling with exacerbations in her respiratory status. No known varicose veins or phlebitis. Coronary risk factors: None. Currently young. Certainly not obese. No history of hypertension, diabetes, hypercholesterolemia, smoking, or family history of premature coronary heart disease. 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 Bronchoscopic biopsy of right middle lobe lung mass turned out to be reactive from bronchial mucosa. Pulmonary cachexia. Prior resection of GIST tumor September 2006. REVIEW OF SYSTEMS: Challenging to ask regarding the patient's current respiratory distress even with her BiPAP mask. As mentioned, denies any fever or chills. Her weight has been slowly dropping from April 2019. She has not had much appetite. Denies any gastrointestinal (GI) complaints. No dysuria. No muscular aches and pains. Anxiety but no depression or lateralizing neurological deficits. No environmental allergies. MEDICATIONS: - She has been on controlled supplemental oxygen with continuous positive airway pressure (CPAP), as mentioned. - Most recently prednisone tapering doses starting at 30 mg daily - acetylcysteine 600 mg by mouth twice a day - albuterol nebulizer two puffs every 4 hours - Breo 200/25 one inhalation daily - theophylline 300 mg by mouth at bedtime and 450 mg by mouth every morning - Incruse Ellipta 62.5 one inhalation daily - multivitamin - magnesium oxide - Mucinex 600 mg by mouth twice a day as needed - Lexapro 15 mg daily - Xanax 0.25 mg by mouth twice a day for anxiety - Tylenol 650 mg by mouth four times a day as needed - vitamin B complex one tablet daily ALLERGIES: CEPHALOSPORINS, PENICILLIN, AZITHROMYCIN, gluten, MIRTAZAPINE, and soy (reactions unknown) PHYSICAL EXAMINATION: CONSTITUTIONAL: Cachectic, middle-aged woman with obvious respiratory distress despite BiPAP mask, reaching for her breath. Pale and slightly diaphoretic. VITAL SIGNS: Heart rate 116 beats per minute (BPM), blood pressure 93/51, respiratory rate 30-40 per minute, oxygen saturation 97% on BiPAP mask. Afebrile. Weight 108 pounds, height 6 feet 6 inches, last body mass index (BMI) 17.4. EYES: Slightly pale conjunctiva but no scleral icterus or injection. No xanthelasma. ENT/MOUTH: Normal oral moisture. No obvious central cyanosis. NECK: Trachea midline. Neck veins appear to be slightly elevated, perhaps 4 cm above the sternal angle, but this was somewhat difficult in light of her respiratory distress and use of secondary muscles for respiration. Thyroid did not appear to be enlarged. Trachea midline. RESPIRATORY: Increased anteroposterior chest diameter with reduced chest expansion, using secondary muscles for respiration. Has diffuse, somewhat coarse inspiratory rales but reduced air entry. Prolongation of expiration but no current audible wheeze. CARDIOVASCULAR: Apical impulse is not palpable. Heart sounds are distant and difficult to hear because of her pulmonary adventitious sounds. No audible gallop or murmur. Normal carotid upstroke with reduced volume but no bruits over her carotids. Upper extremity pulses were symmetrical and normal. Abdominal aorta not palpable. No abdominal bruit. Pedal pulses were symmetrical and normal. No dependent edema. EXTREMITIES: No current peripheral cyanosis or clubbing. No splinter hemorrhages. GASTROINTESTINAL: Soft, nontender with no hepatosplenomegaly. Normal bowel sounds. Rectal examination not indicated. MUSCULOSKELETAL: No obvious joint deformities but obvious proximal muscle wasting but normal tone. NEUROLOGIC/PSYCHIATRIC: Bright and alert but distressed, as mentioned. Normal-appearing eye, facial, and extremity movements. No abnormal movements. SKIN: Pallor as described but no ecchymotic lesions or icterus. No rashes. INVESTIGATIONS: Portable upright chest x-ray: Procedure performed in the emergency room showed a normal-appearing heart size and thoracic aorta with increased pulmonary trunk and pulmonary arteries with pruning, likely reflective of pulmonary hypertension. Hyperinflated lung kramer with no infiltrates or pleural effusion. EKG: Initial tracing at 8:57 a.m. this morning showed sinus tachycardia of 122 BPM with right atrial enlargement, right axis deviation, and QS pattern from V1-V4, prominent S waves in V5 and V6, in keeping with her pulmonary disease. Nonspecific ST/T-wave abnormalities. Tracing appearance not dramatically changed from April 2019. Chest CT angiography: Study performed in the emergency room showed a normal thoracic aorta with increased pulmonary trunk and proximal pulmonary vessels. Normal left atrial and left ventricular size and wall thickness. Right heart chambers appear to be at least mildly dilated. Inferior vena cava was upper limits of normal at 1.8 cm. No pericardial effusion or coronary artery calcification. Echocardiogram: Reported separately again shows normal left heart structures with paradoxical septal motion due to severe pulmonary disease and right ventricular pressure overload. Left ventricular ejection fraction estimated at 60%. At least mildly dilated right heart chambers with right ventricle hypertrophy and estimated pulmonary arterial pressure of 70 mm of mercury. Normal inferior vena cava (IVC) size with reduced respiratory collapse, in keeping with elevated central venous pressure. No evidence of mitral or aortic valve disease. Normal-appearing tricuspid valve with at least moderate insufficiency. No pericardial effusion or intracardiac mass. LABORATORY DATA: Hemoglobin 14.1, white blood cell count 18,600. Normal platelet count. Electrolytes are normal: BUN 33, creatinine 0.4, elevated CO2 related to chronic CO2 retention (documented hypercapnic respiratory failure dating back to July 2018). ProBNP level was normal at 102. Troponin I level initially was 0.16 at 8:22 a.m., increasing to 2.6 at 11:46 a.m.. Ultrasensitive TSH was normal. Lactate level was elevated at 2. Arterial blood gas showed a pH of 7.34, pCO2 of 70, pCO2 of 58. IMPRESSION/PLAN: 1. Elevated troponin I level: As discussed with Dr. Michelle, we are observing demand ischemia and just as likely to be a reflection of right ventricular strain and injury with her severe pulmonary hypertension. Has no coronary risk factors. EKG appearance consistent with her pulmonary disease. Echocardiogram shows a septal wall motion abnormality with "D-shaped" left ventricular cavity on short axis, in keeping with severe right ventricular pressure overload, not infarction. Primary care measures to protect the heart would be optimal treatment of her pulmonary condition. 2. Abnormal EKG: As mentioned above, has had longstanding resting sinus tachycardia with her advanced pulmonary disease. Also evidence of right ventricular and right atrial enlargement with nonspecific repolarization abnormalities. 3. Cor pulmonale/right heart failure: As mentioned, related to her advanced bronchiectasis/emphysema and obstructive sleep apnea. Have discussed the severity of her pulmonary hypertension and guarded prognosis with the patient in some detail. The patient currently understands the advanced/end-stage/nonfixable nature of her pulmonary problems and DOES NOT WISH TO BE INTUBATED OR HAVE RESUSCITATIVE MEASURES taken. She is currently considering comfort measures only. The order for DO NOT RESUSCITATE has been written. Cardiology will follow from afar at this point. Thank you for allowing me to participate in the care of your patient. SHEELA
--- NOTE | 2019-08-27 18:29 | ECGEPIP ---
[facility] - ED Test Date: 2019-08-27 Pat Name: SUNNY MULLINS Department: Room: - Gender: Female Public Accountant: maddy : 1965 Requested By: Carlos Carballo Order Number: [id number] Reading MD: Jacquie Molina Measurements Intervals [place] Rate: 122 P: 91 CO: 145 QRS: 93 QRSD: 64 T: 87 QT: 322 QTc: 460 Interpretive Statements SINUS TACHYCARDIA WITH OCCASIONAL ECTOPIC PREMATURE COMPLEXES BORDERLINE RIGHT AXIS DEVIATION ANTEROSEPTAL MYOCARDIAL INFARCTION, OF INDETERMINATE AGE DECREASED RATE 04/27/19 Electronically Signed on 08-27-2019 18:28:56 EDT by Jacquie Molina
--- NOTE | 2019-08-27 19:42 | ECGEPIP ---
[facility] Test Date: 2019-08-27 Pat Name: SUNNY MULLINS Department: Room: [place] [address] Gender: Female Meeting Coordinator: ARI : 1965 Requested By: Olga Lidia Collins Order Number: [id number] Reading MD: Mio Cifuentes Measurements Intervals [place] Rate: 109 P: 89 LA: 113 QRS: 101 QRSD: 82 T: 93 QT: 328 QTc: 442 Interpretive Statements Sinus tachycardia with PAC, aberrantly conducted Right atrial enlargement Anterior VA, age indeterminate Chronic pulmonary disease pattern No significant change when compared to prior tracing of earlier this date Electronically Signed on 08-27-2019 19:41:51 EDT by Mio Cifuentes
--- NOTE | 2019-08-27 19:43 | ECGEPIP ---
[facility] Test Date: 2019-08-27 Pat Name: SUNNY MULLINS Department: Room: [place] [address] Gender: Female Senior Gis Analyst: CASIE : 1965 Requested By: Olga Lidia Colilns Order Number: [id number] Reading MD: Mio Cifuentes Measurements Intervals Whick Rate: 111 P: 87 OH: 136 QRS: 95 QRSD: 66 T: 93 QT: 335 QTc: 456 Interpretive Statements Sinus tachycardia with an aberrantly conducted ectopic beat Right atrial enlargement Anterior [place], age indeterminate Chronic pulmonary disease pattern Electronically Signed on 08-27-2019 19:43:08 EDT by Mio Cifuentes
[2019-08-27] MEDS ORDERED: SCOPOLAMINE 1MG TRANSDERMAL PATCH TOP PRN (20:15)
[2019-08-27] MEDS ORDERED: LORazepam 1 MG TAB PO PRN (20:15)
[2019-08-27] MEDS ORDERED: BISACODYL 10 MG SUPP PR PRN (20:15)
[2019-08-27] MEDS: MORPHINE 2 MG/ML 1ML VIAL (J2270) IV PRN ×2 (20:27→22:39)
[2019-08-27] MEDS ORDERED: ACETYLCYSTEINE 20% 4 ML VIAL (200MG/ML) PO SCH (21:00)
[2019-08-27] MEDS ORDERED: CETIRIZINE (ZyrTEC) 10 MG TAB PO SCH (21:00)
[2019-08-27] MEDS ORDERED: ALPRAZolam 0.25 MG TAB PO PRN (21:00)
[2019-08-27] MEDS ORDERED: guaiFENesin ER 600 MG TAB PO SCH (21:00)
[2019-08-27] MEDS ORDERED: MAGNESIUM OXIDE 400 MG TAB (MAG-OX) PO SCH (21:00)
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
[2019-08-28] MEDS: MORPHINE 2 MG/ML 1ML VIAL (J2270) IV PRN ×5 (01:26→12:05)
[2019-08-28] MEDS ORDERED: LORazepam 2 MG/ML VIAL As Ordered ONE ×2 (01:41→05:49)
[2019-08-28] MEDS: LORazepam 2 MG/ML VIAL IV PRN ×4 (01:44→15:36)
[2019-08-28] MEDS: IPRATROPIUM 0.5MG/ALBUTEROL 2.5MG INH SOL UD 3ML (DUONEB) NEB SCH ×4 (03:08→16:00)
[2019-08-28] MEDS ORDERED: ESCITALOPRAM OXALATE 10 MG TAB (LEXAPRO) PO SCH (09:00)
[2019-08-28] MEDS ORDERED: PANTOPRAZOLE 40MG VIAL (C9113 PER 1) IV SCH (09:00)
[2019-08-28] MEDS ORDERED: THEOPHYLLINE PO SCH (09:00)
[2019-08-28] MEDS ORDERED: ESCITALOPRAM OXALATE 5MG TABLET (LEXAPRO) PO SCH (09:00)
[2019-08-28] MEDS ORDERED: MORPHINE 2 MG/ML 1ML VIAL (J2270) IV PRN (12:30)
--- NOTE | 2019-08-28 12:34 | CCN ---
DATE: 08/28/2019 The patient was seen and examined this morning during bedside rounds. Yesterday after discussion with the patient as well as with her she was placed on COMFORT MEASURES ONLY. Overnight the patient was continued on bilevel positive airway pressure (BiPAP) which was continued for comfort. In the bridge repairer she was complaining of having anxiety and continued shortness of breath and had felt that it was "happening" and that her was eminent. She was therefore increased on her anxiolytic medication as well as her opioid medications. This morning the patient has been somnolent. She did have brief episodes off of BiPAP but for the past few hours has continued on BiPAP and has been minimally arousable. The patient's has been at her bedside throughout the night and this morning. Emotional support was provided to the patient's . 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 The patient also has family members that are planning to travel in to see her. - Will continue with medications for comfort with anxiolytics as well as opioids for air hunger and work of breathing. - Continue with the BiPAP or nasal cannula oxygen as needed for comfort. CODE STATUS: DO NOT RESUSCITATE/DO NOT INTUBATE, on COMFORT MEASURES ONLY. Total time spent with the patient, not including any procedures, was approximately 30 minutes. Please do not hesitate to call if any further questions or concerns. [facility]
[2019-08-28] MEDS: MORPHINE 10 MG/ML 1ML VIAL (J2270) IV PRN ×2 (13:02→15:00)
--- NOTE | 2019-08-28 18:57 | DS.PDOC ---
Discharge Summary General Date of Admission Aug 27, 2019 at 10:56 Date of Discharge 08/28/19 Attending Physician: Olga Lidia Michelle MD Specialist/Consultants Involve: JONATHAN GRANT MD Discharge Summary THIS IS A SUMMARY HISTORY OF PRESENT ILLNESS: The patient is a 53-year-old female with past medical history of end-stage COPD with genetic variant alpha-1 anti-trypsin deficiency, anxiety, history of MRSA who presented to [facility] emergency room after having worsening shortness of breath over the past one week. The patient was very short of breath in the emergency room and was unable to fully per dissipate with her evaluation due to her being on BiPAP. She is also had an anterior chest pressure, 10 out of 10, localized, pressure she is familiar with whenever she has a COPD flareup. She states she's had associated cough, increased weakness, wheezing, palpitations, loss of appetite, fevers, nausea, lightheadedness at home. Review of systems below. She went to see her primary care provider who placed her on steroids and antibiotics but this did not improve her condition. She called 911 today due to increased difficulty breathing. At baseline the patient wears 2 L nasal cannula during the day and uses BiPAP at nighttime and during the day as needed. In the emergency room heart rate ranged between 122-155, blood pressure 136/83, respiratory rate 3440, 87% on 2 L. The patient was bumped up to 9 L nasal cannula and placed on BiPAP for comfort. Chest x-ray showed chronic emphysematous changes. CTA ruled out pulmonary emboli on preliminary reading. She was given a total of 125 methylprednisolone, 6 DuoNeb treatments and anxiolytic in the emergency room. On my evaluation her heart rate was 155, blood pressure was stable and she was breathing at 40/minute. She was ashen in appearance. Troponin was slightly elevated at 0.16, WBC 18,000, blood sugar 186, lactic acid high at 2.01, BNP and TSH were within normal limits. ECG showed sinus tachycardia, abnormal. When compared to prior ECG on file it appeared to be similar. The patient was admitted to the ICU with a diagnosis of acute on chronic respiratory failure, acute COPD exacerbation. The case was discussed with on-call tumbler plater and was officially consulted to see. HOSPITAL COURSE: Case was further discussed with cardiology, as her troponins elevated to greater than 2. This was believed to be secondary to ischemic demand due to her very high heart rates, sinus tachycardia. The patient's blood pressure remained low despite 2 L of normal saline bolus, continuous IV fluid. Cardiology came to see her and during his evaluation it was discussed that there were no other options for treatment other than what we were currently doing. We were limited on medications to help control her higher than normal heart rate due to her low blood pressure. The patient was previously a DNR/DNI on a prior hospitalization and this was discussed at length with the patient who decided to be made DNR/DNI again. A new MOLST form was filled out with cardiology at that time. Dr. Grant, pulmonology, was consulted as well and spoke with the patient later in the day. It was explained to the patient and her that at this time there is nothing more to do for her severe lung disease. The patient was not a candidate for a lung transplant and options for treatment were very limited at this point and her critical state. Upon further discussion with her, the patient made herself comfort measures only. This was discussed with the patient's as well. The patient was started on morphine, Ativan and she was made comfortable. At approximately 18:03 on 08/28/2019 time of was called. Her was at the bedside. PAST MEDICAL HISTORY: 1. End-stage COPD 2. Alpha-1 antitrypsin disease, genetic variant as per notes 3. Anxiety PAST SURGICAL HISTORY: 1. gastric tumor removal 2. C section FAMILY HISTORY: Father: Esophageal cancer metastatic- age unknown Mother: No known issues, in SOCIAL HISTORY: She is and lives at home with her . Does not smoke, does not use drugs, does not use alcohol. She is a F[employer]. will be her surrogate decision maker. ALLERGIES: Please see below. HOME MEDICATIONS: Please see below. IMAGING: CXR: No acute disease, chronic changes CTA chest: 1. No evidence for pulmonary embolus. Normal thoracic aorta. 2. Chronic advanced emphysematous disease with scattered saccular bronchiectatic changes and scarring. 3. No acute mediastinal or pleuroparenchymal process identified. 4. Solitary nodule in the apical left lower lobe slightly decreased in size. ASSESSMENT: 53 y/o F admitted for acute on chronic hypercapnic and hypoxic respiratory failure, COPD exacerbation. DIAGNOSES: 1. Acute hypercapnic, hypoxic respiratory failure likely 2/2 to COPD exacerbation, end stage and severe pulmonary HTN 2. Hypotension likely 2/2 worsening respiratory failure, heart failure 3. Ischemic demand 4. Lactic acidosis 5. Severe pulmonary hypertension 5. Anxiety TIME SPENT ON DISCHARGE: <30 mins Vital Signs/I&Os Vital Signs Date Time Temp Pulse Resp B/P (MAP) Pulse Ox O2 Delivery O2 Flow Rate FiO2 08/27/19 20:27 22 NIPPV (BIPAP/CPAP) 08/27/19 20:00 114 83/60 (68) 94 5.0 08/27/19 16:00 98.8 08/27/19 10:15 40 I&O- Last 24 Hours up to 6 AM 08/28/19 06:00 Intake Total 3568 ml Balance 3568 ml Microbiology Microbiology 08/27/19 Blood Culture - Preliminary, Resulted No growth after 24 hours . All specim... 08/27/19 Respiratory Virus Panel (PCR) (CHRISTOPHER) - Final, Complete 08/27/19 Blood Culture - Preliminary, Resulted No growth after 24 hours . All specim... Discharge Medications Scheduled Acetylcysteine (Nac) 600 Mg Capsule, 600 MG PO BID, (Reported) Cetirizine HCl (Cetirizine HCl) 10 Mg Tablet, 10 MG PO QHS, (Reported) Escitalopram Oxalate (Escitalopram Oxalate) 10 Mg Tablet, 10 MG PO DAILY, (Reported) 15MG TOTAL DAILY Escitalopram Oxalate (Lexapro) 5 Mg Tablet, 5 MG PO DAILY, (Reported) 15MG TOTAL DAILY Fluticasone/Vilanterol (Breo Ellipta 200-25 Mcg INH) 1 Inh Inh, 1 PUFF INH DAILY, (Reported) Magnesium Oxide (Magnesium) 400 Mg Capsule, 400 MG PO QHS, (Reported) Multivitamin (Multivitamins) 1 Each Capsule, 1 CAP PO DAILY, (Reported) Prednisone (Prednisone) 10 Mg Tablet, 10 MG PO TAPER, (Reported) FILLED 08/26/19 - 30MG DAILY FOR 4 DAYS, 20MG DAILY FOR 4 DAYS, 10MG DAILY FOR 4 DAYS Theophylline Anhydrous (Theophylline Anhydrous) 300 Mg Tab.er.12h, 300 MG PO QPM, (Reported) TAKES AT 1500 Theophylline Anhydrous (Theophylline Anhydrous) 450 Mg Tab.er.12h, 450 MG PO QAM, (Reported) Umeclidinium Honeydew (Incruse Ellipta) 62.5 Mcg Blst.w.dev, 1 PUFF INH DAILY, (Reported) Vitamin B Complex (Vitamin B Complex) 1 Each Tablet, 1 TAB PO DAILY, (Reported) [Ip6] , 2 TAB PO BID, (Reported) [L-Theanine] , 200 MG PO QHS, (Reported) Scheduled PRN Acetaminophen (Acetaminophen) 325 Mg Tablet, 650 MG PO QID PRN for PAIN, (Reported) Albuterol Sulfate (Ventolin Hfa) 18 Gm Hfa.aer.ad, 2 PUFF INH Q4H PRN for SHORTNESS OF BREATH, (Reported) Alprazolam (Alprazolam) 0.25 Mg Tablet, 0.25 MG PO BID PRN for ANXIETY, (Reported) Guaifenesin (Mucinex) 600 Mg Tab.er.12h, 600 MG PO BID PRN for COUGH, (Reported) Ibuprofen (Ibuprofen) 600 Mg Tablet, 600 MG PO TID PRN for PAIN, (Reported) Levalbuterol HCl (Levalbuterol HCl) 0.63 Mg/3 Ml Vial.neb, 0.63 MG INH Q4H PRN for SHORTNESS OF BREATH, (Reported) [Passion Flower] , 1 TAB PO DAILY PRN for ANXIETY, (Reported) Allergies Coded Allergies: Cephalosporins (Verified Allergy, Intermediate, hives, 10/20/18) azithromycin (Verified Allergy, Mild, RASH, 10/20/18) Penicillins (Verified Allergy, Unknown, 07/29/18) gluten (Verified Allergy, Unknown, 07/29/18) soy (Verified Allergy, Unknown, 07/29/18) mirtazapine (Verified Adverse Reaction, Unknown, HOOKER, 10/20/18) Olga Lidia Michelle MD Aug 28, 2019 18:57
[2019-08-29] MEDS: IPRATROPIUM 0.5MG/ALBUTEROL 2.5MG INH SOL UD 3ML (DUONEB) NEB SCH (07:15)
== END 2019-08-28 18:02 | disposition expired | DRG 133 ==
LOC: M ED 07:53 → EDBD 07:53 → M ED INP 10:56 → ENRESERV 11:48 → M ICU 12:29
PROVIDERS: ADMIT Internal Medicine; ATTEND Internal Medicine
DX: J96.01 Acute respiratory failure with hypoxia (principal); R64 Cachexia; I24.8 Other forms of acute ischemic heart disease; E87.2 Acidosis; E88.01 Alpha-1-antitrypsin deficiency; I95.9 Hypotension, unspecified; I27.29 Other secondary pulmonary hypertension; I27.81 Cor pulmonale (chronic); J44.1 Chronic obstructive pulmonary disease with (acute) exacerbation; I50.810 Right heart failure, unspecified; F41.9 Anxiety disorder, unspecified; R00.0 Tachycardia, unspecified; Z66 Do not resuscitate; Z51.5 Encounter for palliative care; Z79.899 Other long term (current) drug therapy; Z88.8 Allergy status to other drugs, medicaments and biological substances; Z88.0 Allergy status to penicillin; G47.33 Obstructive sleep apnea (adult) (pediatric); J96.02 Acute respiratory failure with hypercapnia